=== PATIENT | female | born 1950 | race Hispanic/Latino ===

== ENCOUNTER 2018-11-02 07:23 | Inpatient (IN) | payer MEDICARE, BC ==
[2018-11-02] MEDS ORDERED: Sodium Chloride 0.9% 1,000 ML IV STA ×2 (07:37→15:55)
--- NOTE | 2018-11-02 07:56 | ED PDOC ---
Arrival/HPI - General Chief Complaint: Weakness/Neurological Deficit Time Seen by Provider: 11/02/18 07:26 Historian: Patient - History of Present Illness Narrative History of Present Illness (Text): 11/02/18 08:07 68 year old F with pmh of kidney CA (last chemo 3d prior), L nephrectomy, HLD and spinal tumor resection presents with chief complaint of generalized weakness x4days. Patient reports decreased PO intake x3days. Patient also complains of nausea w/ dry mouth and non bloody diarrhea recently. Patient denies being on dialysis or any use of antibiotics. Patient denies any slurred speech, fevers, chills, headache, dizziness, chest pain, shortness of breath, dyspnea on exertion, cough, diaphoresis, abdominal pain, back pain, neck pain, or any other complaint. PCP: Dr. Mcclelland Past Medical History - Provider Review Nursing Documentation Reviewed: Yes - Infectious Disease Hx of Infectious Diseases: None - Reproductive Menopause: Yes - Cardiac Hx Cardiac Disorders: No Hx Pacemaker: No - Pulmonary Hx Respiratory Disorders: No - Neurological Hx Neurological Disorder: No Hx Paralysis: No - HEENT Hx HEENT Disorder: No - Renal Hx Renal Disorder: Yes Other/Comment: kidney CA - Endocrine/Metabolic Hx Endocrine Disorders: No - Hematological/Oncological Hx Blood Transfusions: No - Integumentary Hx Dermatological Disorder: No - Musculoskeletal/Rheumatological Hx Musculoskeletal Disorders: No - Gastrointestinal Hx Gastrointestinal Disorders: No - Genitourinary/Gynecological Hx Genitourinary Disorders: No - Psychiatric Hx Psychophysiologic Disorder: No Hx Emotional Abuse: No Hx Physical Abuse: No Hx Substance Use: No - Surgical History Other/Comment: left nephrectomy. spine surgery - Anesthesia Hx Anesthesia: Yes Hx Anesthesia Reactions: No Hx Malignant Hyperthermia: No - Suicidal Assessment Feels Threatened In Home Enviroment: No Family/Social History - Physician Review Nursing Documentation Reviewed: Yes Family/Social History: Unknown Family HX Smoking Status: Never Smoked Hx Alcohol Use: Yes (OCCASIONAL WINE) Hx Substance Use: No Allergies/Home Meds Allergies/Adverse Reactions: Allergies No Known Allergies Allergy (Verified 10/29/15 10:23) Home Medications: Home Meds Medication Instructions Recorded Confirmed Ezetimibe [Zetia] 10 mg PO DAILY 11/02/18 11/02/18 Gabapentin [Neurontin] 100 cap PO TID 11/02/18 11/02/18 Rosuvastatin Calcium [Crestor] 10 mg PO DAILY 11/02/18 11/02/18 Valsartan 320 mg PO DAILY 11/02/18 11/02/18 amLODIPine [Norvasc] 10 mg PO DAILY 11/02/18 11/02/18 Review of Systems - Physician Review All systems were reviewed & negative as marked: Yes - Review of Systems Constitutional: absent: Fevers Eyes: absent: Vision Changes, Eye Pain ENT: absent: Sore Throat, Rhinorrhea Respiratory: absent: SOB, Cough Cardiovascular: absent: Chest Pain Gastrointestinal: Diarrhea, Nausea. absent: Abdominal Pain, Constipation, Vomiting Genitourinary Female: absent: Dysuria, Frequency, Hematuria, Urine Output Changes, Vaginal Bleeding, Vaginal Discharge Musculoskeletal: absent: Arthralgias, Back Pain Skin: absent: Rash, Skin Lesions Neurological: absent: Headache, Dizziness Psychiatric: absent: Anxiety, Depression Physical Exam Vital Signs Reviewed: Yes Vital Signs Temp Pulse Resp BP Pulse Ox 11/02/18 07:23 97.3 F L 77 18 84/56 L 100 Temperature: Afebrile Blood Pressure: Hypotensive Pulse: Regular Respiratory Rate: Normal Appearance: Positive for: Well-Appearing, Non-Toxic, Comfortable Pain Distress: Mild Mental Status: Positive for: Alert and Oriented X 3 - Systems Exam Head: Present: Atraumatic, Normocephalic Pupils: Present: PERRL Extroacular Muscles: Present: EOMI Conjunctiva: Present: Normal Ears: Present: Normal, NORMAL TM Mouth: Present: Dry Pharnyx: No: ERYTHEMA, EXUDATE Neck: Present: Normal Range of Motion, Trachea Midline, Other (c7 to T5 scar n oted, no crepitus or erythema, well healed). No: Meningeal Signs, MIDLINE TENDERNESS, JVD, Bruit Respiratory/Chest: Present: Clear to Auscultation, Good Air Exchange. No: Re spiratory Distress, Accessory Muscle Use Cardiovascular: Present: Regular Rate and Rhythm, Normal S1, S2. No: Murmurs Abdomen: No: Tenderness, Distention, Peritoneal Signs Back: Present: Normal Inspection. No: CVA Tenderness, Midline Tenderness Upper Extremity: Present: Normal Inspection, Normal ROM, NORMAL PULSES, Neurovascularly Intact. No: Cyanosis, Edema Lower Extremity: Present: Normal Inspection, NORMAL PULSES, Neurovascularly Intact. No: Edema, Temperature Abnormalties Neurological: Present: GCS=15, CN II-XII Intact, Speech Normal Skin: Present: Warm, Dry, Normal Color. No: Rashes Psychiatric: Present: Alert, Oriented x 3, Normal Insight, Normal Concentration Medical Decision Making ED Course and Treatment: 11/02/18 08:05 Impression: 68 year old F w/ hx of HLD, L kidney nephrectomy 2/2 Kidney CA currently on chemo p/w presents with chief complaint of generalized weakness x4days. Recent, nausea, vomiting, diarrhea. No recent antibiotics. No dark or bloody stool. No meningeal signs. No unilateral weakness or slurred speech. No abdominal pain, chest pain, rash or fever, chills or night sweats. Pt initially hypotensive and dry appearing on exam, likely dehydration but given on chemo will seek infectious w/u. Plan: -- Labs -- EKG -- Chest X-ray -- UA -- Reassess and disposition Prior Visits: Notes and results from previous visits were reviewed. Progress Notes: 11/02/18 08:17 EKG shows NSR at 72 BPM, No STEMI. 11/02/18 08:33 QTc prolonged: appreciate consult w/ Pharmacy: [facility] 11/02/18 09:21 Vitals improved Pending CMP, CBC largely unremarkable Lactic elevated at 2.3, fluids running, no leukocytosis or fever CXR per my read unremarkable, Pending UA, CMP 11/02/18 09:46 Last cr 1.2 per family 1 month prior, 10 now severe LAURA: pt notes making urine yesterday Severe LAURA: endorsed to ICU Dr. Rodrigues to eval Hypocalcemia w/ Long QT: calcium ordered 11/02/18 10:24 appreciate consult w/ Dr. Rodrigues: pt to be admitted ICU Paged Dr. Gary for admission: Pt in NAD 11/02/18 10:29 appreciate consult w/ Dr. Gary (Nephrology + IM): to admit to his service w/ ICU pt in [facility], agreeable to plan - RAD Interpretation Radiology Orders: 11/02/18 07:37 CHEST TWO VIEWS (PA/LAT) [RAD] Stat - Medication Orders Current Medication Orders: Sodium Chloride (Sodium Chloride 0.9%) 1,000 mls @ 999 mls/hr IV .Q1H1M STA Stop: 04/10/19 08:37 - Scribe Statement The provider has reviewed the documentation as recorded by the Gavin Hyman All medical record entries made by the Brunaibsteven were at my direction and personally dictated by me. I have reviewed the chart and agree that the record accurately reflects my personal performance of the history, physical exam, medical decision making, and the department course for this patient. I have also personally directed, reviewed, and agree with the discharge instructions and disposition. Disposition/Present on Arrival - Present on Arrival Any Indicators Present on Arrival: No History of DVT/PE: No History of Uncontrolled Diabetes: No Urinary Catheter: No History of Decub. Ulcer: No History Surgical Site Infection Following: None - Disposition Have Diagnosis and Disposition been Completed?: Yes Diagnosis: LAURA (acute kidney injury), Hypocalcemia Disposition Time: 09:48 Patient Problems: Current Active Problems Problem Status Onset LAURA (acute kidney injury) Acute Hypocalcemia Acute Condition: STABLE Forms: [facility] ([place])
[2018-11-02 08:16] LABS: BASO # 0.01 K/mm3 (0.0-2.0); BASO % 0.2 % (0.0-3.0); EOS % 0.5 % (1.5-5.0); HEMOGLOBIN 12.8 g/dL (12.0-16.0); LYMPH % 14.8 % (22.0-35.0); MEAN CELL VOLUME 106.1 fl (80.0-105.0); MEAN CORPUSCULAR HGB CONC 34.9 g/dl (31.0-37.0); MEAN PLATELET VOLUME 10.1 fl (7.0-11.0); MONO # 0.3 (0.1-0.6); MONO % 4.1 % (1.0-6.0); RBC 3.46 10^6/uL (3.5-6.1); RED CELL DISTRIBUTION WIDTH 15.1 % (11.5-14.5); WHITE BLOOD COUNT 6.6 10^3/uL (4.5-11.0)
[2018-11-02 08:25] LABS: VENOUS BLOOD GAS BASE EXCESS -12.3 mmol/L (0.0-2.0); VENOUS BLOOD GAS PO2 68 mm/Hg (30-55); VENOUS BLOOD PH 7.19 (7.32-7.43)
[2018-11-02] MEDS ORDERED: DiphenhydrAMINE 50 mg/ml Inj IVP STA (08:40)
[2018-11-02 09:32] LABS: ALB/GLOB RATIO 1.6 (1.1-1.8); ALBUMIN 3.8 g/dL (3.0-4.8)
[2018-11-02] MEDS ORDERED: Sodium Chloride 0.9% 1,000 ML IV ONE (09:45)
[2018-11-02 10:08] LABS: TROPONIN I 0.27 ng/mL
--- NOTE | 2018-11-02 10:11 | RAD ---
Date of service: 11/02/2018 HISTORY: hx of ca, weak COMPARISON: No prior. TECHNIQUE: Chest PA and lateral views FINDINGS: LUNGS: No active pulmonary disease. PLEURA: No significant pleural effusion identified. No pneumothorax apparent. CARDIOVASCULAR: No aortic atherosclerotic calcification present. Normal cardiac size. No pulmonary vascular congestion. OSSEOUS STRUCTURES: Surgical hardware in the upper thoracic spine. VISUALIZED UPPER ABDOMEN: Normal. OTHER FINDINGS: Right-sided Port-A-Cath IMPRESSION: No active disease.
--- NOTE | 2018-11-02 11:34 | CARD ---
APPROVED REPORT Date of service: 11/02/2018 EKG Measurement Heart [id number] <Conclusion> Normal sinus rhythm Nonspecific ST abnormality Prolonged QT Abnormal ECG
--- NOTE | 2018-11-02 11:59 | CP.PCM.CON ---
<Gianni Joaquin - Last Filed: 11/02/18 13:28> History of Present Illness - History of Present Illness History of Present Illness: Gianni Joaquin DO, PGY-1 MICU Consult Note for Dr. Rebecca Rodrigues CC: generalized weakness, decreased PO intake HPI: Ms. Sanders is a pleasant 68 year old female with PMH of renal cell carcinoma (s/p L nephrectomy and spinal tumor resection, last chemo 3 days ago), HTN, and HLD who presented to [facility] ED with a complaint of generalized weakness, fatigue and loss of appetite since last Wednesday. She states she has generally not felt well for the last 4 days. She states that last Wednesday she had persistent nausea/vomiting and diarrhea which has improved but the weakness/fatigue has worsened. In ED, she was noted to be hypotensive and severely hypocalcemic with EKG changes, prompting MICU consultation. Patient states that she has xerostomia but otherwise denies fever/chills, body aches, CP, SOB, current abd pain/nausea/vomiting/diarrhea, urinary complaints, PRATER, changes in vision, or recent sick contacts. 12-point ROS was otherwise negative except as specified above. PMD: Dr. Mcclelland Past Medical History: renal cell carcinoma (s/p L nephrectomy and spinal tumor resection, last chemo 3 days ago), HTN, and HLD Past Surgical History: L nephrectomy, spinal tumor resection, denies other surgical history Allergies: NKA Home medications: Crestor 10 mg daily, Zetia 10 mg daily, Norvasc 10 mg daily, Gabapentin 100 mg TID, valsartan 320 mg daily Family History: reviewed, non-contributory Social History: admits to prior social EtOH use but has not had a drink for the past year, denies current or prior tobacco or illicit drug use. She lives at home with her and has good support system. Past Patient History - Infectious Disease Hx of Infectious Diseases: None - Past Social History Smoking Status: Never Smoked - CARDIAC Hx Cardiac Disorders: No Hx Pacemaker: No - PULMONARY Hx Respiratory Disorders: No - NEUROLOGICAL Hx Neurological Disorder: No Hx Paralysis: No - HEENT Hx HEENT Problems: No - RENAL Hx Chronic Kidney Disease: Yes Other/Comment: kidney CA - ENDOCRINE/METABOLIC Hx Endocrine Disorders: No - HEMATOLOGICAL/ONCOLOGICAL Hx Blood Transfusions: No - INTEGUMENTARY Hx Dermatological Problems: No - MUSCULOSKELETAL/RHEUMATOLOGICAL Hx Musculoskeletal Disorders: No - GASTROINTESTINAL Hx Gastrointestinal Disorders: No - GENITOURINARY/GYNECOLOGICAL Hx Genitourinary Disorders: No - PSYCHIATRIC Hx Psychophysiologic Disorder: No Hx Emotional Abuse: No Hx Physical Abuse: No Hx Substance Use: No - SURGICAL HISTORY Other/Comment: left nephrectomy. spine surgery - ANESTHESIA Hx Anesthesia: Yes Hx Anesthesia Reactions: No Hx Malignant Hyperthermia: No Meds Allergies/Adverse Reactions: Allergies Allergy/AdvReac Type Severity Reaction Status Date / Time No Known Allergies Allergy Verified 10/29/15 10:23 - Medications Medications: Current Medications Sodium Chloride (Sodium Chloride 0.9%) 1,000 mls @ 250 mls/hr IV .Q4H ONE Stop: 11/02/18 13:44 Last Admin: 11/02/18 10:09 Dose: 250 mls/hr Physical Exam - Constitutional Appears: No Acute Distress, Other (no acute respiratory distress but appears fatigued, A/o x 4) - Head Exam Head Exam: ATRAUMATIC, NORMOCEPHALIC - Eye Exam Eye Exam: EOMI, PERRL - ENT Exam ENT Exam: Mucous Membranes Dry - Neck Exam Neck exam: Positive for: Full Rom. Negative for: Lymphadenopathy, Thyromegaly - Respiratory Exam Respiratory Exam: Clear to Auscultation Bilateral, NORMAL BREATHING PATTERN. absent: Accessory Muscle Use, Rales, Rhonchi, Wheezes, Respiratory Distress - Cardiovascular Exam Cardiovascular Exam: REGULAR RHYTHM, RRR, +S1, +S2. absent: Diastolic murmur, Gallop, Rubs, Systolic Murmur - GI/Abdominal Exam GI & Abdominal Exam: Normal Bowel Sounds, Soft. absent: Guarding, Rebound, Tenderness - Extremities Exam Extremities exam: Positive for: full ROM. Negative for: pedal edema - Back Exam Back exam: NORMAL INSPECTION - Neurological Exam Neurological exam: Alert, Oriented x3 - Psychiatric Exam Psychiatric exam: Normal Affect, Normal Mood - Skin Skin Exam: Dry, Pallor, Warm Results - Vital Signs Recent Vital Signs: Last Vital Signs Temp 97.3 F L 11/02/18 07:23 Pulse 72 11/02/18 10:17 Resp 18 11/02/18 10:17 BP 78/48 L 11/02/18 10:31 Pulse Ox 99 11/02/18 10:17 - Labs Result Diagrams: 11/02/18 07:58 11/02/18 12:30 Labs: Laboratory Results - last 24 hr 11/02/18 11/02/18 11/02/18 07:58 07:58 07:58 WBC 6.6 RBC 3.46 L Hgb 12.8 Hct 36.7 MCV 106.1 H MCH 37.0 H MCHC 34.9 RDW 15.1 H Plt Count 130 MPV 10.1 Neut % (Auto) 80.4 H Lymph % (Auto) 14.8 L [place] % (Auto) 4.1 Eos % (Auto) 0.5 L Baso % (Auto) 0.2 Lymph # (Auto) 1.0 L [place] # (Auto) 0.3 Eos # (Auto) 0.0 Baso # (Auto) 0.01 Absolute Neuts (auto) 5.35 pO2 68 H VBG pH 7.19 L* VBG pCO2 40.0 VBG HCO3 15.3 L VBG Total CO2 16.5 L VBG O2 Sat (Calc) 89.7 H VBG Base Excess -12.3 L VBG Potassium 3.3 L Sodium 131.0 L 138 Chloride 91.0 L 99 Glucose 95 Lactate 2.3 H FiO2 21.0 Crit Value Called To Sugar hyde Crit Value Called By Carol Blood Gas Notified Time 823 Potassium 3.3 L Carbon Dioxide 14 L Anion Gap 28 H BUN 64 H Creatinine 10.0 H* Est GFR ( Amer) 5 Est GFR (Non-Af Amer) 4 Random Glucose 83 Calcium 4.0 L* Total Bilirubin 0.6 AST 113 H ALT 108 H Alkaline Phosphatase 74 Troponin I 0.27 H* Total Protein 5.4 L Albumin 3.8 Globulin 2.4 Albumin/Globulin Ratio 1.6 Venous Blood Potassium 3.3 L Assessment & Plan - Assessment and Plan (Free Text) Assessment: 68 yo F with PMH of renal cell carcinoma (s/p L nephrectomy and spinal tumor resection, last chemo 3 days ago), HTN, and HLD admitted to MICU for management of acute renal failure, severe hypocalcemia with EKG changes, and positive troponin. Plan: Neuro: AAOx3, no focal deficit, moving extremities past midline, able to protect airway Reorient as necessary Cardio: Patient has been intermittently hypotensive with lowest MAP of 58 Access port for levophed, also has peripheral access May need to consider additional access such as PICC if needed EKG: QT prolongation consistent with hypocalcemia Troponin elevation may be 2/2 acute renal failure but will trend q4h overnight Maintain MAP>65 Monitor for S/Sx of HD compromise Cardiology consult placed, all recs appreciated /Nephro: Severe hypocalcemia may be 2/2 acute renal failure vs chemotherapy induced vs malignancy related Patient admits to having decreased UOP for past 4 days Akers placement with strict I & O Check BMP q4h overnight Single dose of Ca gluconate 1000 mg given in ED, will recheck and continue to replete as needed Continue to monitor Mg, Phos, replete as needed Consider adding phosphate binding agent with meals, given hyperphosphatemia Additional w/u of hypocalcemia with PTH, total protein, urine Cr, Ca AGMA identified on VBG performed on admission, likely 2/2 acute renal failure Continue IVF resuscitation, 1 L bolus given in ED, continue NS at 250 cc/hr Will add 150 mEq of HCO3 to IVF and monitor HCO3 closely May need to consider dialysis if patient is not responsive to fluid challenge Avoid nephrotoxic agents Nephrology, Dr. Gary following, all recs appreciated Pulm: Able to protect airway now and SpO2 is > 95% on room air Supplemental O2 NC PRN to maintain SpO2 > 90% GI: Tolerating diet well without nausea/vomiting Avoid zofran due to QT prolongation, may give phenergan if needed Endo: Random glucose: 83 Maintain euglycemia Heme/Onc: H/H stable at 12.8/36.7 Macrocytosis noted, may be malignancy related Will check folate, B12 Continue monitoring H/H and for sx of HD compromise ID: Afebrile, no leukocytosis F/u dumont cx, procal, lactate Monitor for sx of infection DVT/GI PPX: SC Heparin/protonix Full Code Heart Healthy, renal diet Monitor in MICU Patient seen, examined with, and plan discussed with my attending Dr. Rebecca Joaquin D.O. IM Resident PGY-1 Pager: [phone] <Constance Rodrigues - Last Filed: 11/02/18 18:17> Meds - Medications Medications: Current Medications Calcium Carbonate (Caltrate) 600 mg PO BID TEODORO Al Hydrox/Mg Hydrox/Simethicone 30 ml/Diphenhydramine HCl 75 mg/Lidocaine 30 ml 0 ml PO Q2H PRN PRN Reason: Mouth/Throat Pain Heparin Sodium (Porcine) (Heparin) 5,000 units SC Q8 TEODORO; Protocol Last Admin: 11/02/18 14:20 Dose: 5,000 units NOREPINEPHRINE BIT/0.9 % NACL (Levophed 4 Mg/ 250 Ml Ns Premixed) 4 mg in 250 mls @ 15 mls/hr IV .[id number] PRN; Protocol PRN Reason: TITRATE PER MD ORDER Last Titration: 11/02/18 15:46 Dose: 6 mcg/min, 22.5 mls/hr Potassium Chloride (Potassium Chloride 10 Meq/100 Ml) 10 meq in 100 mls @ 100 mls/hr IVPB ONCE ONE Stop: 11/02/18 18:32 Calcium Gluconate (Calcium Gluconate 1g/50ml Ns) 1 gm in 50 mls @ 50 mls/hr IV ONCE ONE Stop: 11/02/18 18:44 Sevelamer HCl (Renagel) 800 mg PO [facility] Vitamin A (Vitamin A & D Oint Ud Foilpak) 1 ea TOP Q6 PRN PRN Reason: Apply to dry lips Last Admin: 11/02/18 13:50 Dose: 1 ea Results - Vital Signs Recent Vital Signs: Last Vital Signs Temp 98.2 F 11/02/18 15:41 Pulse 68 11/02/18 15:41 Resp 14 11/02/18 15:41 BP 107/58 L 11/02/18 15:42 Pulse Ox 99 11/02/18 15:41 - Labs Result Diagrams: 11/02/18 07:58 11/02/18 16:00 Labs: Laboratory Results - last 24 hr 11/02/18 11/02/18 11/02/18 07:58 07:58 07:58 WBC 6.6 RBC 3.46 L Hgb 12.8 Hct 36.7 MCV 106.1 H MCH 37.0 H MCHC 34.9 RDW 15.1 H Plt Count 130 MPV 10.1 Neut % (Auto) 80.4 H Lymph % (Auto) 14.8 L [place] % (Auto) 4.1 Eos % (Auto) 0.5 L Baso % (Auto) 0.2 Lymph # (Auto) 1.0 L [place] # (Auto) 0.3 Eos # (Auto) 0.0 Baso # (Auto) 0.01 Absolute Neuts (auto) 5.35 pO2 68 H VBG pH 7.19 L* VBG pCO2 40.0 VBG HCO3 15.3 L VBG Total CO2 16.5 L VBG O2 Sat (Calc) 89.7 H VBG Base Excess -12.3 L VBG Potassium 3.3 L Sodium 131.0 L 138 Chloride 91.0 L 99 Glucose 95 Lactate 2.3 H FiO2 21.0 Crit Value Called To Sugar hyde Crit Value Called By Carol Blood Gas Notified Time 823 Potassium 3.3 L Carbon Dioxide 14 L Anion Gap 28 H BUN 64 H Creatinine 10.0 H* Est GFR ( Amer) 5 Est GFR (Non-Af Amer) 4 Random Glucose 83 Calcium 4.0 L* Phosphorus Magnesium Total Bilirubin 0.6 AST 113 H ALT 108 H Alkaline Phosphatase 74 Total Creatine Kinase CK-MB (CK-2) CK-MB (CK-2) % Troponin I 0.27 H* Total Protein 5.4 L Albumin 3.8 Globulin 2.4 Albumin/Globulin Ratio 1.6 25-OH Vitamin D Total Venous Blood Potassium 3.3 L Urine Color Urine Appearance Urine pH Ur Specific Hatch Urine Protein Urine Glucose (UA) Urine Ketones Urine Blood Urine Nitrate Urine Bilirubin Urine Urobilinogen Ur Leukocyte Esterase Urine RBC Urine WBC Ur Epithelial Cells Urine Bacteria U Random Total Protein 11/02/18 11/02/18 11/02/18 12:15 12:15 12:30 WBC RBC Hgb Hct MCV MCH MCHC RDW Plt Count MPV Neut % (Auto) Lymph % (Auto) [place] % (Auto) Eos % (Auto) Baso % (Auto) Lymph # (Auto) [place] # (Auto) Eos # (Auto) Baso # (Auto) Absolute Neuts (auto) pO2 31 VBG pH 7.26 L VBG pCO2 35.0 L VBG HCO3 15.7 L VBG Total CO2 16.8 L VBG O2 Sat (Calc) 49.9 VBG Base Excess -10.4 L VBG Potassium 3.5 L Sodium 134.0 133 Chloride 95.0 L 93 L Glucose 82 Lactate 1.4 FiO2 21.0 Crit Value Called To Crit Value Called By Blood Gas Notified Time Potassium 3.5 L Carbon Dioxide 16 L Anion Gap 27 H BUN 72 H Creatinine 11.0 H* Est GFR ( Amer) 4 Est GFR (Non-Af Amer) 3 Random Glucose 79 Calcium 4.3 L* Phosphorus 16.1 H Magnesium 1.1 L Total Bilirubin AST ALT Alkaline Phosphatase Total Creatine Kinase CK-MB (CK-2) CK-MB (CK-2) % Troponin I 0.25 H* Total Protein Albumin Globulin Albumin/Globulin Ratio 25-OH Vitamin D Total 28.1 L Venous Blood Potassium 3.5 L Urine Color Urine Appearance Urine pH Ur Specific Hatch Urine Protein Urine Glucose (UA) Urine Ketones Urine Blood Urine Nitrate Urine Bilirubin Urine Urobilinogen Ur Leukocyte Esterase Urine RBC Urine WBC Ur Epithelial Cells Urine Bacteria U Random Total Protein 11/02/18 11/02/18 11/02/18 13:30 13:30 16:00 WBC RBC Hgb Hct MCV MCH MCHC RDW Plt Count MPV Neut % (Auto) Lymph % (Auto) [place] % (Auto) Eos % (Auto) Baso % (Auto) Lymph # (Auto) [place] # (Auto) Eos # (Auto) Baso # (Auto) Absolute Neuts (auto) pO2 VBG pH VBG pCO2 VBG HCO3 VBG Total CO2 VBG O2 Sat (Calc) VBG Base Excess VBG Potassium Sodium 131 L Chloride 94 L Glucose Lactate FiO2 Crit Value Called To Crit Value Called By Blood Gas Notified Time Potassium 3.0 L Carbon Dioxide 13 L Anion Gap 27 H BUN 72 H Creatinine 10.5 H* Est GFR ( Amer) 4 Est GFR (Non-Af Amer) 4 Random Glucose 166 H Calcium 4.2 L* Phosphorus 13.8 H Magnesium 1.8 Total Bilirubin AST ALT Alkaline Phosphatase Total Creatine Kinase CK-MB (CK-2) CK-MB (CK-2) % Troponin I 0.20 H* Total Protein Albumin Globulin Albumin/Globulin Ratio 25-OH Vitamin D Total Venous Blood Potassium Urine Color Yellow Urine Appearance Sl cloudy Urine pH 5.5 Ur Specific Hatch 1.025 Urine Protein 100 H Urine Glucose (UA) Negative Urine Ketones Negative Urine Blood Moderate H Urine Nitrate Negative Urine Bilirubin Negative Urine Urobilinogen 0.2 Ur Leukocyte Esterase Negative Urine RBC 5 - 10 H Urine WBC 5 - 10 H Ur Epithelial Cells 4 - 5 Urine Bacteria Mod U Random Total Protein 81 11/02/18 16:00 WBC RBC Hgb Hct MCV MCH MCHC RDW Plt Count MPV Neut % (Auto) Lymph % (Auto) [place] % (Auto) Eos % (Auto) Baso % (Auto) Lymph # (Auto) [place] # (Auto) Eos # (Auto) Baso # (Auto) Absolute Neuts (auto) pO2 VBG pH VBG pCO2 VBG HCO3 VBG Total CO2 VBG O2 Sat (Calc) VBG Base Excess VBG Potassium Sodium Chloride Glucose Lactate FiO2 Crit Value Called To Crit Value Called By Blood Gas Notified Time Potassium Carbon Dioxide Anion Gap BUN Creatinine Est GFR ( Amer) Est GFR (Non-Af Amer) Random Glucose Calcium Phosphorus Magnesium Total Bilirubin AST ALT Alkaline Phosphatase Total Creatine Kinase 9379 H CK-MB (CK-2) 13.3 H CK-MB (CK-2) % 0.1 L Troponin I Total Protein Albumin Globulin Albumin/Globulin Ratio 25-OH Vitamin D Total Venous Blood Potassium Urine Color Urine Appearance Urine pH Ur Specific Hatch Urine Protein Urine Glucose (UA) Urine Ketones Urine Blood Urine Nitrate Urine Bilirubin Urine Urobilinogen Ur Leukocyte Esterase Urine RBC Urine WBC Ur Epithelial Cells Urine Bacteria U Random Total Protein Addendum Addendum: 11/02/18 18:17 ICU Attending Addendum Patient seen and examined. Case reviewed on round with housestaff. Agree with resident note above with the following additions/exceptions 68F with PMH of renal cell carcinoma (s/p L nephrectomy and spinal tumor resection, last chemo 3 days ago), HTN presents with 3 days of diarrhea vomitting found to be in acute renal failure with severe hypocalcemia I suspect she is severaly dehydrted from volume loss fluids challenge at lest 3-4L insert akers, monitor urine output check renal US nephro on board managing electrolyte abnormalities including severe hypoCa, hypo mag, hypoK will start levophed keep MAP > 65 no fever, no leukocytosis thius holding off on empiric abx f.u dumont cultures Spoke with PMD Dr Mcclelland and updated her will place call out to her oncologist as well since they may be also a side effect of a medication she may be on which we will verify Rest of care as above in housestaff note Constance Rodrigues MD Pulmonary Critical Care Attending
[2018-11-02] MEDS ORDERED: Potassium Chloride 20 mEq ER Tab PO ONE (12:21)
[2018-11-02 12:31] LABS: VENOUS BLOOD GAS BASE EXCESS -10.4 mmol/L (0.0-2.0); VENOUS BLOOD GAS PO2 31 mm/Hg (30-55); VENOUS BLOOD PH 7.26 (7.32-7.43)
[2018-11-02] MEDS: NOREPINEPHRINE BIT/0.9 % NACL 4 MG/250 ML BAG IV PRN (12:45)
[2018-11-02 13:08] LABS: CALCIUM 4.3 mg/dL (8.4-10.5); TROPONIN I 0.25 ng/mL
[2018-11-02] MEDS ORDERED: Calcium Gluconate in NS 1 GM/50 ML BAG IV ONE ×3 (13:19→22:30)
[2018-11-02] MEDS ORDERED: Sodium Bicarbonate 8.4% 150 MEQ in Dextrose 5% In Water 1,000 ML IV ONE (13:23)
[2018-11-02] MEDS ORDERED: Magnesium Sulfate 2 gm/50 ml 2 GM/50 ML BAG IVPB ONE ×2 (13:29→22:26)
[2018-11-02] MEDS ORDERED: Aluminum Hydroxide/Magnesium 30 ML, DiphenhydrAMINE 75 MG, Lidocaine 2% Viscous 30 ML PO PRN (13:46)
[2018-11-02] MEDS: Vitamins A & D Oint UD Foilpak TOP PRN (13:50)
--- NOTE | 2018-11-02 14:16 | CP.PCM.HP ---
<Efraín John - Last Filed: 11/03/18 08:47> History of Present Illness - History of Present Illness History of Present Illness: Curtis Alvaro PGY2 - History and Physical for Dr. Gary CC: Fatigue HPI: 68 year old female with past medical history significant for HTN, HLD, renal cell carcinoma s/p left nephrectomy 2 years prior and spinal tumor resection and recent completion of chemotherapy who presented to [facility] ED with complaints of fatigue, generalized weakness, limited oral intake and diarrhea for the past 4 days. Patient reported that over the weekend she began to experience more and more feelings of fatigue and poor oral intake secondary to oral ulcers. She indicated that she developed diarrhea for which she credited to a stomach bug. She reports being mostly bed bound for the past few days. She denied headache, changes in vision, chest pain, shortness of breath, abdominal discomfort, constipation, nausea, vomiting, dysuria, hematuria, fever, chills. She did report minimal urine output secondary to poor oral intake, diarrhea like episodes x2-3 daily without blood or mucous, recent antibiotic usage or hospitalizations. She does follow with a Dr. Charles at [facility] for her oncological treatment plan. She indicates that she recently stopped her chemo regiment of cabometyx this Wednesday with plans to change her therapy. She reports taking this medication for the past few weeks. 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 Mcclelland Onc: Dr. Charles at [facility] Present on Admission - Present on Admission Any Indicators Present on Admission: No Review of Systems - Review of Systems All systems: reviewed and no additional remarkable complaints except (as mentioned in HPI) Past Patient History - Infectious Disease Hx of Infectious Diseases: None - Past Social History Smoking Status: Never Smoked - CARDIAC Hx Cardiac Disorders: No Hx Pacemaker: No - PULMONARY Hx Respiratory Disorders: No - NEUROLOGICAL Hx Neurological Disorder: No Hx Paralysis: No - HEENT Hx HEENT Problems: No - RENAL Hx Chronic Kidney Disease: Yes Other/Comment: kidney CA - ENDOCRINE/METABOLIC Hx Endocrine Disorders: No - HEMATOLOGICAL/ONCOLOGICAL Hx Blood Transfusions: No - INTEGUMENTARY Hx Dermatological Problems: No - MUSCULOSKELETAL/RHEUMATOLOGICAL Hx Musculoskeletal Disorders: No - GASTROINTESTINAL Hx Gastrointestinal Disorders: No - GENITOURINARY/GYNECOLOGICAL Hx Genitourinary Disorders: No - PSYCHIATRIC Hx Psychophysiologic Disorder: No Hx Emotional Abuse: No Hx Physical Abuse: No Hx Substance Use: No - SURGICAL HISTORY Other/Comment: left nephrectomy. spine surgery - ANESTHESIA Hx Anesthesia: Yes Hx Anesthesia Reactions: No Hx Malignant Hyperthermia: No Meds Allergies/Adverse Reactions: Allergies Allergy/AdvReac Type Severity Reaction Status Date / Time No Known Allergies Allergy Verified 10/29/15 10:23 Physical Exam - Constitutional Appears: Older Than Stated Age, Chronically Ill Additional comments: lethargic - Head Exam Head Exam: ATRAUMATIC, NORMOCEPHALIC - Eye Exam Eye Exam: EOMI, PERRL - ENT Exam Additional comments: oral ulcers, dry mouth - Respiratory Exam Respiratory Exam: Clear to Auscultation Bilateral, NORMAL BREATHING PATTERN. absent: Rales, Rhonchi, Wheezes - Cardiovascular Exam Cardiovascular Exam: REGULAR RHYTHM, +S1, +S2 - GI/Abdominal Exam GI & Abdominal Exam: Diminished Bowel Sounds, Soft. absent: Distended, Firm, Guarding, Mass - Extremities Exam Extremities exam: Negative for: calf tenderness, pedal edema, tenderness - Neurological Exam Neurological exam: Alert, CN II-XII Intact, Oriented x3 Additional comments: Motor and Sensory intact - Psychiatric Exam Additional comments: Lethargic, in good spirits, social smile, cooperative with exam - Skin Skin Exam: Dry, Warm Results - Vital Signs Recent Vital Signs: Last Vital Signs Temp 97.3 F L 11/02/18 07:23 Pulse 74 11/02/18 13:40 Resp 13 11/02/18 13:40 BP 108/52 L 11/02/18 13:30 Pulse Ox 98 11/02/18 13:40 - Labs Result Diagrams: 11/03/18 05:30 11/03/18 05:30 Labs: Laboratory Results - last 24 hr 11/02/18 11/02/18 11/02/18 07:58 07:58 07:58 WBC 6.6 RBC 3.46 L Hgb 12.8 Hct 36.7 MCV 106.1 H MCH 37.0 H MCHC 34.9 RDW 15.1 H Plt Count 130 MPV 10.1 Neut % (Auto) 80.4 H Lymph % (Auto) 14.8 L Pacific % (Auto) 4.1 Eos % (Auto) 0.5 L Baso % (Auto) 0.2 Lymph # (Auto) 1.0 L Pacific # (Auto) 0.3 Eos # (Auto) 0.0 Baso # (Auto) 0.01 Absolute Neuts (auto) 5.35 pO2 68 H VBG pH 7.19 L* VBG pCO2 40.0 VBG HCO3 15.3 L VBG Total CO2 16.5 L VBG O2 Sat (Calc) 89.7 H VBG Base Excess -12.3 L VBG Potassium 3.3 L Sodium 131.0 L 138 Chloride 91.0 L 99 Glucose 95 Lactate 2.3 H FiO2 21.0 Crit Value Called To Sugar hyde Crit Value Called By Carol Blood Gas Notified Time 823 Potassium 3.3 L Carbon Dioxide 14 L Anion Gap 28 H BUN 64 H Creatinine 10.0 H* Est GFR ( Amer) 5 Est GFR (Non-Af Amer) 4 Random Glucose 83 Calcium 4.0 L* Phosphorus Magnesium Total Bilirubin 0.6 AST 113 H ALT 108 H Alkaline Phosphatase 74 Troponin I 0.27 H* Total Protein 5.4 L Albumin 3.8 Globulin 2.4 Albumin/Globulin Ratio 1.6 Venous Blood Potassium 3.3 L U Random Total Protein 11/02/18 11/02/18 11/02/18 12:15 12:30 13:30 WBC RBC Hgb Hct MCV MCH MCHC RDW Plt Count MPV Neut % (Auto) Lymph % (Auto) Pacific % (Auto) Eos % (Auto) Baso % (Auto) Lymph # (Auto) Pacific # (Auto) Eos # (Auto) Baso # (Auto) Absolute Neuts (auto) pO2 31 VBG pH 7.26 L VBG pCO2 35.0 L VBG HCO3 15.7 L VBG Total CO2 16.8 L VBG O2 Sat (Calc) 49.9 VBG Base Excess -10.4 L VBG Potassium 3.5 L Sodium 134.0 133 Chloride 95.0 L 93 L Glucose 82 Lactate 1.4 FiO2 21.0 Crit Value Called To Crit Value Called By Blood Gas Notified Time Potassium 3.5 L Carbon Dioxide 16 L Anion Gap 27 H BUN 72 H Creatinine 11.0 H* Est GFR ( Amer) 4 Est GFR (Non-Af Amer) 3 Random Glucose 79 Calcium 4.3 L* Phosphorus 16.1 H Magnesium 1.1 L Total Bilirubin AST ALT Alkaline Phosphatase Troponin I 0.25 H* Total Protein Albumin Globulin Albumin/Globulin Ratio Venous Blood Potassium 3.5 L U Random Total Protein 81 Assessment & Plan - Assessment and Plan (Free Text) Assessment: 1.LAURA 2.Anion Gap Metabolic Acidosis 3.Severe Hypocalcemia 4.Hypokalemia 5.Hyperphosphotemia 6.Hypomagnesium 7.Elevated Troponin 8.Prolonged QT 9.Hypotensive 10.Macrocytosis 11.Renal Cell Carcinoma s/p Left nephrectomy Patient is admitted to ICU for acute kidney injury and multiple electrolyte abnormalities. Patient is to have fluid challenge with aggressive IVF along with sodium bicarb gtt for prolonged QT. She will have a akers placed for strict monitoring of urine output. Electrolytes to be replaced with IV caclcium gluconate, Magnesium. Will get further evaluation of hypocalcemia with PTH, total protein, urine Cr and serial calcium serum levels with plans for further administration of calclium gluconate. Will also get further urine studies to investigate underlying renal injury as dehydration and volume loss appear to be contributing to problem rather than only explanation. Have placed multiple calls to oncologist for further information regarding her chemo regiments and case, awaiting call back. Patient will need aggressive monitoring of electrolytes with serial CMP and continuous telemetry monitoring. Her acidosis and electrolyte abnormalities will continue to be monitored with consideration of dialysis. At this current time patient will continue to undergo fluid replacement and further testing for the next 12-24 hours. Patients hypotension is to be monitored and treated with IV pressors, levophed, and IVF with goal MAP >65 mmHg. Further recommendations per Dr. Gary. GI and DVT ppx. Patient seen, case and plan discussed with Dr. Gary <Nate Gary S - Last Filed: 11/03/18 20:24> Results - Vital Signs Recent Vital Signs: Last Vital Signs Temp 99.1 F 11/03/18 18:24 Pulse 86 11/03/18 18:24 Resp 20 11/03/18 18:20 BP 107/50 L 11/03/18 18:00 Pulse Ox 98 11/03/18 18:24 - Labs Result Diagrams: 11/03/18 11:25 11/03/18 15:50 Labs: Laboratory Results - last 24 hr 11/02/18 11/02/18 11/02/18 08:00 14:00 16:00 WBC RBC Hgb Hct MCV MCH MCHC RDW Plt Count MPV Neut % (Auto) Lymph % (Auto) Pacific % (Auto) Eos % (Auto) Baso % (Auto) Lymph # (Auto) Pacific # (Auto) Eos # (Auto) Baso # (Auto) Absolute Neuts (auto) PT INR APTT Sodium Potassium Chloride Carbon Dioxide Anion Gap BUN Creatinine Est GFR ( Amer) Est GFR (Non-Af Amer) Random Glucose Uric Acid Calcium Ionized Calcium <2.50 L Phosphorus Magnesium Total Bilirubin AST ALT Alkaline Phosphatase Lactate Dehydrogenase Total Creatine Kinase CK-MB (CK-2) CK-MB (CK-2) % Troponin I Total Protein Albumin Globulin Albumin/Globulin Ratio Triglycerides Cholesterol LDL Cholesterol Direct HDL Cholesterol Amylase Lipase Vitamin B12 Folate Procalcitonin Free T4 Thyroxine (T4) Free T3 pg/mL TSH 3rd Generation PTH w/Ion &Tot Calcium 877 H Cortisol AM Sample Urine Eosinophils Negative 11/02/18 11/03/18 11/03/18 21:26 01:08 05:30 WBC 3.9 L D RBC 2.75 L Hgb 10.1 L D Hct 29.2 L MCV 106.2 H MCH 36.7 H MCHC 34.6 RDW 15.0 H Plt Count 130 MPV 10.1 Neut % (Auto) 71.4 H Lymph % (Auto) 21.6 L Pacific % (Auto) 6.2 H Eos % (Auto) 0.5 L Baso % (Auto) 0.3 Lymph # (Auto) 0.8 L Pacific # (Auto) 0.2 Eos # (Auto) 0.0 Baso # (Auto) 0.01 Absolute Neuts (auto) 2.78 PT INR APTT Sodium 131 L 132 Potassium 2.6 L* 3.6 Chloride 96 L 100 Carbon Dioxide 19 L 18 L Anion Gap 18 18 BUN 67 H 62 H Creatinine 8.9 H* 8.0 H* Est GFR ( Amer) 5 6 Est GFR (Non-Af Amer) 4 5 Random Glucose 80 93 Uric Acid Calcium 4.2 L* 4.5 L* Ionized Calcium Phosphorus 9.2 H 8.1 H Magnesium 1.4 L 2.3 H Total Bilirubin AST ALT Alkaline Phosphatase Lactate Dehydrogenase Total Creatine Kinase CK-MB (CK-2) CK-MB (CK-2) % Troponin I 0.19 H* 0.17 H* Total Protein Albumin Globulin Albumin/Globulin Ratio Triglycerides Cholesterol LDL Cholesterol Direct HDL Cholesterol Amylase 92 Lipase 511 H Vitamin B12 Folate Procalcitonin Free T4 Thyroxine (T4) Free T3 pg/mL TSH 3rd Generation PTH w/Ion &Tot Calcium Cortisol AM Sample Urine Eosinophils 11/03/18 11/03/18 11/03/18 05:30 05:30 05:30 WBC RBC Hgb Hct MCV MCH MCHC RDW Plt Count MPV Neut % (Auto) Lymph % (Auto) Pacific % (Auto) Eos % (Auto) Baso % (Auto) Lymph # (Auto) Pacific # (Auto) Eos # (Auto) Baso # (Auto) Absolute Neuts (auto) PT 16.5 H INR 1.46 APTT 35.5 Sodium 135 Potassium 3.8 Chloride 104 Carbon Dioxide 18 L Anion Gap 17 BUN 57 H Creatinine 7.1 H Est GFR ( Amer) 7 Est GFR (Non-Af Amer) 6 Random Glucose 89 Uric Acid Calcium 4.6 L* Ionized Calcium Phosphorus 6.8 H Magnesium 2.0 Total Bilirubin 0.8 AST 91 H ALT 92 H Alkaline Phosphatase 76 Lactate Dehydrogenase Total Creatine Kinase 6256 H CK-MB (CK-2) 8.3 H CK-MB (CK-2) % 0.1 L Troponin I Total Protein 5.0 L Albumin 2.6 L Globulin 2.4 Albumin/Globulin Ratio 1.1 Triglycerides 232 H Cholesterol 173 LDL Cholesterol Direct 101 HDL Cholesterol 33 Amylase Lipase Vitamin B12 635 Folate > 20.0 Procalcitonin Free T4 Thyroxine (T4) Free T3 pg/mL TSH 3rd Generation 39.40 H PTH w/Ion &Tot Calcium Cortisol AM Sample Urine Eosinophils 11/03/18 11/03/18 11/03/18 07:00 07:00 07:00 WBC RBC Hgb Hct MCV MCH MCHC RDW Plt Count MPV Neut % (Auto) Lymph % (Auto) Pacific % (Auto) Eos % (Auto) Baso % (Auto) Lymph # (Auto) Pacific # (Auto) Eos # (Auto) Baso # (Auto) Absolute Neuts (auto) PT INR APTT Sodium Potassium Chloride Carbon Dioxide Anion Gap BUN Creatinine Est GFR ( Amer) Est GFR (Non-Af Amer) Random Glucose Uric Acid Calcium Ionized Calcium Phosphorus Magnesium Total Bilirubin AST ALT Alkaline Phosphatase Lactate Dehydrogenase Total Creatine Kinase CK-MB (CK-2) CK-MB (CK-2) % Troponin I Total Protein Albumin Globulin Albumin/Globulin Ratio Triglycerides Cholesterol LDL Cholesterol Direct HDL Cholesterol Amylase Lipase Vitamin B12 Folate Procalcitonin Free T4 0.92 Thyroxine (T4) 4.3 L Free T3 pg/mL 2.48 L TSH 3rd Generation PTH w/Ion &Tot Calcium Cortisol AM Sample 12.9 Urine Eosinophils 11/03/18 11/03/18 11/03/18 09:20 11:25 11:25 WBC 4.1 L RBC 2.66 L Hgb 9.9 L Hct 28.4 L MCV 106.8 H MCH 37.2 H MCHC 34.9 RDW 15.0 H Plt Count 128 MPV 9.8 Neut % (Auto) 74.5 H Lymph % (Auto) 19.2 L Pacific % (Auto) 5.8 Eos % (Auto) 0.5 L Baso % (Auto) 0.0 Lymph # (Auto) 0.8 L Pacific # (Auto) 0.2 Eos # (Auto) 0.0 Baso # (Auto) 0.00 Absolute Neuts (auto) 3.07 PT INR APTT Sodium 135 Potassium 3.2 L Chloride 106 Carbon Dioxide 19 L Anion Gap 13 BUN 51 H Creatinine 5.8 H Est GFR ( Amer) 9 Est GFR (Non-Af Amer) 7 Random Glucose 123 H Uric Acid 9.0 H Calcium 4.8 L* Ionized Calcium Phosphorus Magnesium Total Bilirubin AST ALT Alkaline Phosphatase Lactate Dehydrogenase 3914 H Total Creatine Kinase CK-MB (CK-2) CK-MB (CK-2) % Troponin I Total Protein Albumin Globulin Albumin/Globulin Ratio Triglycerides Cholesterol LDL Cholesterol Direct HDL Cholesterol Amylase Lipase Vitamin B12 Folate Procalcitonin Free T4 Thyroxine (T4) Free T3 pg/mL TSH 3rd Generation PTH w/Ion &Tot Calcium Cortisol AM Sample Urine Eosinophils 11/03/18 11/03/18 11/03/18 11:47 12:15 15:50 WBC RBC Hgb Hct MCV MCH MCHC RDW Plt Count MPV Neut % (Auto) Lymph % (Auto) Pacific % (Auto) Eos % (Auto) Baso % (Auto) Lymph # (Auto) Pacific # (Auto) Eos # (Auto) Baso # (Auto) Absolute Neuts (auto) PT INR APTT Sodium 135 Potassium 3.6 Chloride 105 Carbon Dioxide 20 L Anion Gap 13 BUN 46 H Creatinine 5.0 H Est GFR ( Amer) 10 Est GFR (Non-Af Amer) 9 Random Glucose 156 H Uric Acid Calcium 5.4 L* Ionized Calcium Phosphorus Magnesium Total Bilirubin AST ALT Alkaline Phosphatase Lactate Dehydrogenase Total Creatine Kinase CK-MB (CK-2) CK-MB (CK-2) % Troponin I Total Protein Albumin Globulin Albumin/Globulin Ratio Triglycerides Cholesterol LDL Cholesterol Direct HDL Cholesterol Amylase Lipase 1175 H Vitamin B12 Folate Procalcitonin 2.11 H Free T4 Thyroxine (T4) Free T3 pg/mL TSH 3rd Generation PTH w/Ion &Tot Calcium Cortisol AM Sample Urine Eosinophils Assessment & Plan - Assessment and Plan (Free Text) Assessment: Pt seen and examined by me. I have reviewed the note of the medical office scheduler and I agree with it. I have discussed the assessment and plan with the resident. I have reviewed the medications and the last labs.
--- NOTE | 2018-11-02 14:51 | US ---
Date of service: 11/02/2018 PROCEDURE: Ultrasound of the Kidneys HISTORY: worsening renal failure hx L nephrectomy COMPARISON: None available. TECHNIQUE: Sonogram of the kidneys. FINDINGS: RIGHT KIDNEY: Measures: 5.9 x 10.0 cm. Normal in size, contour and echogenicity. No stone, solid mass lesion or hydronephrosis visualized. LEFT KIDNEY: Prior left nephrectomy by history 2 years ago. OTHER FINDINGS: None. IMPRESSION: Status post left nephrectomy. Unremarkable right renal sonogram.
[2018-11-02 15:06] VITALS: BMI 23.6
[2018-11-02] MEDS ORDERED: Influenza Vaccine 60 mcg/0.5 mL SYR (4YR UP) IM ONE (15:07)
[2018-11-02 17:19] LABS: CALCIUM 4.2 mg/dL (8.4-10.5); TROPONIN I 0.2 ng/mL
[2018-11-02 17:29] LABS: PH,URINE 5.5 (4.7-8.0); URINE BILIRUBIN NEGATIVE (NEGATIVE); URINE BLOOD MODERATE (NEGATIVE); URINE GLUCOSE (UA) NEGATIVE (NEGATIVE); URINE LEUKOCYTE ESTERASE NEGATIVE Leu/uL (NEGATIVE); URINE PROTEIN 100 mg/dL (<30 mg/dL); URINE UROBILINOGEN 0.2 E.U./dL (<1 E.U./dL)
[2018-11-02 17:32] LABS: URINE APPEARANCE SL CLOUDY (CLEAR); URINE COLOR YELLOW (YELLOW)
[2018-11-02 17:46] LABS: URINE BACTERIA MOD /hpf
[2018-11-02 18:07] LABS: CK MB% 0.1 % (2.5-3.0); CK-MB 13.3 ng/mL (0.0-3.6)
[2018-11-02] MEDS: Sodium Chloride 0.9% 1,000 ML IV SCH (18:45)
[2018-11-02 22:06] LABS: CALCIUM 4.2 mg/dL (8.4-10.5); TROPONIN I 0.19 ng/mL
[2018-11-03] MEDS: Sodium Chloride 0.9% 1,000 ML IV SCH ×2 (00:25→03:17)
--- NOTE | 2018-11-03 01:12 | CP.PCM.PN ---
Subjective - Date & Time of Evaluation Date of Evaluation: 11/03/18 Time of Evaluation: 01:11 - Subjective Subjective: To be dictated co-signed mag 2, k sandip 20x 2, ca gluc 1 Objective - Vital Signs/Intake and Output Vital Signs (last 24 hours): Temp Pulse Resp BP Pulse Ox 99.0 F 79 54 H 116/59 L 97 11/02/18 19:29 11/02/18 19:29 11/02/18 19:29 11/02/18 19:30 11/02/18 19:29 Intake and Output: 11/02/18 11/03/18 18:59 06:59 Intake Total 5000 90 Output Total 400 Balance 4600 90 - Medications Medications: Current Medications Calcitriol (Rocaltrol) 0.25 mcg PO ONCE ONE Stop: 11/03/18 20:27 Calcium Carbonate (Caltrate) 600 mg PO BID TEODORO Last Admin: 11/02/18 18:16 Dose: 600 mg Al Hydrox/Mg Hydrox/Simethicone 30 ml/Diphenhydramine HCl 75 mg/Lidocaine 30 ml 0 ml PO Q2H PRN PRN Reason: Mouth/Throat Pain Last Admin: 11/02/18 18:57 Dose: 15 isabel Heparin Sodium (Porcine) (Heparin) 5,000 units SC Q8 TEODORO; Protocol Last Admin: 11/02/18 22:21 Dose: 5,000 units NOREPINEPHRINE BIT/0.9 % NACL (Levophed 4 Mg/ 250 Ml Ns Premixed) 4 mg in 250 mls @ 15 mls/hr IV .[id number] PRN; Protocol PRN Reason: TITRATE PER MD ORDER Last Titration: 11/02/18 20:46 Dose: 6 mcg/min, 22.5 mls/hr Sodium Chloride (Sodium Chloride 0.9%) 1,000 mls @ 250 mls/hr IV .Q4H TEODORO Last Admin: 11/03/18 00:25 Dose: 250 mls/hr Potassium Chloride (Potassium Chloride 20 Meq/100 Ml) 20 meq in 100 mls @ 50 mls/hr IVPB Q2H TEODORO Stop: 11/03/18 06:29 Last Admin: 11/03/18 00:22 Dose: 50 mls/hr Sevelamer HCl (Renagel) 800 mg PO AC TEODORO Last Admin: 11/02/18 18:15 Dose: 800 mg Vitamin A (Vitamin A & D Oint Ud Foilpak) 1 ea TOP Q6 PRN PRN Reason: Apply to dry lips Last Admin: 11/02/18 13:50 Dose: 1 ea - Labs Labs: 11/02/18 07:58 11/02/18 21:26
[2018-11-03 01:47] LABS: CALCIUM 4.5 mg/dL (8.4-10.5); TROPONIN I 0.17 ng/mL
--- NOTE | 2018-11-03 03:11 | HP ---
DATE OF EXAM: 11/02/2018 HOSPITAL COURSE: The patient was seen and examined. I do agree with the notes of the medical psychotherapist. I was involved in the plan of care. The patient has renal cell CA and had left nephrectomy 2 years ago. She has a baseline creatinine of 1 in 07/[address] Mcclelland, her primary care doctor. The patient has a history of hypertension and dyslipidemia. She has been receiving chemotherapy by her oncologist from [place]. The patient has been complaining of weakness and fatigue. She has been having poor p.o. intake, She has been having diarrhea for the past . She says that she thought she was having some stomach infection, but it was not improving. She denies any vomiting. No recent antibiotic usage. She denies any significant NSAID use. The patient does take her medications. She was found to have a creatinine that was significantly elevated. She had a prolonged QT. She was started on IV fluids, normal saline initially, and then added bicarb. She has anion gap metabolic acidosis that is most likely from her diarrhea. She has hypokalemia, hypomagnesemia, and severe hypocalcemia. The patient most likely has hypocalcemia from a combination of having acute kidney injury as well as hypomagnesemia. She will get calcium replacement. She has been placed on IV magnesium. She was given IV calcium in the ER. I will continue with oral calcium. I will order 25 vitamin D and PTH. The patient also has elevated troponin. She has a large differential because of acute kidney injury, it is most likely a combination of the diarrhea and hypovolemia that the patient had, it may have been prolonged and she developed ATN causing the LAURA. She also has medications she has been taking from her oncologist, this may have also caused her to have acute kidney injury directly or indirectly. She will need joint studies to quantify whether she has proteinuria. The patient will have repeat blood work done. The patient will need eosinophilia check in her urine to see if she has acute interstitial nephritis. She did get a renal ultrasound that was done showed that she is status post left nephrectomy, unremarkable right sonogram. I did speak to Dr. Mcclelland, the patient's primary doctor. She has renal cell carcinoma and we will try to get more information from her oncologist. At this time, the patient does not require dialysis. She is not uremic. Her potassium is not elevated. She does have a prolonged QT, but this can be treated with calcium. She will be on heparin for DVT prophylaxis. She is on Levophed for her blood pressure. We will repeat her EKG in the morning. I will add calcitriol to help with her hypocalcemia. I did speak with the patient's at bedside to give him an update on the patient's diagnoses and plan of care. She will need a Kimble to measure her urine output. Nate Gary MD
[2018-11-03] MEDS ORDERED: Calcium Gluconate in NS 1 GM/50 ML BAG IV ONE ×2 (05:05→11:36)
[2018-11-03] MEDS ORDERED: Levothyroxine 25 MCG TAB PO SCH (06:00)
[2018-11-03] MEDS ORDERED: Pantoprazole 40 mg EC Tab PO SCH (06:00)
[2018-11-03 06:41] LABS: INR 1.46; PARTIAL THROMBOPLASTIN TIME 35.5 Seconds (26.9-38.3); PROTHROMBIN TIME 16.5 SECONDS (9.4-12.5)
[2018-11-03 06:48] LABS: BASO # 0.01 K/mm3 (0.0-2.0); BASO % 0.3 % (0.0-3.0); EOS % 0.5 % (1.5-5.0); HEMOGLOBIN 10.1 g/dL (12.0-16.0); LYMPH # 0.8 (1.2-3.4); LYMPH % 21.6 % (22.0-35.0); MEAN CELL VOLUME 106.2 fl (80.0-105.0); MEAN CORPUSCULAR HEMOGLOBIN 36.7 pg (25.0-35.0); MEAN CORPUSCULAR HGB CONC 34.6 g/dl (31.0-37.0); MEAN PLATELET VOLUME 10.1 fl (7.0-11.0); MONO # 0.2 (0.1-0.6); MONO % 6.2 % (1.0-6.0); RBC 2.75 10^6/uL (3.5-6.1); WHITE BLOOD COUNT 3.9 10^3/uL (4.5-11.0)
[2018-11-03 07:37] LABS: LDL CHOLESTEROL 101 mg/dL (0-129)
--- NOTE | 2018-11-03 08:02 | CP.CCUPN ---
<Gianni Joaquin - Last Filed: 11/03/18 13:18> CCU Subjective - Physician Review Events Since Last Encounter (Free Text): Gianni Joaquin DO, PGY-1 MICU Progress Note for Dr. King Overnight, serial BMPs were completed q4h. Troponin continued to trend down. Ca continued to be low and additional doses of Ca gluconate were administered. Mg was also noted to be low and replaced again. She continued to require pressor support to maintain MAP > 65. Subjective (Free Text): Patient was seen and examined at beside this AM. She reports having trouble sleeping last night because of having blood drawn every 4 hours. She continues to complain of intermittent chills which are improved with heating blanket. She otherwise offers no complaints and denies fever, CP, SOB, abd pain/nausea/vomiting/diarrhea, urinary complaints, or palpitations. 12 point ROS was otherwise negative except as specified above. CCU Objective - Vital Signs / Intake & Output Vital Signs (Last 4 hours): Vital Signs Temp Pulse Resp BP Pulse Ox 11/03/18 07:21 99.1 F 88 98 11/03/18 07:20 99.1 F 77 15 96 11/03/18 07:19 99.1 F 76 98 11/03/18 07:10 99.1 F 78 23 97 11/03/18 07:00 99.0 F 79 19 123/66 97 11/03/18 06:50 99.0 F 99 H 30 H 98 11/03/18 06:41 99.0 F 113 H 96 11/03/18 06:40 99.0 F 111 H 27 H 95 11/03/18 06:39 99.0 F 85 96 11/03/18 06:30 95/59 L 11/03/18 06:29 99.0 F 147 H 11 L 94 L 11/03/18 06:20 99.0 F 147 H 14 95 11/03/18 06:13 98.8 F 150 H 95 11/03/18 06:10 98.8 F 146 H 9 L 96 11/03/18 06:03 98.8 F 138 H 97 11/03/18 06:00 98.8 F 150 H 13 119/67 96 11/03/18 05:59 98.8 F 131 H 96 11/03/18 05:53 98.6 F 123 H 96 11/03/18 05:52 98.6 F 146 H 96 11/03/18 05:50 98.6 F 169 H 69 H 96 11/03/18 05:40 98.6 F 73 19 94 L 11/03/18 05:35 98.6 F 72 95 11/03/18 05:30 99/58 L 11/03/18 05:29 98.6 F 72 13 94 L 11/03/18 05:20 98.6 F 71 11 L 94 L 11/03/18 05:14 98.6 F 74 97 11/03/18 05:10 98.6 F 72 12 96 11/03/18 05:00 98.6 F 73 18 117/68 96 11/03/18 04:50 98.6 F 72 18 96 11/03/18 04:42 98.6 F 69 97 11/03/18 04:40 98.6 F 70 10 L 96 11/03/18 04:30 98.6 F 71 11 L 96/56 L 95 11/03/18 04:20 98.6 F 74 12 95 11/03/18 04:10 98.6 F 72 11 L 95 11/03/18 04:00 98.6 F 72 13 102/52 L 95 Intake and Output (Last 8hrs): Intake & Output 11/02/18 11/03/18 11/03/18 22:59 06:59 14:59 Intake Total 5075 Output Total 250 Balance 4825 Intake: IV 4475 Right Forearm 4350 Oral 600 Output: Urine 250 Urethral (Kimble) 250 Other: # Bowel Movements 0 - Physical Exam Head: Positive for: Atraumatic, Normocephalic Pupils: Positive for: PERRL Extroacular Muscles: Positive for: EOMI Conjunctiva: Positive for: Normal Ears: Positive for: Normal, NORMAL TM Mouth: Positive for: Dry Pharnyx: Positive for: Normal. Negative for: ERYTHEMA, EXUDATE Nose (External): Positive for: Atraumatic Nose (Internal): Positive for: Normal Inspection, No Active Bleeding Neck: Positive for: Normal Range of Motion, Trachea Midline, Other (C7-T5 post- op scar noted, no crepitus or erythema, well healed). Negative for: Meningeal Signs, MIDLINE TENDERNESS, JVD, Bruit Respiratory/Chest: Positive for: Clear to Auscultation, Good Air Exchange. Negative for: Respiratory Distress, Accessory Muscle Use, Rales, Rhonchi Cardiovascular: Positive for: Regular Rate and Rhythm, Normal S1, S2. Negative for: Murmurs, Rub, Gallop Abdomen: Negative for: Tenderness, Distention, Peritoneal Signs Back: Positive for: Normal Inspection. Negative for: CVA Tenderness, Midline Tenderness Upper Extremity: Positive for: Normal Inspection, Normal ROM, NORMAL PULSES, Neurovascularly Intact. Negative for: Cyanosis, Edema Lower Extremity: Positive for: Normal Inspection, NORMAL PULSES, Neurovascularly Intact. Negative for: Edema, Temperature Abnormalties Neurological: Positive for: GCS=15, CN II-XII Intact, Speech Normal Skin: Positive for: Warm, Dry, Normal Color. Negative for: Rashes Psychiatric: Positive for: Alert, Oriented x 3, Normal Insight, Normal Concentration - Medications Active Medications: Active Medications Generic Name Dose Route Start Last Admin Trade Name Freq PRN Reason Stop Dose Admin Calcitriol 0.25 mcg 11/03/18 20:26 Rocaltrol PO 11/03/18 20:27 ONCE ONE Calcitriol 0.25 mcg 11/03/18 10:00 Rocaltrol PO 11/06/18 10:01 BID TEODORO Calcium Carbonate 600 mg 11/02/18 18:00 11/02/18 18:16 Caltrate PO 600 mg BID TEODORO Administration Al Hydrox/Mg Hydrox/ 0 ml 11/02/18 13:46 11/02/18 18:57 Simethicone 30 ml/ PO 15 isabel Diphenhydramine HCl 75 mg/ Q2H PRN Administration Lidocaine 30 ml Mouth/Throat Pain Heparin Sodium (Porcine) 5,000 units 11/02/18 14:00 11/03/18 06:06 Heparin SC 5,000 units Q8 TEODORO Administration Protocol NOREPINEPHRINE BIT/0.9 % NACL 4 mg in 250 mls @ 15 mls/hr 11/02/18 12:31 0 11/02/18 20:46 Levophed 4 Mg/ 250 Ml Ns Premixed IV 6 mcg/min .[id number] PRN 22.5 mls/hr TITRATE PER MD ORDER Titration Protocol 4 MCG/MIN Sodium Chloride 1,000 mls @ 250 mls/hr 11/02/18 18:45 11/03/18 03:17 Sodium Chloride 0.9% IV 250 mls/hr .Q4H TEODORO Administration Sevelamer HCl 800 mg 11/02/18 16:30 11/02/18 18:15 Renagel PO 800 mg AC TEODORO Administration Vitamin A 1 ea 11/02/18 13:45 11/02/18 13:50 Vitamin A & D Oint Ud Foilpak TOP 1 ea Q6 PRN Administration Apply to dry lips - Patient Studies Lab Studies: Lab Studies 11/03/18 11/03/18 11/03/18 Range/Units 05:30 05:30 05:30 WBC (4.5-11.0) 10^3/uL RBC (3.5-6.1) 10^6/uL Hgb (12.0-16.0) g/dL Hct (36.0-48.0) % MCV (80.0-105.0) fl MCH (25.0-35.0) pg MCHC (31.0-37.0) g/dl RDW (11.5-14.5) % Plt Count (120.0-450.0) 10^3/uL MPV (7.0-11.0) fl Neut % (Auto) (50.0-68.0) % Lymph % (Auto) (22.0-35.0) % [place] % (Auto) (1.0-6.0) % Eos % (Auto) (1.5-5.0) % Baso % (Auto) (0.0-3.0) % Lymph # (Auto) (1.2-3.4) [place] # (Auto) (0.1-0.6) Eos # (Auto) (0.0-0.7) Baso # (Auto) (0.0-2.0) K/mm3 Absolute Neuts (auto) (1.4-6.5) PT 16.5 H (9.4-12.5) SECONDS INR 1.46 APTT 35.5 (26.9-38.3) Seconds pO2 (30-55) mm/Hg VBG pH (7.32-7.43) VBG pCO2 (40-60) VBG HCO3 (21-28) mmol/l VBG Total CO2 (22-28) mmol.L VBG O2 Sat (Calc) (40-65) % VBG Base Excess (0.0-2.0) mmol/L VBG Potassium (3.6-5.2) mmol/L Sodium (132-148) mmol/L Chloride (98-107) mmol/L Glucose (65-105) mg/dl Lactate (0.7-2.1) mmol/L FiO2 % Crit Value Called To Crit Value Called By Blood Gas Notified Time Potassium (3.6-5.0) mmol/L Carbon Dioxide (21-33) mmol/L Anion Gap (10-20) BUN (7-21) mg/dL Creatinine (0.7-1.2) mg/dl Est GFR ( Amer) Est GFR (Non-Af Amer) Random Glucose (70-110) mg/dL Calcium (8.4-10.5) mg/dL Phosphorus (2.5-4.5) mg/dL Magnesium (1.7-2.2) mg/dL Total Bilirubin (0.2-1.3) mg/dL AST (14-36) U/L ALT (7-56) U/L Alkaline Phosphatase (38-126) U/L Total Creatine Kinase (35-230) U/L CK-MB (CK-2) (0.0-3.6) ng/mL CK-MB (CK-2) % (2.5-3.0) % Troponin I ng/mL Total Protein (5.8-8.3) g/dL Albumin (3.0-4.8) g/dL Globulin gm/dL Albumin/Globulin Ratio (1.1-1.8) LDL Cholesterol Direct 101 (0-129) mg/dL Amylase (35-125) U/L Lipase (23-300) U/L 25-OH Vitamin D Total (30.0-100.0) NG/ML TSH 3rd Generation 39.40 H (0.46-4.68) mIU/mL Venous Blood Potassium (3.6-5.2) mmol/L Urine Color (YELLOW) Urine Appearance (CLEAR) Urine pH (4.7-8.0) Ur Specific [place] (1.005-1.035) Urine Protein (<30 mg/dL) mg/dL Urine Glucose (UA) (NEGATIVE) mg/dL Urine Ketones (NEGATIVE) mg/dL Urine Blood (NEGATIVE) Urine Nitrate (NEGATIVE) Urine Bilirubin (NEGATIVE) Urine Urobilinogen (<1 E.U./dL) E.U./dL Ur Leukocyte Esterase (NEGATIVE) Kaye/uL Urine RBC (0-2) /hpf Urine WBC (0-6) /hpf Ur Epithelial Cells (0-5) /hpf Urine Bacteria (NONE) /hpf Urine Eosinophils Ur Random Creatinine mg/dL U Random Total Protein mg/L Ur Random Calcium mg/dL 11/03/18 11/03/18 11/02/18 Range/Units 05:30 01:08 21:26 WBC 3.9 L D (4.5-11.0) 10^3/uL RBC 2.75 L (3.5-6.1) 10^6/uL Hgb 10.1 L D (12.0-16.0) g/dL Hct 29.2 L (36.0-48.0) % MCV 106.2 H (80.0-105.0) fl MCH 36.7 H (25.0-35.0) pg MCHC 34.6 (31.0-37.0) g/dl RDW 15.0 H (11.5-14.5) % Plt Count 130 (120.0-450.0) 10^3/uL MPV 10.1 (7.0-11.0) fl Neut % (Auto) 71.4 H (50.0-68.0) % Lymph % (Auto) 21.6 L (22.0-35.0) % Kem[place] % (Auto) 6.2 H (1.0-6.0) % Eos % (Auto) 0.5 L (1.5-5.0) % Baso % (Auto) 0.3 (0.0-3.0) % Lymph # (Auto) 0.8 L (1.2-3.4) [place] # (Auto) 0.2 (0.1-0.6) Eos # (Auto) 0.0 (0.0-0.7) Baso # (Auto) 0.01 (0.0-2.0) K/mm3 Absolute Neuts (auto) 2.78 (1.4-6.5) PT (9.4-12.5) SECONDS INR APTT (26.9-38.3) Seconds pO2 (30-55) mm/Hg VBG pH (7.32-7.43) VBG pCO2 (40-60) VBG HCO3 (21-28) mmol/l VBG Total CO2 (22-28) mmol.L VBG O2 Sat (Calc) (40-65) % VBG Base Excess (0.0-2.0) mmol/L VBG Potassium (3.6-5.2) mmol/L Sodium 132 131 L (132-148) mmol/L Chloride 100 96 L (98-107) mmol/L Glucose (65-105) mg/dl Lactate (0.7-2.1) mmol/L FiO2 % Crit Value Called To Crit Value Called By Blood Gas Notified Time Potassium 3.6 2.6 L* (3.6-5.0) mmol/L Carbon Dioxide 18 L 19 L (21-33) mmol/L Anion Gap 18 18 (10-20) BUN 62 H 67 H (7-21) mg/dL Creatinine 8.0 H* 8.9 H* (0.7-1.2) mg/dl Est GFR ( Amer) 6 5 Est GFR (Non-Af Amer) 5 4 Random Glucose 93 80 (70-110) mg/dL Calcium 4.5 L* 4.2 L* (8.4-10.5) mg/dL Phosphorus 8.1 H 9.2 H (2.5-4.5) mg/dL Magnesium 2.3 H 1.4 L (1.7-2.2) mg/dL Total Bilirubin (0.2-1.3) mg/dL AST (14-36) U/L ALT (7-56) U/L Alkaline Phosphatase (38-126) U/L Total Creatine Kinase (35-230) U/L CK-MB (CK-2) (0.0-3.6) ng/mL CK-MB (CK-2) % (2.5-3.0) % Troponin I 0.17 H* 0.19 H* ng/mL Total Protein (5.8-8.3) g/dL Albumin (3.0-4.8) g/dL Globulin gm/dL Albumin/Globulin Ratio (1.1-1.8) LDL Cholesterol Direct (0-129) mg/dL Amylase 92 (35-125) U/L Lipase 511 H (23-300) U/L 25-OH Vitamin D Total (30.0-100.0) NG/ML TSH 3rd Generation (0.46-4.68) mIU/mL Venous Blood Potassium (3.6-5.2) mmol/L Urine Color (YELLOW) Urine Appearance (CLEAR) Urine pH (4.7-8.0) Ur Specific [place] (1.005-1.035) Urine Protein (<30 mg/dL) mg/dL Urine Glucose (UA) (NEGATIVE) mg/dL Urine Ketones (NEGATIVE) mg/dL Urine Blood (NEGATIVE) Urine Nitrate (NEGATIVE) Urine Bilirubin (NEGATIVE) Urine Urobilinogen (<1 E.U./dL) E.U./dL Ur Leukocyte Esterase (NEGATIVE) Kaye/uL Urine RBC (0-2) /hpf Urine WBC (0-6) /hpf Ur Epithelial Cells (0-5) /hpf Urine Bacteria (NONE) /hpf Urine Eosinophils Ur Random Creatinine mg/dL U Random Total Protein mg/L Ur Random Calcium mg/dL 11/02/18 11/02/18 11/02/18 Range/Units 16:00 16:00 14:00 WBC (4.5-11.0) 10^3/uL RBC (3.5-6.1) 10^6/uL Hgb (12.0-16.0) g/dL Hct (36.0-48.0) % MCV (80.0-105.0) fl MCH (25.0-35.0) pg MCHC (31.0-37.0) g/dl RDW (11.5-14.5) % Plt Count (120.0-450.0) 10^3/uL MPV (7.0-11.0) fl Neut % (Auto) (50.0-68.0) % Lymph % (Auto) (22.0-35.0) % [place] % (Auto) (1.0-6.0) % Eos % (Auto) (1.5-5.0) % Baso % (Auto) (0.0-3.0) % Lymph # (Auto) (1.2-3.4) [place] # (Auto) (0.1-0.6) Eos # (Auto) (0.0-0.7) Baso # (Auto) (0.0-2.0) K/mm3 Absolute Neuts (auto) (1.4-6.5) PT (9.4-12.5) SECONDS INR APTT (26.9-38.3) Seconds pO2 (30-55) mm/Hg VBG pH (7.32-7.43) VBG pCO2 (40-60) VBG HCO3 (21-28) mmol/l VBG Total CO2 (22-28) mmol.L VBG O2 Sat (Calc) (40-65) % VBG Base Excess (0.0-2.0) mmol/L VBG Potassium (3.6-5.2) mmol/L Sodium 131 L (132-148) mmol/L Chloride 94 L (98-107) mmol/L Glucose (65-105) mg/dl Lactate (0.7-2.1) mmol/L FiO2 % Crit Value Called To Crit Value Called By Blood Gas Notified Time Potassium 3.0 L (3.6-5.0) mmol/L Carbon Dioxide 13 L (21-33) mmol/L Anion Gap 27 H (10-20) BUN 72 H (7-21) mg/dL Creatinine 10.5 H* (0.7-1.2) mg/dl Est GFR ( Amer) 4 Est GFR (Non-Af Amer) 4 Random Glucose 166 H (70-110) mg/dL Calcium 4.2 L* (8.4-10.5) mg/dL Phosphorus 13.8 H (2.5-4.5) mg/dL Magnesium 1.8 (1.7-2.2) mg/dL Total Bilirubin (0.2-1.3) mg/dL AST (14-36) U/L ALT (7-56) U/L Alkaline Phosphatase (38-126) U/L Total Creatine Kinase 9379 H (35-230) U/L CK-MB (CK-2) 13.3 H (0.0-3.6) ng/mL CK-MB (CK-2) % 0.1 L (2.5-3.0) % Troponin I 0.20 H* ng/mL Total Protein (5.8-8.3) g/dL Albumin (3.0-4.8) g/dL Globulin gm/dL Albumin/Globulin Ratio (1.1-1.8) LDL Cholesterol Direct (0-129) mg/dL Amylase (35-125) U/L Lipase (23-300) U/L 25-OH Vitamin D Total (30.0-100.0) NG/ML TSH 3rd Generation (0.46-4.68) mIU/mL Venous Blood Potassium (3.6-5.2) mmol/L Urine Color (YELLOW) Urine Appearance (CLEAR) Urine pH (4.7-8.0) Ur Specific [place] (1.005-1.035) Urine Protein (<30 mg/dL) mg/dL Urine Glucose (UA) (NEGATIVE) mg/dL Urine Ketones (NEGATIVE) mg/dL Urine Blood (NEGATIVE) Urine Nitrate (NEGATIVE) Urine Bilirubin (NEGATIVE) Urine Urobilinogen (<1 E.U./dL) E.U./dL Ur Leukocyte Esterase (NEGATIVE) Kaye/uL Urine RBC (0-2) /hpf Urine WBC (0-6) /hpf Ur Epithelial Cells (0-5) /hpf Urine Bacteria (NONE) /hpf Urine Eosinophils Negative Ur Random Creatinine mg/dL U Random Total Protein mg/L Ur Random Calcium mg/dL 11/02/18 11/02/18 11/02/18 Range/Units 13:30 13:30 13:30 WBC (4.5-11.0) 10^3/uL RBC (3.5-6.1) 10^6/uL Hgb (12.0-16.0) g/dL Hct (36.0-48.0) % MCV (80.0-105.0) fl MCH (25.0-35.0) pg MCHC (31.0-37.0) g/dl RDW (11.5-14.5) % Plt Count (120.0-450.0) 10^3/uL MPV (7.0-11.0) fl Neut % (Auto) (50.0-68.0) % Lymph % (Auto) (22.0-35.0) % [place] % (Auto) (1.0-6.0) % Eos % (Auto) (1.5-5.0) % Baso % (Auto) (0.0-3.0) % Lymph # (Auto) (1.2-3.4) [place] # (Auto) (0.1-0.6) Eos # (Auto) (0.0-0.7) Baso # (Auto) (0.0-2.0) K/mm3 Absolute Neuts (auto) (1.4-6.5) PT (9.4-12.5) SECONDS INR APTT (26.9-38.3) Seconds pO2 (30-55) mm/Hg VBG pH (7.32-7.43) VBG pCO2 (40-60) VBG HCO3 (21-28) mmol/l VBG Total CO2 (22-28) mmol.L VBG O2 Sat (Calc) (40-65) % VBG Base Excess (0.0-2.0) mmol/L VBG Potassium (3.6-5.2) mmol/L Sodium (132-148) mmol/L Chloride (98-107) mmol/L Glucose (65-105) mg/dl Lactate (0.7-2.1) mmol/L FiO2 % Crit Value Called To Crit Value Called By Blood Gas Notified Time Potassium (3.6-5.0) mmol/L Carbon Dioxide (21-33) mmol/L Anion Gap (10-20) BUN (7-21) mg/dL Creatinine (0.7-1.2) mg/dl Est GFR ( Amer) Est GFR (Non-Af Amer) Random Glucose (70-110) mg/dL Calcium (8.4-10.5) mg/dL Phosphorus (2.5-4.5) mg/dL Magnesium (1.7-2.2) mg/dL Total Bilirubin (0.2-1.3) mg/dL AST (14-36) U/L ALT (7-56) U/L Alkaline Phosphatase (38-126) U/L Total Creatine Kinase (35-230) U/L CK-MB (CK-2) (0.0-3.6) ng/mL CK-MB (CK-2) % (2.5-3.0) % Troponin I ng/mL Total Protein (5.8-8.3) g/dL Albumin (3.0-4.8) g/dL Globulin gm/dL Albumin/Globulin Ratio (1.1-1.8) LDL Cholesterol Direct (0-129) mg/dL Amylase (35-125) U/L Lipase (23-300) U/L 25-OH Vitamin D Total (30.0-100.0) NG/ML TSH 3rd Generation (0.46-4.68) mIU/mL Venous Blood Potassium (3.6-5.2) mmol/L Urine Color Yellow (YELLOW) Urine Appearance Sl cloudy (CLEAR) Urine pH 5.5 (4.7-8.0) Ur Specific [place] 1.025 (1.005-1.035) Urine Protein 100 H (<30 mg/dL) mg/dL Urine Glucose (UA) Negative (NEGATIVE) mg/dL Urine Ketones Negative (NEGATIVE) mg/dL Urine Blood Moderate H (NEGATIVE) Urine Nitrate Negative (NEGATIVE) Urine Bilirubin Negative (NEGATIVE) Urine Urobilinogen 0.2 (<1 E.U./dL) E.U./dL Ur Leukocyte Esterase Negative (NEGATIVE) Kaye/uL Urine RBC 5 - 10 H (0-2) /hpf Urine WBC 5 - 10 H (0-6) /hpf Ur Epithelial Cells 4 - 5 (0-5) /hpf Urine Bacteria Mod (NONE) /hpf Urine Eosinophils Ur Random Creatinine mg/dL U Random Total Protein 81 mg/L Ur Random Calcium < 1.0 mg/dL 11/02/18 11/02/18 11/02/18 Range/Units 12:30 12:15 12:15 WBC (4.5-11.0) 10^3/uL RBC (3.5-6.1) 10^6/uL Hgb (12.0-16.0) g/dL Hct (36.0-48.0) % MCV (80.0-105.0) fl MCH (25.0-35.0) pg MCHC (31.0-37.0) g/dl RDW (11.5-14.5) % Plt Count (120.0-450.0) 10^3/uL MPV (7.0-11.0) fl Neut % (Auto) (50.0-68.0) % Lymph % (Auto) (22.0-35.0) % [place] % (Auto) (1.0-6.0) % Eos % (Auto) (1.5-5.0) % Baso % (Auto) (0.0-3.0) % Lymph # (Auto) (1.2-3.4) [place] # (Auto) (0.1-0.6) Eos # (Auto) (0.0-0.7) Baso # (Auto) (0.0-2.0) K/mm3 Absolute Neuts (auto) (1.4-6.5) PT (9.4-12.5) SECONDS INR APTT (26.9-38.3) Seconds pO2 31 (30-55) mm/Hg VBG pH 7.26 L (7.32-7.43) VBG pCO2 35.0 L (40-60) VBG HCO3 15.7 L (21-28) mmol/l VBG Total CO2 16.8 L (22-28) mmol.L VBG O2 Sat (Calc) 49.9 (40-65) % VBG Base Excess -10.4 L (0.0-2.0) mmol/L VBG Potassium 3.5 L (3.6-5.2) mmol/L Sodium 133 134.0 (132-148) mmol/L Chloride 93 L 95.0 L (98-107) mmol/L Glucose 82 (65-105) mg/dl Lactate 1.4 (0.7-2.1) mmol/L FiO2 21.0 % Crit Value Called To Crit Value Called By Blood Gas Notified Time Potassium 3.5 L (3.6-5.0) mmol/L Carbon Dioxide 16 L (21-33) mmol/L Anion Gap 27 H (10-20) BUN 72 H (7-21) mg/dL Creatinine 11.0 H* (0.7-1.2) mg/dl Est GFR ( Amer) 4 Est GFR (Non-Af Amer) 3 Random Glucose 79 (70-110) mg/dL Calcium 4.3 L* (8.4-10.5) mg/dL Phosphorus 16.1 H (2.5-4.5) mg/dL Magnesium 1.1 L (1.7-2.2) mg/dL Total Bilirubin (0.2-1.3) mg/dL AST (14-36) U/L ALT (7-56) U/L Alkaline Phosphatase (38-126) U/L Total Creatine Kinase (35-230) U/L CK-MB (CK-2) (0.0-3.6) ng/mL CK-MB (CK-2) % (2.5-3.0) % Troponin I 0.25 H* ng/mL Total Protein (5.8-8.3) g/dL Albumin (3.0-4.8) g/dL Globulin gm/dL Albumin/Globulin Ratio (1.1-1.8) LDL Cholesterol Direct (0-129) mg/dL Amylase (35-125) U/L Lipase (23-300) U/L 25-OH Vitamin D Total 28.1 L (30.0-100.0) NG/ML TSH 3rd Generation (0.46-4.68) mIU/mL Venous Blood Potassium 3.5 L (3.6-5.2) mmol/L Urine Color (YELLOW) Urine Appearance (CLEAR) Urine pH (4.7-8.0) Ur Specific [place] (1.005-1.035) Urine Protein (<30 mg/dL) mg/dL Urine Glucose (UA) (NEGATIVE) mg/dL Urine Ketones (NEGATIVE) mg/dL Urine Blood (NEGATIVE) Urine Nitrate (NEGATIVE) Urine Bilirubin (NEGATIVE) Urine Urobilinogen (<1 E.U./dL) E.U./dL Ur Leukocyte Esterase (NEGATIVE) Kaye/uL Urine RBC (0-2) /hpf Urine WBC (0-6) /hpf Ur Epithelial Cells (0-5) /hpf Urine Bacteria (NONE) /hpf Urine Eosinophils Ur Random Creatinine mg/dL U Random Total Protein mg/L Ur Random Calcium mg/dL 11/02/18 11/02/18 11/02/18 Range/Units 10:54 07:58 07:58 WBC (4.5-11.0) 10^3/uL RBC (3.5-6.1) 10^6/uL Hgb (12.0-16.0) g/dL Hct (36.0-48.0) % MCV (80.0-105.0) fl MCH (25.0-35.0) pg MCHC (31.0-37.0) g/dl RDW (11.5-14.5) % Plt Count (120.0-450.0) 10^3/uL MPV (7.0-11.0) fl Neut % (Auto) (50.0-68.0) % Lymph % (Auto) (22.0-35.0) % [place] % (Auto) (1.0-6.0) % Eos % (Auto) (1.5-5.0) % Baso % (Auto) (0.0-3.0) % Lymph # (Auto) (1.2-3.4) [place] # (Auto) (0.1-0.6) Eos # (Auto) (0.0-0.7) Baso # (Auto) (0.0-2.0) K/mm3 Absolute Neuts (auto) (1.4-6.5) PT (9.4-12.5) SECONDS INR APTT (26.9-38.3) Seconds pO2 68 H (30-55) mm/Hg VBG pH 7.19 L* (7.32-7.43) VBG pCO2 40.0 (40-60) VBG HCO3 15.3 L (21-28) mmol/l VBG Total CO2 16.5 L (22-28) mmol.L VBG O2 Sat (Calc) 89.7 H (40-65) % VBG Base Excess -12.3 L (0.0-2.0) mmol/L VBG Potassium 3.3 L (3.6-5.2) mmol/L Sodium 138 131.0 L (132-148) mmol/L Chloride 99 91.0 L (98-107) mmol/L Glucose 95 (65-105) mg/dl Lactate 2.3 H (0.7-2.1) mmol/L FiO2 21.0 % Crit Value Called To Sugar hyde Crit Value Called By Carol Blood Gas Notified Time 823 Potassium 3.3 L (3.6-5.0) mmol/L Carbon Dioxide 14 L (21-33) mmol/L Anion Gap 28 H (10-20) BUN 64 H (7-21) mg/dL Creatinine 10.0 H* (0.7-1.2) mg/dl Est GFR ( Amer) 5 Est GFR (Non-Af Amer) 4 Random Glucose 83 (70-110) mg/dL Calcium 4.0 L* (8.4-10.5) mg/dL Phosphorus (2.5-4.5) mg/dL Magnesium (1.7-2.2) mg/dL Total Bilirubin 0.6 (0.2-1.3) mg/dL AST 113 H (14-36) U/L ALT 108 H (7-56) U/L Alkaline Phosphatase 74 (38-126) U/L Total Creatine Kinase (35-230) U/L CK-MB (CK-2) (0.0-3.6) ng/mL CK-MB (CK-2) % (2.5-3.0) % Troponin I 0.27 H* ng/mL Total Protein 5.4 L (5.8-8.3) g/dL Albumin 3.8 (3.0-4.8) g/dL Globulin 2.4 gm/dL Albumin/Globulin Ratio 1.6 (1.1-1.8) LDL Cholesterol Direct (0-129) mg/dL Amylase (35-125) U/L Lipase (23-300) U/L 25-OH Vitamin D Total (30.0-100.0) NG/ML TSH 3rd Generation (0.46-4.68) mIU/mL Venous Blood Potassium 3.3 L (3.6-5.2) mmol/L Urine Color (YELLOW) Urine Appearance (CLEAR) Urine pH (4.7-8.0) Ur Specific [place] (1.005-1.035) Urine Protein (<30 mg/dL) mg/dL Urine Glucose (UA) (NEGATIVE) mg/dL Urine Ketones (NEGATIVE) mg/dL Urine Blood (NEGATIVE) Urine Nitrate (NEGATIVE) Urine Bilirubin (NEGATIVE) Urine Urobilinogen (<1 E.U./dL) E.U./dL Ur Leukocyte Esterase (NEGATIVE) Kaye/uL Urine RBC (0-2) /hpf Urine WBC (0-6) /hpf Ur Epithelial Cells (0-5) /hpf Urine Bacteria (NONE) /hpf Urine Eosinophils Ur Random Creatinine 220 mg/dL U Random Total Protein mg/L Ur Random Calcium mg/dL 11/02/18 Range/Units 07:58 WBC 6.6 (4.5-11.0) 10^3/uL RBC 3.46 L (3.5-6.1) 10^6/uL Hgb 12.8 (12.0-16.0) g/dL Hct 36.7 (36.0-48.0) % MCV 106.1 H (80.0-105.0) fl MCH 37.0 H (25.0-35.0) pg MCHC 34.9 (31.0-37.0) g/dl RDW 15.1 H (11.5-14.5) % Plt Count 130 (120.0-450.0) 10^3/uL MPV 10.1 (7.0-11.0) fl Neut % (Auto) 80.4 H (50.0-68.0) % Lymph % (Auto) 14.8 L (22.0-35.0) % [place] % (Auto) 4.1 (1.0-6.0) % Eos % (Auto) 0.5 L (1.5-5.0) % Baso % (Auto) 0.2 (0.0-3.0) % Lymph # (Auto) 1.0 L (1.2-3.4) [place] # (Auto) 0.3 (0.1-0.6) Eos # (Auto) 0.0 (0.0-0.7) Baso # (Auto) 0.01 (0.0-2.0) K/mm3 Absolute Neuts (auto) 5.35 (1.4-6.5) PT (9.4-12.5) SECONDS INR APTT (26.9-38.3) Seconds pO2 (30-55) mm/Hg VBG pH (7.32-7.43) VBG pCO2 (40-60) VBG HCO3 (21-28) mmol/l VBG Total CO2 (22-28) mmol.L VBG O2 Sat (Calc) (40-65) % VBG Base Excess (0.0-2.0) mmol/L VBG Potassium (3.6-5.2) mmol/L Sodium (132-148) mmol/L Chloride (98-107) mmol/L Glucose (65-105) mg/dl Lactate (0.7-2.1) mmol/L FiO2 % Crit Value Called To Crit Value Called By Blood Gas Notified Time Potassium (3.6-5.0) mmol/L Carbon Dioxide (21-33) mmol/L Anion Gap (10-20) BUN (7-21) mg/dL Creatinine (0.7-1.2) mg/dl Est GFR ( Amer) Est GFR (Non-Af Amer) Random Glucose (70-110) mg/dL Calcium (8.4-10.5) mg/dL Phosphorus (2.5-4.5) mg/dL Magnesium (1.7-2.2) mg/dL Total Bilirubin (0.2-1.3) mg/dL AST (14-36) U/L ALT (7-56) U/L Alkaline Phosphatase (38-126) U/L Total Creatine Kinase (35-230) U/L CK-MB (CK-2) (0.0-3.6) ng/mL CK-MB (CK-2) % (2.5-3.0) % Troponin I ng/mL Total Protein (5.8-8.3) g/dL Albumin (3.0-4.8) g/dL Globulin gm/dL Albumin/Globulin Ratio (1.1-1.8) LDL Cholesterol Direct (0-129) mg/dL Amylase (35-125) U/L Lipase (23-300) U/L 25-OH Vitamin D Total (30.0-100.0) NG/ML TSH 3rd Generation (0.46-4.68) mIU/mL Venous Blood Potassium (3.6-5.2) mmol/L Urine Color (YELLOW) Urine Appearance (CLEAR) Urine pH (4.7-8.0) Ur Specific [place] (1.005-1.035) Urine Protein (<30 mg/dL) mg/dL Urine Glucose (UA) (NEGATIVE) mg/dL Urine Ketones (NEGATIVE) mg/dL Urine Blood (NEGATIVE) Urine Nitrate (NEGATIVE) Urine Bilirubin (NEGATIVE) Urine Urobilinogen (<1 E.U./dL) E.U./dL Ur Leukocyte Esterase (NEGATIVE) Kaye/uL Urine RBC (0-2) /hpf Urine WBC (0-6) /hpf Ur Epithelial Cells (0-5) /hpf Urine Bacteria (NONE) /hpf Urine Eosinophils Ur Random Creatinine mg/dL U Random Total Protein mg/L Ur Random Calcium mg/dL Laboratory Results - last 24 hr 11/02/18 11/02/18 11/02/18 07:58 07:58 07:58 WBC 6.6 RBC 3.46 L Hgb 12.8 Hct 36.7 MCV 106.1 H MCH 37.0 H MCHC 34.9 RDW 15.1 H Plt Count 130 MPV 10.1 Neut % (Auto) 80.4 H Lymph % (Auto) 14.8 L [place] % (Auto) 4.1 Eos % (Auto) 0.5 L Baso % (Auto) 0.2 Lymph # (Auto) 1.0 L [place] # (Auto) 0.3 Eos # (Auto) 0.0 Baso # (Auto) 0.01 Absolute Neuts (auto) 5.35 PT INR APTT pO2 68 H VBG pH 7.19 L* VBG pCO2 40.0 VBG HCO3 15.3 L VBG Total CO2 16.5 L VBG O2 Sat (Calc) 89.7 H VBG Base Excess -12.3 L VBG Potassium 3.3 L Sodium 131.0 L 138 Chloride 91.0 L 99 Glucose 95 Lactate 2.3 H FiO2 21.0 Crit Value Called To Sugar hyde Crit Value Called By Carlo Blood Gas Notified Time 823 Potassium 3.3 L Carbon Dioxide 14 L Anion Gap 28 H BUN 64 H Creatinine 10.0 H* Est GFR ( Amer) 5 Est GFR (Non-Af Amer) 4 Random Glucose 83 Calcium 4.0 L* Phosphorus Magnesium Total Bilirubin 0.6 AST 113 H ALT 108 H Alkaline Phosphatase 74 Total Creatine Kinase CK-MB (CK-2) CK-MB (CK-2) % Troponin I 0.27 H* Total Protein 5.4 L Albumin 3.8 Globulin 2.4 Albumin/Globulin Ratio 1.6 LDL Cholesterol Direct Amylase Lipase 25-OH Vitamin D Total TSH 3rd Generation Venous Blood Potassium 3.3 L Urine Color Urine Appearance Urine pH Ur Specific [place] Urine Protein Urine Glucose (UA) Urine Ketones Urine Blood Urine Nitrate Urine Bilirubin Urine Urobilinogen Ur Leukocyte Esterase Urine RBC Urine WBC Ur Epithelial Cells Urine Bacteria Urine Eosinophils Ur Random Creatinine U Random Total Protein Ur Random Calcium 11/02/18 11/02/18 11/02/18 10:54 12:15 12:15 WBC RBC Hgb Hct MCV MCH MCHC RDW Plt Count MPV Neut % (Auto) Lymph % (Auto) [place] % (Auto) Eos % (Auto) Baso % (Auto) Lymph # (Auto) [place] # (Auto) Eos # (Auto) Baso # (Auto) Absolute Neuts (auto) PT INR APTT pO2 31 VBG pH 7.26 L VBG pCO2 35.0 L VBG HCO3 15.7 L VBG Total CO2 16.8 L VBG O2 Sat (Calc) 49.9 VBG Base Excess -10.4 L VBG Potassium 3.5 L Sodium 134.0 Chloride 95.0 L Glucose 82 Lactate 1.4 FiO2 21.0 Crit Value Called To Crit Value Called By Blood Gas Notified Time Potassium Carbon Dioxide Anion Gap BUN Creatinine Est GFR ( Amer) Est GFR (Non-Af Amer) Random Glucose Calcium Phosphorus Magnesium Total Bilirubin AST ALT Alkaline Phosphatase Total Creatine Kinase CK-MB (CK-2) CK-MB (CK-2) % Troponin I Total Protein Albumin Globulin Albumin/Globulin Ratio LDL Cholesterol Direct Amylase Lipase 25-OH Vitamin D Total 28.1 L TSH 3rd Generation Venous Blood Potassium 3.5 L Urine Color Urine Appearance Urine pH Ur Specific [place] Urine Protein Urine Glucose (UA) Urine Ketones Urine Blood Urine Nitrate Urine Bilirubin Urine Urobilinogen Ur Leukocyte Esterase Urine RBC Urine WBC Ur Epithelial Cells Urine Bacteria Urine Eosinophils Ur Random Creatinine 220 U Random Total Protein Ur Random Calcium 11/02/18 11/02/18 11/02/18 12:30 13:30 13:30 WBC RBC Hgb Hct MCV MCH MCHC RDW Plt Count MPV Neut % (Auto) Lymph % (Auto) [place] % (Auto) Eos % (Auto) Baso % (Auto) Lymph # (Auto) [place] # (Auto) Eos # (Auto) Baso # (Auto) Absolute Neuts (auto) PT INR APTT pO2 VBG pH VBG pCO2 VBG HCO3 VBG Total CO2 VBG O2 Sat (Calc) VBG Base Excess VBG Potassium Sodium 133 Chloride 93 L Glucose Lactate FiO2 Crit Value Called To Crit Value Called By Blood Gas Notified Time Potassium 3.5 L Carbon Dioxide 16 L Anion Gap 27 H BUN 72 H Creatinine 11.0 H* Est GFR ( Amer) 4 Est GFR (Non-Af Amer) 3 Random Glucose 79 Calcium 4.3 L* Phosphorus 16.1 H Magnesium 1.1 L Total Bilirubin AST ALT Alkaline Phosphatase Total Creatine Kinase CK-MB (CK-2) CK-MB (CK-2) % Troponin I 0.25 H* Total Protein Albumin Globulin Albumin/Globulin Ratio LDL Cholesterol Direct Amylase Lipase 25-OH Vitamin D Total TSH 3rd Generation Venous Blood Potassium Urine Color Yellow Urine Appearance Sl cloudy Urine pH 5.5 Ur Specific [place] 1.025 Urine Protein 100 H Urine Glucose (UA) Negative Urine Ketones Negative Urine Blood Moderate H Urine Nitrate Negative Urine Bilirubin Negative Urine Urobilinogen 0.2 Ur Leukocyte Esterase Negative Urine RBC 5 - 10 H Urine WBC 5 - 10 H Ur Epithelial Cells 4 - 5 Urine Bacteria Mod Urine Eosinophils Ur Random Creatinine U Random Total Protein 81 Ur Random Calcium 11/02/18 11/02/18 11/02/18 13:30 14:00 16:00 WBC RBC Hgb Hct MCV MCH MCHC RDW Plt Count MPV Neut % (Auto) Lymph % (Auto) [place] % (Auto) Eos % (Auto) Baso % (Auto) Lymph # (Auto) [place] # (Auto) Eos # (Auto) Baso # (Auto) Absolute Neuts (auto) PT INR APTT pO2 VBG pH VBG pCO2 VBG HCO3 VBG Total CO2 VBG O2 Sat (Calc) VBG Base Excess VBG Potassium Sodium 131 L Chloride 94 L Glucose Lactate FiO2 Crit Value Called To Crit Value Called By Blood Gas Notified Time Potassium 3.0 L Carbon Dioxide 13 L Anion Gap 27 H BUN 72 H Creatinine 10.5 H* Est GFR ( Amer) 4 Est GFR (Non-Af Amer) 4 Random Glucose 166 H Calcium 4.2 L* Phosphorus 13.8 H Magnesium 1.8 Total Bilirubin AST ALT Alkaline Phosphatase Total Creatine Kinase CK-MB (CK-2) CK-MB (CK-2) % Troponin I 0.20 H* Total Protein Albumin Globulin Albumin/Globulin Ratio LDL Cholesterol Direct Amylase Lipase 25-OH Vitamin D Total TSH 3rd Generation Venous Blood Potassium Urine Color Urine Appearance Urine pH Ur Specific [place] Urine Protein Urine Glucose (UA) Urine Ketones Urine Blood Urine Nitrate Urine Bilirubin Urine Urobilinogen Ur Leukocyte Esterase Urine RBC Urine WBC Ur Epithelial Cells Urine Bacteria Urine Eosinophils Negative Ur Random Creatinine U Random Total Protein Ur Random Calcium < 1.0 11/02/18 11/02/18 11/03/18 16:00 21:26 01:08 WBC RBC Hgb Hct MCV MCH MCHC RDW Plt Count MPV Neut % (Auto) Lymph % (Auto) [place] % (Auto) Eos % (Auto) Baso % (Auto) Lymph # (Auto) [place] # (Auto) Eos # (Auto) Baso # (Auto) Absolute Neuts (auto) PT INR APTT pO2 VBG pH VBG pCO2 VBG HCO3 VBG Total CO2 VBG O2 Sat (Calc) VBG Base Excess VBG Potassium Sodium 131 L 132 Chloride 96 L 100 Glucose Lactate FiO2 Crit Value Called To Crit Value Called By Blood Gas Notified Time Potassium 2.6 L* 3.6 Carbon Dioxide 19 L 18 L Anion Gap 18 18 BUN 67 H 62 H Creatinine 8.9 H* 8.0 H* Est GFR ( Amer) 5 6 Est GFR (Non-Af Amer) 4 5 Random Glucose 80 93 Calcium 4.2 L* 4.5 L* Phosphorus 9.2 H 8.1 H Magnesium 1.4 L 2.3 H Total Bilirubin AST ALT Alkaline Phosphatase Total Creatine Kinase 9379 H CK-MB (CK-2) 13.3 H CK-MB (CK-2) % 0.1 L Troponin I 0.19 H* 0.17 H* Total Protein Albumin Globulin Albumin/Globulin Ratio LDL Cholesterol Direct Amylase 92 Lipase 511 H 25-OH Vitamin D Total TSH 3rd Generation Venous Blood Potassium Urine Color Urine Appearance Urine pH Ur Specific [place] Urine Protein Urine Glucose (UA) Urine Ketones Urine Blood Urine Nitrate Urine Bilirubin Urine Urobilinogen Ur Leukocyte Esterase Urine RBC Urine WBC Ur Epithelial Cells Urine Bacteria Urine Eosinophils Ur Random Creatinine U Random Total Protein Ur Random Calcium 11/03/18 11/03/18 11/03/18 05:30 05:30 05:30 WBC 3.9 L D RBC 2.75 L Hgb 10.1 L D Hct 29.2 L MCV 106.2 H MCH 36.7 H MCHC 34.6 RDW 15.0 H Plt Count 130 MPV 10.1 Neut % (Auto) 71.4 H Lymph % (Auto) 21.6 L Kem[place] % (Auto) 6.2 H Eos % (Auto) 0.5 L Baso % (Auto) 0.3 Lymph # (Auto) 0.8 L [place] # (Auto) 0.2 Eos # (Auto) 0.0 Baso # (Auto) 0.01 Absolute Neuts (auto) 2.78 PT INR APTT pO2 VBG pH VBG pCO2 VBG HCO3 VBG Total CO2 VBG O2 Sat (Calc) VBG Base Excess VBG Potassium Sodium Chloride Glucose Lactate FiO2 Crit Value Called To Crit Value Called By Blood Gas Notified Time Potassium Carbon Dioxide Anion Gap BUN Creatinine Est GFR ( Amer) Est GFR (Non-Af Amer) Random Glucose Calcium Phosphorus Magnesium Total Bilirubin AST ALT Alkaline Phosphatase Total Creatine Kinase CK-MB (CK-2) CK-MB (CK-2) % Troponin I Total Protein Albumin Globulin Albumin/Globulin Ratio LDL Cholesterol Direct 101 Amylase Lipase 25-OH Vitamin D Total TSH 3rd Generation 39.40 H Venous Blood Potassium Urine Color Urine Appearance Urine pH Ur Specific [place] Urine Protein Urine Glucose (UA) Urine Ketones Urine Blood Urine Nitrate Urine Bilirubin Urine Urobilinogen Ur Leukocyte Esterase Urine RBC Urine WBC Ur Epithelial Cells Urine Bacteria Urine Eosinophils Ur Random Creatinine U Random Total Protein Ur Random Calcium 11/03/18 05:30 WBC RBC Hgb Hct MCV MCH MCHC RDW Plt Count MPV Neut % (Auto) Lymph % (Auto) [place] % (Auto) Eos % (Auto) Baso % (Auto) Lymph # (Auto) [place] # (Auto) Eos # (Auto) Baso # (Auto) Absolute Neuts (auto) PT 16.5 H INR 1.46 APTT 35.5 pO2 VBG pH VBG pCO2 VBG HCO3 VBG Total CO2 VBG O2 Sat (Calc) VBG Base Excess VBG Potassium Sodium Chloride Glucose Lactate FiO2 Crit Value Called To Crit Value Called By Blood Gas Notified Time Potassium Carbon Dioxide Anion Gap BUN Creatinine Est GFR ( Amer) Est GFR (Non-Af Amer) Random Glucose Calcium Phosphorus Magnesium Total Bilirubin AST ALT Alkaline Phosphatase Total Creatine Kinase CK-MB (CK-2) CK-MB (CK-2) % Troponin I Total Protein Albumin Globulin Albumin/Globulin Ratio LDL Cholesterol Direct Amylase Lipase 25-OH Vitamin D Total TSH 3rd Generation Venous Blood Potassium Urine Color Urine Appearance Urine pH Ur Specific [place] Urine Protein Urine Glucose (UA) Urine Ketones Urine Blood Urine Nitrate Urine Bilirubin Urine Urobilinogen Ur Leukocyte Esterase Urine RBC Urine WBC Ur Epithelial Cells Urine Bacteria Urine Eosinophils Ur Random Creatinine U Random Total Protein Ur Random Calcium Radiology Impressions: Radiology Impressions Chest X-Ray 11/02/18 07:37 IMPRESSION: No active disease. Renal Ultrasound 11/02/18 13:55 IMPRESSION: Status post left nephrectomy. Unremarkable right renal sonogram. EKG/Cardiology Studies: Cardiology / EKG Studies 11/02/18 07:37 ELECTROCARDIOGRAM Stat Comment: Reason For Exam: weak 11/03/18 06:00 EKG [ELECTROCARDIOGRAM] Routine Comment: Reason For Exam: prolonged QT Critical Care Progress Note - Nutrition Nutrition: Nutrition Category Date Time Status Heart Healthy Diet [DIET] Diets 11/02/18 Dinner Active Assessment/Plan - Assessment and Plan (Free Text) Assessment: 68 yo F with PMH of renal cell carcinoma (s/p L nephrectomy and spinal tumor resection, last chemo 3 days ago), HTN, and HLD admitted to MICU for management of acute renal failure, severe hypocalcemia with EKG changes, and positive troponin. Plan: Neuro: AAOx3, no focal deficit, moving extremities past midline, able to protect airway Reorient as necessary Cardio: Patient continues to require pressor support despite IVF resuscitation Etiology of shock remains unclear, will get TTE to r/o cardiogenic etiology Repeat EKG this AM shows improvement of prolonged QTc Troponin trending down, was likely 2/2 acute renal failure Maintain MAP>65 Monitor for S/Sx of HD compromise Cardiology following, all recs appreciated Pulm: Able to protect airway now and SpO2 is > 95% on room air Supplemental O2 NC PRN to maintain SpO2 > 90% /Nephro: Severe hypocalcemia may be 2/2 acute renal failure vs chemotherapy induced vs malignancy related Continued Ca repletion, corrected Ca this AM is 5.7 Suspect hypocalcemia may be due to poor absorption from severe hypothyroidism Per Endo recs, will continue Ca supplementation in bag of IVF, decrease rate to 125 cc/hr Hypomagnesemia resolved with replacement Phos trending down with sevelamer, will continue No calciuria noted, PTH pending AGMA improved s/p infusion of 150 mEq of NaHCO3 last night Rhabdomyolysis also noted, may have contributed to renal dysfunction, CPK trending down Renal function parameters improving with IVF, but patient continues to be oliguric Continue strict I & O Continue to avoid nephrotoxic agents Nephrology, Dr. Gary following, all recs appreciated Endo: TSH elevated, unclear etiology of hypothyroidism at this point Recommend 50 mcg dose of IV synthroid Suspect PO synthroid may be poorly absorbed at this point Repeat thyroid function studies in AM after IV replacement Add solu-cortef 50 mg q6h Maintain euglycemia Endocrinology consult placed, all recs appreciated GI: Tolerating diet well without nausea/vomiting Avoid zofran due to QT prolongation, may give phenergan if needed Heme/Onc: New macrocytic anemia noted, with H/H trending down to 10.1/29.2 May be 2/2 dilution effect from IVF B12, folate pending Continue monitoring H/H and for s/sx of HD compromise ID: Afebrile, no leukocytosis F/u dumont cx, procal, lactate Monitor for sx of infection DVT/GI PPX: SC Heparin/protonix Full Code Heart Healthy, renal diet Monitor in MICU Patient seen, examined with, and plan discussed with my attending Dr. Christine Joaquin, D.O. IM Resident PGY-1 Pager: [phone] <Blaise King - Last Filed: 11/03/18 16:18> CCU Objective - Vital Signs / Intake & Output Vital Signs (Last 4 hours): Vital Signs Temp Pulse Resp BP Pulse Ox 11/03/18 15:40 99.0 F 84 16 98 11/03/18 15:38 99.0 F 84 99 11/03/18 15:31 99.0 F 84 23 133/74 99 11/03/18 15:30 99.0 F 86 19 100 11/03/18 15:28 99.0 F 101 H 99 11/03/18 15:23 99.0 F 92 H 98 11/03/18 15:20 99.0 F 105 H 50 H 97 11/03/18 15:15 99.0 F 89 98 11/03/18 15:13 99.0 F 90 97 11/03/18 15:10 99.0 F 83 18 96 11/03/18 15:07 99.0 F 86 98 11/03/18 15:04 99.0 F 84 97 11/03/18 15:00 99.0 F 80 21 119/70 99 11/03/18 14:50 98.8 F 81 31 H 98 11/03/18 14:42 98.8 F 83 98 11/03/18 14:40 98.8 F 80 18 97 04/11/19 14:38 98.8 F 82 98 11/03/18 14:36 98.8 F 84 98 11/03/18 14:33 98.8 F 81 99 11/03/18 14:32 98.8 F 80 98 11/03/18 14:30 98.8 F 79 26 H 113/57 L 97 11/03/18 14:20 98.8 F 83 98 11/03/18 14:10 98.8 F 76 14 98 11/03/18 14:02 98.8 F 76 98 11/03/18 14:00 98.8 F 74 13 98/55 L 98 11/03/18 13:56 98.8 F 77 96 11/03/18 13:50 98.6 F 77 14 98 11/03/18 13:49 98.6 F 77 98 11/03/18 13:40 98.6 F 84 18 96 11/03/18 13:39 98.6 F 81 100 11/03/18 13:32 98.8 F 87 100 11/03/18 13:30 98.8 F 80 17 124/74 99 11/03/18 13:20 99.1 F 83 24 97 11/03/18 13:10 99.1 F 74 12 97 11/03/18 13:00 99.1 F 76 15 113/64 98 11/03/18 12:57 99.1 F 83 97 11/03/18 12:50 99.3 F 81 49 H 97 11/03/18 12:40 99.3 F 81 26 H 98 11/03/18 12:31 99.3 F 77 22 112/61 99 11/03/18 12:30 99.3 F 78 20 97 11/03/18 12:20 99.3 F 85 99 Intake and Output (Last 8hrs): Intake & Output 11/03/18 11/03/18 11/03/18 06:59 14:59 22:59 Intake Total 110 58 Balance 110 58 Intake: IV 110 58 - Medications Active Medications: Active Medications Generic Name Dose Route Start Last Admin Trade Name Freq PRN Reason Stop Dose Admin Calcitriol 0.25 mcg 11/03/18 20:26 Rocaltrol PO 11/03/18 20:27 ONCE ONE Calcitriol 0.25 mcg 11/03/18 10:00 11/03/18 09:25 Rocaltrol PO 11/06/18 10:01 0.25 mcg BID TEODORO Administration Calcium Carbonate 600 mg 11/02/18 18:00 11/03/18 09:26 Caltrate PO 600 mg BID TEODORO Administration Al Hydrox/Mg Hydrox/ 0 ml 11/02/18 13:46 11/02/18 18:57 Simethicone 30 ml/ PO 15 isabel Diphenhydramine HCl 75 mg/ Q2H PRN Administration Lidocaine 30 ml Mouth/Throat Pain Heparin Sodium (Porcine) 5,000 units 11/02/18 14:00 11/03/18 13:03 Heparin SC 5,000 units Q8 TEODORO Administration Protocol Hydrocortisone Sodium Succinate 50 mg 11/03/18 10:45 11/03/18 12:29 Solu-Cortef IVP 50 mg Q6 TEODORO Administration NOREPINEPHRINE BIT/0.9 % NACL 4 mg in 250 mls @ 15 mls/hr 11/02/18 12:31 11/03/18 15:40 Levophed 4 Mg/ 250 Ml Ns Premixed IV 3 mcg/min .[id number] PRN 11.25 mls/hr TITRATE PER MD ORDER Titration Protocol 4 MCG/MIN Calcium Gluconate 1,000 mg/ 1,010 mls @ 125 mls/hr 11/03/18 12:34 11/03/18 14:39 Sodium Chloride IV 125 mls/hr .[id number] TEODORO Administration Potassium Chloride 10 meq in 100 mls @ 50 mls/hr 11/03/18 12:45 11/03/18 14:39 Potassium Chloride 10 Meq/100 Ml IVPB 11/03/18 16:44 50 mls/hr Q2H TEODORO Administration Levothyroxine Sodium 25 mcg 11/03/18 06:00 11/03/18 08:52 Synthroid PO 25 mcg 0600 TEODORO Administration Sevelamer HCl 800 mg 11/02/18 16:30 11/03/18 13:04 Renagel PO 800 mg AC TEODORO Administration Vitamin A 1 ea 11/02/18 13:45 11/02/18 13:50 Vitamin A & D Oint Ud Foilpak TOP 1 ea Q6 PRN Administration Apply to dry lips - Patient Studies Lab Studies: Microbiology Studies 11/02/18 08:30 Blood Culture - Preliminary Blood NO GROWTH AFTER 24 HOURS 11/02/18 08:00 Blood Culture - Preliminary Blood NO GROWTH AFTER 24 HOURS Lab Studies 11/03/18 11/03/18 11/03/18 Range/Units 11:47 11:25 11:25 WBC 4.1 L (4.5-11.0) 10^3/uL RBC 2.66 L (3.5-6.1) 10^6/uL Hgb 9.9 L (12.0-16.0) g/dL Hct 28.4 L (36.0-48.0) % MCV 106.8 H (80.0-105.0) fl MCH 37.2 H (25.0-35.0) pg MCHC 34.9 (31.0-37.0) g/dl RDW 15.0 H (11.5-14.5) % Plt Count 128 (120.0-450.0) 10^3/uL MPV 9.8 (7.0-11.0) fl Neut % (Auto) 74.5 H (50.0-68.0) % Lymph % (Auto) 19.2 L (22.0-35.0) % [place] % (Auto) 5.8 (1.0-6.0) % Eos % (Auto) 0.5 L (1.5-5.0) % Baso % (Auto) 0.0 (0.0-3.0) % Lymph # (Auto) 0.8 L (1.2-3.4) [place] # (Auto) 0.2 (0.1-0.6) Eos # (Auto) 0.0 (0.0-0.7) Baso # (Auto) 0.00 (0.0-2.0) K/mm3 Absolute Neuts (auto) 3.07 (1.4-6.5) PT (9.4-12.5) SECONDS INR APTT (26.9-38.3) Seconds Sodium 135 (132-148) mmol/L Potassium 3.2 L (3.6-5.0) mmol/L Chloride 106 (98-107) mmol/L Carbon Dioxide 19 L (21-33) mmol/L Anion Gap 13 (10-20) BUN 51 H (7-21) mg/dL Creatinine 5.8 H (0.7-1.2) mg/dl Est GFR ( Amer) 9 Est GFR (Non-Af Amer) 7 Random Glucose 123 H (70-110) mg/dL Uric Acid (2.5-6.2) mg/dL Calcium 4.8 L* (8.4-10.5) mg/dL Ionized Calcium (4.80-5.60) mg/dL Phosphorus (2.5-4.5) mg/dL Magnesium (1.7-2.2) mg/dL Total Bilirubin (0.2-1.3) mg/dL AST (14-36) U/L ALT (7-56) U/L Alkaline Phosphatase (38-126) U/L Lactate Dehydrogenase (333-699) U/L Total Creatine Kinase (35-230) U/L CK-MB (CK-2) (0.0-3.6) ng/mL CK-MB (CK-2) % (2.5-3.0) % Troponin I ng/mL Total Protein (5.8-8.3) g/dL Albumin (3.0-4.8) g/dL Globulin gm/dL Albumin/Globulin Ratio (1.1-1.8) Triglycerides (35-160) mg/dL Cholesterol (130-200) mg/dL LDL Cholesterol Direct (0-129) mg/dL HDL Cholesterol (29-60) mg/dL Amylase (35-125) U/L Lipase 1175 H (23-300) U/L Vitamin B12 (239-931) pg/mL 25-OH Vitamin D Total (30.0-100.0) NG/ML Folate ng/mL Free T4 (0.78-2.19) ng/dL Thyroxine (T4) (5.5-11.0) ug/dL Free T3 pg/mL (2.77-5.27) pg/mL TSH 3rd Generation (0.46-4.68) mIU/mL PTH w/Ion &Tot Calcium (14-64) pg/mL Cortisol AM Sample (4.46-22.7) ug/dL Urine Color (YELLOW) Urine Appearance (CLEAR) Urine pH (4.7-8.0) Ur Specific [place] (1.005-1.035) Urine Protein (<30 mg/dL) mg/dL Urine Glucose (UA) (NEGATIVE) mg/dL Urine Ketones (NEGATIVE) mg/dL Urine Blood (NEGATIVE) Urine Nitrate (NEGATIVE) Urine Bilirubin (NEGATIVE) Urine Urobilinogen (<1 E.U./dL) E.U./dL Ur Leukocyte Esterase (NEGATIVE) Kaye/uL Urine RBC (0-2) /hpf Urine WBC (0-6) /hpf Ur Epithelial Cells (0-5) /hpf Urine Bacteria (NONE) /hpf Urine Eosinophils Ur Random Creatinine mg/dL Ur Random Calcium mg/dL 11/03/18 11/03/18 11/03/18 Range/Units 09:20 07:00 07:00 WBC (4.5-11.0) 10^3/uL RBC (3.5-6.1) 10^6/uL Hgb (12.0-16.0) g/dL Hct (36.0-48.0) % MCV (80.0-105.0) fl MCH (25.0-35.0) pg MCHC (31.0-37.0) g/dl RDW (11.5-14.5) % Plt Count (120.0-450.0) 10^3/uL MPV (7.0-11.0) fl Neut % (Auto) (50.0-68.0) % Lymph % (Auto) (22.0-35.0) % [place] % (Auto) (1.0-6.0) % Eos % (Auto) (1.5-5.0) % Baso % (Auto) (0.0-3.0) % Lymph # (Auto) (1.2-3.4) [place] # (Auto) (0.1-0.6) Eos # (Auto) (0.0-0.7) Baso # (Auto) (0.0-2.0) K/mm3 Absolute Neuts (auto) (1.4-6.5) PT (9.4-12.5) SECONDS INR APTT (26.9-38.3) Seconds Sodium (132-148) mmol/L Potassium (3.6-5.0) mmol/L Chloride (98-107) mmol/L Carbon Dioxide (21-33) mmol/L Anion Gap (10-20) BUN (7-21) mg/dL Creatinine (0.7-1.2) mg/dl Est GFR ( Amer) Est GFR (Non-Af Amer) Random Glucose (70-110) mg/dL Uric Acid 9.0 H (2.5-6.2) mg/dL Calcium (8.4-10.5) mg/dL Ionized Calcium (4.80-5.60) mg/dL Phosphorus (2.5-4.5) mg/dL Magnesium (1.7-2.2) mg/dL Total Bilirubin (0.2-1.3) mg/dL AST (14-36) U/L ALT (7-56) U/L Alkaline Phosphatase (38-126) U/L Lactate Dehydrogenase 3914 H (333-699) U/L Total Creatine Kinase (35-230) U/L CK-MB (CK-2) (0.0-3.6) ng/mL CK-MB (CK-2) % (2.5-3.0) % Troponin I ng/mL Total Protein (5.8-8.3) g/dL Albumin (3.0-4.8) g/dL Globulin gm/dL Albumin/Globulin Ratio (1.1-1.8) Triglycerides (35-160) mg/dL Cholesterol (130-200) mg/dL LDL Cholesterol Direct (0-129) mg/dL HDL Cholesterol (29-60) mg/dL Amylase (35-125) U/L Lipase (23-300) U/L Vitamin B12 (239-931) pg/mL 25-OH Vitamin D Total (30.0-100.0) NG/ML Folate ng/mL Free T4 0.92 (0.78-2.19) ng/dL Thyroxine (T4) 4.3 L (5.5-11.0) ug/dL Free T3 pg/mL (2.77-5.27) pg/mL TSH 3rd Generation (0.46-4.68) mIU/mL PTH w/Ion &Tot Calcium (14-64) pg/mL Cortisol AM Sample 12.9 (4.46-22.7) ug/dL Urine Color (YELLOW) Urine Appearance (CLEAR) Urine pH (4.7-8.0) Ur Specific [place] (1.005-1.035) Urine Protein (<30 mg/dL) mg/dL Urine Glucose (UA) (NEGATIVE) mg/dL Urine Ketones (NEGATIVE) mg/dL Urine Blood (NEGATIVE) Urine Nitrate (NEGATIVE) Urine Bilirubin (NEGATIVE) Urine Urobilinogen (<1 E.U./dL) E.U./dL Ur Leukocyte Esterase (NEGATIVE) Kaye/uL Urine RBC (0-2) /hpf Urine WBC (0-6) /hpf Ur Epithelial Cells (0-5) /hpf Urine Bacteria (NONE) /hpf Urine Eosinophils Ur Random Creatinine mg/dL Ur Random Calcium mg/dL 11/03/18 11/03/18 11/03/18 Range/Units 07:00 05:30 05:30 WBC (4.5-11.0) 10^3/uL RBC (3.5-6.1) 10^6/uL Hgb (12.0-16.0) g/dL Hct (36.0-48.0) % MCV (80.0-105.0) fl MCH (25.0-35.0) pg MCHC (31.0-37.0) g/dl RDW (11.5-14.5) % Plt Count (120.0-450.0) 10^3/uL MPV (7.0-11.0) fl Neut % (Auto) (50.0-68.0) % Lymph % (Auto) (22.0-35.0) % [place] % (Auto) (1.0-6.0) % Eos % (Auto) (1.5-5.0) % Baso % (Auto) (0.0-3.0) % Lymph # (Auto) (1.2-3.4) [place] # (Auto) (0.1-0.6) Eos # (Auto) (0.0-0.7) Baso # (Auto) (0.0-2.0) K/mm3 Absolute Neuts (auto) (1.4-6.5) PT 16.5 H (9.4-12.5) SECONDS INR 1.46 APTT 35.5 (26.9-38.3) Seconds Sodium (132-148) mmol/L Potassium (3.6-5.0) mmol/L Chloride (98-107) mmol/L Carbon Dioxide (21-33) mmol/L Anion Gap (10-20) BUN (7-21) mg/dL Creatinine (0.7-1.2) mg/dl Est GFR ( Amer) Est GFR (Non-Af Amer) Random Glucose (70-110) mg/dL Uric Acid (2.5-6.2) mg/dL Calcium (8.4-10.5) mg/dL Ionized Calcium (4.80-5.60) mg/dL Phosphorus (2.5-4.5) mg/dL Magnesium (1.7-2.2) mg/dL Total Bilirubin (0.2-1.3) mg/dL AST (14-36) U/L ALT (7-56) U/L Alkaline Phosphatase (38-126) U/L Lactate Dehydrogenase (333-699) U/L Total Creatine Kinase (35-230) U/L CK-MB (CK-2) (0.0-3.6) ng/mL CK-MB (CK-2) % (2.5-3.0) % Troponin I ng/mL Total Protein (5.8-8.3) g/dL Albumin (3.0-4.8) g/dL Globulin gm/dL Albumin/Globulin Ratio (1.1-1.8) Triglycerides (35-160) mg/dL Cholesterol (130-200) mg/dL LDL Cholesterol Direct (0-129) mg/dL HDL Cholesterol (29-60) mg/dL Amylase (35-125) U/L Lipase (23-300) U/L Vitamin B12 (239-931) pg/mL 25-OH Vitamin D Total (30.0-100.0) NG/ML Folate ng/mL Free T4 (0.78-2.19) ng/dL Thyroxine (T4) (5.5-11.0) ug/dL Free T3 pg/mL 2.48 L (2.77-5.27) pg/mL TSH 3rd Generation 39.40 H (0.46-4.68) mIU/mL PTH w/Ion &Tot Calcium (14-64) pg/mL Cortisol AM Sample (4.46-22.7) ug/dL Urine Color (YELLOW) Urine Appearance (CLEAR) Urine pH (4.7-8.0) Ur Specific [place] (1.005-1.035) Urine Protein (<30 mg/dL) mg/dL Urine Glucose (UA) (NEGATIVE) mg/dL Urine Ketones (NEGATIVE) mg/dL Urine Blood (NEGATIVE) Urine Nitrate (NEGATIVE) Urine Bilirubin (NEGATIVE) Urine Urobilinogen (<1 E.U./dL) E.U./dL Ur Leukocyte Esterase (NEGATIVE) Kaye/uL Urine RBC (0-2) /hpf Urine WBC (0-6) /hpf Ur Epithelial Cells (0-5) /hpf Urine Bacteria (NONE) /hpf Urine Eosinophils Ur Random Creatinine mg/dL Ur Random Calcium mg/dL 11/03/18 11/03/18 11/03/18 Range/Units 05:30 05:30 01:08 WBC 3.9 L D (4.5-11.0) 10^3/uL RBC 2.75 L (3.5-6.1) 10^6/uL Hgb 10.1 L D (12.0-16.0) g/dL Hct 29.2 L (36.0-48.0) % MCV 106.2 H (80.0-105.0) fl MCH 36.7 H (25.0-35.0) pg MCHC 34.6 (31.0-37.0) g/dl RDW 15.0 H (11.5-14.5) % Plt Count 130 (120.0-450.0) 10^3/uL MPV 10.1 (7.0-11.0) fl Neut % (Auto) 71.4 H (50.0-68.0) % Lymph % (Auto) 21.6 L (22.0-35.0) % [place] % (Auto) 6.2 H (1.0-6.0) % Eos % (Auto) 0.5 L (1.5-5.0) % Baso % (Auto) 0.3 (0.0-3.0) % Lymph # (Auto) 0.8 L (1.2-3.4) [place] # (Auto) 0.2 (0.1-0.6) Eos # (Auto) 0.0 (0.0-0.7) Baso # (Auto) 0.01 (0.0-2.0) K/mm3 Absolute Neuts (auto) 2.78 (1.4-6.5) PT (9.4-12.5) SECONDS INR APTT (26.9-38.3) Seconds Sodium 135 132 (132-148) mmol/L Potassium 3.8 3.6 (3.6-5.0) mmol/L Chloride 104 100 (98-107) mmol/L Carbon Dioxide 18 L 18 L (21-33) mmol/L Anion Gap 17 18 (10-20) BUN 57 H 62 H (7-21) mg/dL Creatinine 7.1 H 8.0 H* (0.7-1.2) mg/dl Est GFR ( Amer) 7 6 Est GFR (Non-Af Amer) 6 5 Random Glucose 89 93 (70-110) mg/dL Uric Acid (2.5-6.2) mg/dL Calcium 4.6 L* 4.5 L* (8.4-10.5) mg/dL Ionized Calcium (4.80-5.60) mg/dL Phosphorus 6.8 H 8.1 H (2.5-4.5) mg/dL Magnesium 2.0 2.3 H (1.7-2.2) mg/dL Total Bilirubin 0.8 (0.2-1.3) mg/dL AST 91 H (14-36) U/L ALT 92 H (7-56) U/L Alkaline Phosphatase 76 (38-126) U/L Lactate Dehydrogenase (333-699) U/L Total Creatine Kinase 6256 H (35-230) U/L CK-MB (CK-2) 8.3 H (0.0-3.6) ng/mL CK-MB (CK-2) % 0.1 L (2.5-3.0) % Troponin I 0.17 H* ng/mL Total Protein 5.0 L (5.8-8.3) g/dL Albumin 2.6 L (3.0-4.8) g/dL Globulin 2.4 gm/dL Albumin/Globulin Ratio 1.1 (1.1-1.8) Triglycerides 232 H (35-160) mg/dL Cholesterol 173 (130-200) mg/dL LDL Cholesterol Direct 101 (0-129) mg/dL HDL Cholesterol 33 (29-60) mg/dL Amylase (35-125) U/L Lipase (23-300) U/L Vitamin B12 635 (239-931) pg/mL 25-OH Vitamin D Total (30.0-100.0) NG/ML Folate > 20.0 ng/mL Free T4 (0.78-2.19) ng/dL Thyroxine (T4) (5.5-11.0) ug/dL Free T3 pg/mL (2.77-5.27) pg/mL TSH 3rd Generation (0.46-4.68) mIU/mL PTH w/Ion &Tot Calcium (14-64) pg/mL Cortisol AM Sample (4.46-22.7) ug/dL Urine Color (YELLOW) Urine Appearance (CLEAR) Urine pH (4.7-8.0) Ur Specific [place] (1.005-1.035) Urine Protein (<30 mg/dL) mg/dL Urine Glucose (UA) (NEGATIVE) mg/dL Urine Ketones (NEGATIVE) mg/dL Urine Blood (NEGATIVE) Urine Nitrate (NEGATIVE) Urine Bilirubin (NEGATIVE) Urine Urobilinogen (<1 E.U./dL) E.U./dL Ur Leukocyte Esterase (NEGATIVE) Kaye/uL Urine RBC (0-2) /hpf Urine WBC (0-6) /hpf Ur Epithelial Cells (0-5) /hpf Urine Bacteria (NONE) /hpf Urine Eosinophils Ur Random Creatinine mg/dL Ur Random Calcium mg/dL 11/02/18 11/02/18 11/02/18 Range/Units 21:26 16:00 16:00 WBC (4.5-11.0) 10^3/uL RBC (3.5-6.1) 10^6/uL Hgb (12.0-16.0) g/dL Hct (36.0-48.0) % MCV (80.0-105.0) fl MCH (25.0-35.0) pg MCHC (31.0-37.0) g/dl RDW (11.5-14.5) % Plt Count (120.0-450.0) 10^3/uL MPV (7.0-11.0) fl Neut % (Auto) (50.0-68.0) % Lymph % (Auto) (22.0-35.0) % [place] % (Auto) (1.0-6.0) % Eos % (Auto) (1.5-5.0) % Baso % (Auto) (0.0-3.0) % Lymph # (Auto) (1.2-3.4) [place] # (Auto) (0.1-0.6) Eos # (Auto) (0.0-0.7) Baso # (Auto) (0.0-2.0) K/mm3 Absolute Neuts (auto) (1.4-6.5) PT (9.4-12.5) SECONDS INR APTT (26.9-38.3) Seconds Sodium 131 L (132-148) mmol/L Potassium 2.6 L* (3.6-5.0) mmol/L Chloride 96 L (98-107) mmol/L Carbon Dioxide 19 L (21-33) mmol/L Anion Gap 18 (10-20) BUN 67 H (7-21) mg/dL Creatinine 8.9 H* (0.7-1.2) mg/dl Est GFR ( Amer) 5 Est GFR (Non-Af Amer) 4 Random Glucose 80 (70-110) mg/dL Uric Acid (2.5-6.2) mg/dL Calcium 4.2 L* (8.4-10.5) mg/dL Ionized Calcium <2.50 L (4.80-5.60) mg/dL Phosphorus 9.2 H (2.5-4.5) mg/dL Magnesium 1.4 L (1.7-2.2) mg/dL Total Bilirubin (0.2-1.3) mg/dL AST (14-36) U/L ALT (7-56) U/L Alkaline Phosphatase (38-126) U/L Lactate Dehydrogenase (333-699) U/L Total Creatine Kinase 9379 H (35-230) U/L CK-MB (CK-2) 13.3 H (0.0-3.6) ng/mL CK-MB (CK-2) % 0.1 L (2.5-3.0) % Troponin I 0.19 H* ng/mL Total Protein (5.8-8.3) g/dL Albumin (3.0-4.8) g/dL Globulin gm/dL Albumin/Globulin Ratio (1.1-1.8) Triglycerides (35-160) mg/dL Cholesterol (130-200) mg/dL LDL Cholesterol Direct (0-129) mg/dL HDL Cholesterol (29-60) mg/dL Amylase 92 (35-125) U/L Lipase 511 H (23-300) U/L Vitamin B12 (239-931) pg/mL 25-OH Vitamin D Total (30.0-100.0) NG/ML Folate ng/mL Free T4 (0.78-2.19) ng/dL Thyroxine (T4) (5.5-11.0) ug/dL Free T3 pg/mL (2.77-5.27) pg/mL TSH 3rd Generation (0.46-4.68) mIU/mL PTH w/Ion &Tot Calcium (14-64) pg/mL Cortisol AM Sample (4.46-22.7) ug/dL Urine Color (YELLOW) Urine Appearance (CLEAR) Urine pH (4.7-8.0) Ur Specific [place] (1.005-1.035) Urine Protein (<30 mg/dL) mg/dL Urine Glucose (UA) (NEGATIVE) mg/dL Urine Ketones (NEGATIVE) mg/dL Urine Blood (NEGATIVE) Urine Nitrate (NEGATIVE) Urine Bilirubin (NEGATIVE) Urine Urobilinogen (<1 E.U./dL) E.U./dL Ur Leukocyte Esterase (NEGATIVE) Kaye/uL Urine RBC (0-2) /hpf Urine WBC (0-6) /hpf Ur Epithelial Cells (0-5) /hpf Urine Bacteria (NONE) /hpf Urine Eosinophils Ur Random Creatinine mg/dL Ur Random Calcium mg/dL 11/02/18 11/02/18 11/02/18 Range/Units 16:00 14:00 13:30 WBC (4.5-11.0) 10^3/uL RBC (3.5-6.1) 10^6/uL Hgb (12.0-16.0) g/dL Hct (36.0-48.0) % MCV (80.0-105.0) fl MCH (25.0-35.0) pg MCHC (31.0-37.0) g/dl RDW (11.5-14.5) % Plt Count (120.0-450.0) 10^3/uL MPV (7.0-11.0) fl Neut % (Auto) (50.0-68.0) % Lymph % (Auto) (22.0-35.0) % [place] % (Auto) (1.0-6.0) % Eos % (Auto) (1.5-5.0) % Baso % (Auto) (0.0-3.0) % Lymph # (Auto) (1.2-3.4) [place] # (Auto) (0.1-0.6) Eos # (Auto) (0.0-0.7) Baso # (Auto) (0.0-2.0) K/mm3 Absolute Neuts (auto) (1.4-6.5) PT (9.4-12.5) SECONDS INR APTT (26.9-38.3) Seconds Sodium 131 L (132-148) mmol/L Potassium 3.0 L (3.6-5.0) mmol/L Chloride 94 L (98-107) mmol/L Carbon Dioxide 13 L (21-33) mmol/L Anion Gap 27 H (10-20) BUN 72 H (7-21) mg/dL Creatinine 10.5 H* (0.7-1.2) mg/dl Est GFR ( Amer) 4 Est GFR (Non-Af Amer) 4 Random Glucose 166 H (70-110) mg/dL Uric Acid (2.5-6.2) mg/dL Calcium 4.2 L* (8.4-10.5) mg/dL Ionized Calcium (4.80-5.60) mg/dL Phosphorus 13.8 H (2.5-4.5) mg/dL Magnesium 1.8 (1.7-2.2) mg/dL Total Bilirubin (0.2-1.3) mg/dL AST (14-36) U/L ALT (7-56) U/L Alkaline Phosphatase (38-126) U/L Lactate Dehydrogenase (333-699) U/L Total Creatine Kinase (35-230) U/L CK-MB (CK-2) (0.0-3.6) ng/mL CK-MB (CK-2) % (2.5-3.0) % Troponin I 0.20 H* ng/mL Total Protein (5.8-8.3) g/dL Albumin (3.0-4.8) g/dL Globulin gm/dL Albumin/Globulin Ratio (1.1-1.8) Triglycerides (35-160) mg/dL Cholesterol (130-200) mg/dL LDL Cholesterol Direct (0-129) mg/dL HDL Cholesterol (29-60) mg/dL Amylase (35-125) U/L Lipase (23-300) U/L Vitamin B12 (239-931) pg/mL 25-OH Vitamin D Total (30.0-100.0) NG/ML Folate ng/mL Free T4 (0.78-2.19) ng/dL Thyroxine (T4) (5.5-11.0) ug/dL Free T3 pg/mL (2.77-5.27) pg/mL TSH 3rd Generation (0.46-4.68) mIU/mL PTH w/Ion &Tot Calcium (14-64) pg/mL Cortisol AM Sample (4.46-22.7) ug/dL Urine Color (YELLOW) Urine Appearance (CLEAR) Urine pH (4.7-8.0) Ur Specific [place] (1.005-1.035) Urine Protein (<30 mg/dL) mg/dL Urine Glucose (UA) (NEGATIVE) mg/dL Urine Ketones (NEGATIVE) mg/dL Urine Blood (NEGATIVE) Urine Nitrate (NEGATIVE) Urine Bilirubin (NEGATIVE) Urine Urobilinogen (<1 E.U./dL) E.U./dL Ur Leukocyte Esterase (NEGATIVE) Kaye/uL Urine RBC (0-2) /hpf Urine WBC (0-6) /hpf Ur Epithelial Cells (0-5) /hpf Urine Bacteria (NONE) /hpf Urine Eosinophils Negative Ur Random Creatinine mg/dL Ur Random Calcium < 1.0 mg/dL 11/02/18 11/02/18 11/02/18 Range/Units 13:30 12:15 10:54 WBC (4.5-11.0) 10^3/uL RBC (3.5-6.1) 10^6/uL Hgb (12.0-16.0) g/dL Hct (36.0-48.0) % MCV (80.0-105.0) fl MCH (25.0-35.0) pg MCHC (31.0-37.0) g/dl RDW (11.5-14.5) % Plt Count (120.0-450.0) 10^3/uL MPV (7.0-11.0) fl Neut % (Auto) (50.0-68.0) % Lymph % (Auto) (22.0-35.0) % [place] % (Auto) (1.0-6.0) % Eos % (Auto) (1.5-5.0) % Baso % (Auto) (0.0-3.0) % Lymph # (Auto) (1.2-3.4) [place] # (Auto) (0.1-0.6) Eos # (Auto) (0.0-0.7) Baso # (Auto) (0.0-2.0) K/mm3 Absolute Neuts (auto) (1.4-6.5) PT (9.4-12.5) SECONDS INR APTT (26.9-38.3) Seconds Sodium (132-148) mmol/L Potassium (3.6-5.0) mmol/L Chloride (98-107) mmol/L Carbon Dioxide (21-33) mmol/L Anion Gap (10-20) BUN (7-21) mg/dL Creatinine (0.7-1.2) mg/dl Est GFR ( Amer) Est GFR (Non-Af Amer) Random Glucose (70-110) mg/dL Uric Acid (2.5-6.2) mg/dL Calcium (8.4-10.5) mg/dL Ionized Calcium (4.80-5.60) mg/dL Phosphorus (2.5-4.5) mg/dL Magnesium (1.7-2.2) mg/dL Total Bilirubin (0.2-1.3) mg/dL AST (14-36) U/L ALT (7-56) U/L Alkaline Phosphatase (38-126) U/L Lactate Dehydrogenase (333-699) U/L Total Creatine Kinase (35-230) U/L CK-MB (CK-2) (0.0-3.6) ng/mL CK-MB (CK-2) % (2.5-3.0) % Troponin I ng/mL Total Protein (5.8-8.3) g/dL Albumin (3.0-4.8) g/dL Globulin gm/dL Albumin/Globulin Ratio (1.1-1.8) Triglycerides (35-160) mg/dL Cholesterol (130-200) mg/dL LDL Cholesterol Direct (0-129) mg/dL HDL Cholesterol (29-60) mg/dL Amylase (35-125) U/L Lipase (23-300) U/L Vitamin B12 (239-931) pg/mL 25-OH Vitamin D Total 28.1 L (30.0-100.0) NG/ML Folate ng/mL Free T4 (0.78-2.19) ng/dL Thyroxine (T4) (5.5-11.0) ug/dL Free T3 pg/mL (2.77-5.27) pg/mL TSH 3rd Generation (0.46-4.68) mIU/mL PTH w/Ion &Tot Calcium (14-64) pg/mL Cortisol AM Sample (4.46-22.7) ug/dL Urine Color Yellow (YELLOW) Urine Appearance Sl cloudy (CLEAR) Urine pH 5.5 (4.7-8.0) Ur Specific [place] 1.025 (1.005-1.035) Urine Protein 100 H (<30 mg/dL) mg/dL Urine Glucose (UA) Negative (NEGATIVE) mg/dL Urine Ketones Negative (NEGATIVE) mg/dL Urine Blood Moderate H (NEGATIVE) Urine Nitrate Negative (NEGATIVE) Urine Bilirubin Negative (NEGATIVE) Urine Urobilinogen 0.2 (<1 E.U./dL) E.U./dL Ur Leukocyte Esterase Negative (NEGATIVE) Kaye/uL Urine RBC 5 - 10 H (0-2) /hpf Urine WBC 5 - 10 H (0-6) /hpf Ur Epithelial Cells 4 - 5 (0-5) /hpf Urine Bacteria Mod (NONE) /hpf Urine Eosinophils Ur Random Creatinine 220 mg/dL Ur Random Calcium mg/dL 11/02/18 Range/Units 08:00 WBC (4.5-11.0) 10^3/uL RBC (3.5-6.1) 10^6/uL Hgb (12.0-16.0) g/dL Hct (36.0-48.0) % MCV (80.0-105.0) fl MCH (25.0-35.0) pg MCHC (31.0-37.0) g/dl RDW (11.5-14.5) % Plt Count (120.0-450.0) 10^3/uL MPV (7.0-11.0) fl Neut % (Auto) (50.0-68.0) % Lymph % (Auto) (22.0-35.0) % [place] % (Auto) (1.0-6.0) % Eos % (Auto) (1.5-5.0) % Baso % (Auto) (0.0-3.0) % Lymph # (Auto) (1.2-3.4) [place] # (Auto) (0.1-0.6) Eos # (Auto) (0.0-0.7) Baso # (Auto) (0.0-2.0) K/mm3 Absolute Neuts (auto) (1.4-6.5) PT (9.4-12.5) SECONDS INR APTT (26.9-38.3) Seconds Sodium (132-148) mmol/L Potassium (3.6-5.0) mmol/L Chloride (98-107) mmol/L Carbon Dioxide (21-33) mmol/L Anion Gap (10-20) BUN (7-21) mg/dL Creatinine (0.7-1.2) mg/dl Est GFR ( Amer) Est GFR (Non-Af Amer) Random Glucose (70-110) mg/dL Uric Acid (2.5-6.2) mg/dL Calcium (8.4-10.5) mg/dL Ionized Calcium (4.80-5.60) mg/dL Phosphorus (2.5-4.5) mg/dL Magnesium (1.7-2.2) mg/dL Total Bilirubin (0.2-1.3) mg/dL AST (14-36) U/L ALT (7-56) U/L Alkaline Phosphatase (38-126) U/L Lactate Dehydrogenase (333-699) U/L Total Creatine Kinase (35-230) U/L CK-MB (CK-2) (0.0-3.6) ng/mL CK-MB (CK-2) % (2.5-3.0) % Troponin I ng/mL Total Protein (5.8-8.3) g/dL Albumin (3.0-4.8) g/dL Globulin gm/dL Albumin/Globulin Ratio (1.1-1.8) Triglycerides (35-160) mg/dL Cholesterol (130-200) mg/dL LDL Cholesterol Direct (0-129) mg/dL HDL Cholesterol (29-60) mg/dL Amylase (35-125) U/L Lipase (23-300) U/L Vitamin B12 (239-931) pg/mL 25-OH Vitamin D Total (30.0-100.0) NG/ML Folate ng/mL Free T4 (0.78-2.19) ng/dL Thyroxine (T4) (5.5-11.0) ug/dL Free T3 pg/mL (2.77-5.27) pg/mL TSH 3rd Generation (0.46-4.68) mIU/mL PTH w/Ion &Tot Calcium 877 H (14-64) pg/mL Cortisol AM Sample (4.46-22.7) ug/dL Urine Color (YELLOW) Urine Appearance (CLEAR) Urine pH (4.7-8.0) Ur Specific [place] (1.005-1.035) Urine Protein (<30 mg/dL) mg/dL Urine Glucose (UA) (NEGATIVE) mg/dL Urine Ketones (NEGATIVE) mg/dL Urine Blood (NEGATIVE) Urine Nitrate (NEGATIVE) Urine Bilirubin (NEGATIVE) Urine Urobilinogen (<1 E.U./dL) E.U./dL Ur Leukocyte Esterase (NEGATIVE) Kaye/uL Urine RBC (0-2) /hpf Urine WBC (0-6) /hpf Ur Epithelial Cells (0-5) /hpf Urine Bacteria (NONE) /hpf Urine Eosinophils Ur Random Creatinine mg/dL Ur Random Calcium mg/dL Laboratory Results - last 24 hr 11/02/18 11/02/18 11/02/18 08:00 10:54 12:15 WBC RBC Hgb Hct MCV MCH MCHC RDW Plt Count MPV Neut % (Auto) Lymph % (Auto) [place] % (Auto) Eos % (Auto) Baso % (Auto) Lymph # (Auto) [place] # (Auto) Eos # (Auto) Baso # (Auto) Absolute Neuts (auto) PT INR APTT Sodium Potassium Chloride Carbon Dioxide Anion Gap BUN Creatinine Est GFR ( Amer) Est GFR (Non-Af Amer) Random Glucose Uric Acid Calcium Ionized Calcium Phosphorus Magnesium Total Bilirubin AST ALT Alkaline Phosphatase Lactate Dehydrogenase Total Creatine Kinase CK-MB (CK-2) CK-MB (CK-2) % Troponin I Total Protein Albumin Globulin Albumin/Globulin Ratio Triglycerides Cholesterol LDL Cholesterol Direct HDL Cholesterol Amylase Lipase Vitamin B12 25-OH Vitamin D Total 28.1 L Folate Free T4 Thyroxine (T4) Free T3 pg/mL TSH 3rd Generation PTH w/Ion &Tot Calcium 877 H Cortisol AM Sample Urine Color Urine Appearance Urine pH Ur Specific [place] Urine Protein Urine Glucose (UA) Urine Ketones Urine Blood Urine Nitrate Urine Bilirubin Urine Urobilinogen Ur Leukocyte Esterase Urine RBC Urine WBC Ur Epithelial Cells Urine Bacteria Urine Eosinophils Ur Random Creatinine 220 Ur Random Calcium 11/02/18 11/02/18 11/02/18 13:30 13:30 14:00 WBC RBC Hgb Hct MCV MCH MCHC RDW Plt Count MPV Neut % (Auto) Lymph % (Auto) [place] % (Auto) Eos % (Auto) Baso % (Auto) Lymph # (Auto) [place] # (Auto) Eos # (Auto) Baso # (Auto) Absolute Neuts (auto) PT INR APTT Sodium Potassium Chloride Carbon Dioxide Anion Gap BUN Creatinine Est GFR ( Amer) Est GFR (Non-Af Amer) Random Glucose Uric Acid Calcium Ionized Calcium Phosphorus Magnesium Total Bilirubin AST ALT Alkaline Phosphatase Lactate Dehydrogenase Total Creatine Kinase CK-MB (CK-2) CK-MB (CK-2) % Troponin I Total Protein Albumin Globulin Albumin/Globulin Ratio Triglycerides Cholesterol LDL Cholesterol Direct HDL Cholesterol Amylase Lipase Vitamin B12 25-OH Vitamin D Total Folate Free T4 Thyroxine (T4) Free T3 pg/mL TSH 3rd Generation PTH w/Ion &Tot Calcium Cortisol AM Sample Urine Color Yellow Urine Appearance Sl cloudy Urine pH 5.5 Ur Specific [place] 1.025 Urine Protein 100 H Urine Glucose (UA) Negative Urine Ketones Negative Urine Blood Moderate H Urine Nitrate Negative Urine Bilirubin Negative Urine Urobilinogen 0.2 Ur Leukocyte Esterase Negative Urine RBC 5 - 10 H Urine WBC 5 - 10 H Ur Epithelial Cells 4 - 5 Urine Bacteria Mod Urine Eosinophils Negative Ur Random Creatinine Ur Random Calcium < 1.0 11/02/18 11/02/18 11/02/18 16:00 16:00 16:00 WBC RBC Hgb Hct MCV MCH MCHC RDW Plt Count MPV Neut % (Auto) Lymph % (Auto) [place] % (Auto) Eos % (Auto) Baso % (Auto) Lymph # (Auto) [place] # (Auto) Eos # (Auto) Baso # (Auto) Absolute Neuts (auto) PT INR APTT Sodium 131 L Potassium 3.0 L Chloride 94 L Carbon Dioxide 13 L Anion Gap 27 H BUN 72 H Creatinine 10.5 H* Est GFR ( Amer) 4 Est GFR (Non-Af Amer) 4 Random Glucose 166 H Uric Acid Calcium 4.2 L* Ionized Calcium <2.50 L Phosphorus 13.8 H Magnesium 1.8 Total Bilirubin AST ALT Alkaline Phosphatase Lactate Dehydrogenase Total Creatine Kinase 9379 H CK-MB (CK-2) 13.3 H CK-MB (CK-2) % 0.1 L Troponin I 0.20 H* Total Protein Albumin Globulin Albumin/Globulin Ratio Triglycerides Cholesterol LDL Cholesterol Direct HDL Cholesterol Amylase Lipase Vitamin B12 25-OH Vitamin D Total Folate Free T4 Thyroxine (T4) Free T3 pg/mL TSH 3rd Generation PTH w/Ion &Tot Calcium Cortisol AM Sample Urine Color Urine Appearance Urine pH Ur Specific [place] Urine Protein Urine Glucose (UA) Urine Ketones Urine Blood Urine Nitrate Urine Bilirubin Urine Urobilinogen Ur Leukocyte Esterase Urine RBC Urine WBC Ur Epithelial Cells Urine Bacteria Urine Eosinophils Ur Random Creatinine Ur Random Calcium 11/02/18 11/03/18 11/03/18 21:26 01:08 05:30 WBC 3.9 L D RBC 2.75 L Hgb 10.1 L D Hct 29.2 L MCV 106.2 H MCH 36.7 H MCHC 34.6 RDW 15.0 H Plt Count 130 MPV 10.1 Neut % (Auto) 71.4 H Lymph % (Auto) 21.6 L [place] % (Auto) 6.2 H Eos % (Auto) 0.5 L Baso % (Auto) 0.3 Lymph # (Auto) 0.8 L [place] # (Auto) 0.2 Eos # (Auto) 0.0 Baso # (Auto) 0.01 Absolute Neuts (auto) 2.78 PT INR APTT Sodium 131 L 132 Potassium 2.6 L* 3.6 Chloride 96 L 100 Carbon Dioxide 19 L 18 L Anion Gap 18 18 BUN 67 H 62 H Creatinine 8.9 H* 8.0 H* Est GFR ( Amer) 5 6 Est GFR (Non-Af Amer) 4 5 Random Glucose 80 93 Uric Acid Calcium 4.2 L* 4.5 L* Ionized Calcium Phosphorus 9.2 H 8.1 H Magnesium 1.4 L 2.3 H Total Bilirubin AST ALT Alkaline Phosphatase Lactate Dehydrogenase Total Creatine Kinase CK-MB (CK-2) CK-MB (CK-2) % Troponin I 0.19 H* 0.17 H* Total Protein Albumin Globulin Albumin/Globulin Ratio Triglycerides Cholesterol LDL Cholesterol Direct HDL Cholesterol Amylase 92 Lipase 511 H Vitamin B12 25-OH Vitamin D Total Folate Free T4 Thyroxine (T4) Free T3 pg/mL TSH 3rd Generation PTH w/Ion &Tot Calcium Cortisol AM Sample Urine Color Urine Appearance Urine pH Ur Specific [place] Urine Protein Urine Glucose (UA) Urine Ketones Urine Blood Urine Nitrate Urine Bilirubin Urine Urobilinogen Ur Leukocyte Esterase Urine RBC Urine WBC Ur Epithelial Cells Urine Bacteria Urine Eosinophils Ur Random Creatinine Ur Random Calcium 11/03/18 11/03/18 11/03/18 05:30 05:30 05:30 WBC RBC Hgb Hct MCV MCH MCHC RDW Plt Count MPV Neut % (Auto) Lymph % (Auto) [place] % (Auto) Eos % (Auto) Baso % (Auto) Lymph # (Auto) [place] # (Auto) Eos # (Auto) Baso # (Auto) Absolute Neuts (auto) PT 16.5 H INR 1.46 APTT 35.5 Sodium 135 Potassium 3.8 Chloride 104 Carbon Dioxide 18 L Anion Gap 17 BUN 57 H Creatinine 7.1 H Est GFR ( Amer) 7 Est GFR (Non-Af Amer) 6 Random Glucose 89 Uric Acid Calcium 4.6 L* Ionized Calcium Phosphorus 6.8 H Magnesium 2.0 Total Bilirubin 0.8 AST 91 H ALT 92 H Alkaline Phosphatase 76 Lactate Dehydrogenase Total Creatine Kinase 6256 H CK-MB (CK-2) 8.3 H CK-MB (CK-2) % 0.1 L Troponin I Total Protein 5.0 L Albumin 2.6 L Globulin 2.4 Albumin/Globulin Ratio 1.1 Triglycerides 232 H Cholesterol 173 LDL Cholesterol Direct 101 HDL Cholesterol 33 Amylase Lipase Vitamin B12 635 25-OH Vitamin D Total Folate > 20.0 Free T4 Thyroxine (T4) Free T3 pg/mL TSH 3rd Generation 39.40 H PTH w/Ion &Tot Calcium Cortisol AM Sample Urine Color Urine Appearance Urine pH Ur Specific [place] Urine Protein Urine Glucose (UA) Urine Ketones Urine Blood Urine Nitrate Urine Bilirubin Urine Urobilinogen Ur Leukocyte Esterase Urine RBC Urine WBC Ur Epithelial Cells Urine Bacteria Urine Eosinophils Ur Random Creatinine Ur Random Calcium 11/03/18 11/03/18 11/03/18 07:00 07:00 07:00 WBC RBC Hgb Hct MCV MCH MCHC RDW Plt Count MPV Neut % (Auto) Lymph % (Auto) [place] % (Auto) Eos % (Auto) Baso % (Auto) Lymph # (Auto) [place] # (Auto) Eos # (Auto) Baso # (Auto) Absolute Neuts (auto) PT INR APTT Sodium Potassium Chloride Carbon Dioxide Anion Gap BUN Creatinine Est GFR ( Amer) Est GFR (Non-Af Amer) Random Glucose Uric Acid Calcium Ionized Calcium Phosphorus Magnesium Total Bilirubin AST ALT Alkaline Phosphatase Lactate Dehydrogenase Total Creatine Kinase CK-MB (CK-2) CK-MB (CK-2) % Troponin I Total Protein Albumin Globulin Albumin/Globulin Ratio Triglycerides Cholesterol LDL Cholesterol Direct HDL Cholesterol Amylase Lipase Vitamin B12 25-OH Vitamin D Total Folate Free T4 0.92 Thyroxine (T4) 4.3 L Free T3 pg/mL 2.48 L TSH 3rd Generation PTH w/Ion &Tot Calcium Cortisol AM Sample 12.9 Urine Color Urine Appearance Urine pH Ur Specific [place] Urine Protein Urine Glucose (UA) Urine Ketones Urine Blood Urine Nitrate Urine Bilirubin Urine Urobilinogen Ur Leukocyte Esterase Urine RBC Urine WBC Ur Epithelial Cells Urine Bacteria Urine Eosinophils Ur Random Creatinine Ur Random Calcium 11/03/18 11/03/18 11/03/18 09:20 11:25 11:25 WBC 4.1 L RBC 2.66 L Hgb 9.9 L Hct 28.4 L MCV 106.8 H MCH 37.2 H MCHC 34.9 RDW 15.0 H Plt Count 128 MPV 9.8 Neut % (Auto) 74.5 H Lymph % (Auto) 19.2 L [place] % (Auto) 5.8 Eos % (Auto) 0.5 L Baso % (Auto) 0.0 Lymph # (Auto) 0.8 L [place] # (Auto) 0.2 Eos # (Auto) 0.0 Baso # (Auto) 0.00 Absolute Neuts (auto) 3.07 PT INR APTT Sodium 135 Potassium 3.2 L Chloride 106 Carbon Dioxide 19 L Anion Gap 13 BUN 51 H Creatinine 5.8 H Est GFR ( Amer) 9 Est GFR (Non-Af Amer) 7 Random Glucose 123 H Uric Acid 9.0 H Calcium 4.8 L* Ionized Calcium Phosphorus Magnesium Total Bilirubin AST ALT Alkaline Phosphatase Lactate Dehydrogenase 3914 H Total Creatine Kinase CK-MB (CK-2) CK-MB (CK-2) % Troponin I Total Protein Albumin Globulin Albumin/Globulin Ratio Triglycerides Cholesterol LDL Cholesterol Direct HDL Cholesterol Amylase Lipase Vitamin B12 25-OH Vitamin D Total Folate Free T4 Thyroxine (T4) Free T3 pg/mL TSH 3rd Generation PTH w/Ion &Tot Calcium Cortisol AM Sample Urine Color Urine Appearance Urine pH Ur Specific [place] Urine Protein Urine Glucose (UA) Urine Ketones Urine Blood Urine Nitrate Urine Bilirubin Urine Urobilinogen Ur Leukocyte Esterase Urine RBC Urine WBC Ur Epithelial Cells Urine Bacteria Urine Eosinophils Ur Random Creatinine Ur Random Calcium 11/03/18 11:47 WBC RBC Hgb Hct MCV MCH MCHC RDW Plt Count MPV Neut % (Auto) Lymph % (Auto) [place] % (Auto) Eos % (Auto) Baso % (Auto) Lymph # (Auto) [place] # (Auto) Eos # (Auto) Baso # (Auto) Absolute Neuts (auto) PT INR APTT Sodium Potassium Chloride Carbon Dioxide Anion Gap BUN Creatinine Est GFR ( Amer) Est GFR (Non-Af Amer) Random Glucose Uric Acid Calcium Ionized Calcium Phosphorus Magnesium Total Bilirubin AST ALT Alkaline Phosphatase Lactate Dehydrogenase Total Creatine Kinase CK-MB (CK-2) CK-MB (CK-2) % Troponin I Total Protein Albumin Globulin Albumin/Globulin Ratio Triglycerides Cholesterol LDL Cholesterol Direct HDL Cholesterol Amylase Lipase 1175 H Vitamin B12 25-OH Vitamin D Total Folate Free T4 Thyroxine (T4) Free T3 pg/mL TSH 3rd Generation PTH w/Ion &Tot Calcium Cortisol AM Sample Urine Color Urine Appearance Urine pH Ur Specific [place] Urine Protein Urine Glucose (UA) Urine Ketones Urine Blood Urine Nitrate Urine Bilirubin Urine Urobilinogen Ur Leukocyte Esterase Urine RBC Urine WBC Ur Epithelial Cells Urine Bacteria Urine Eosinophils Ur Random Creatinine Ur Random Calcium EKG/Cardiology Studies: Cardiology / EKG Studies 11/03/18 06:00 EKG [ELECTROCARDIOGRAM] Routine Comment: Reason For Exam: prolonged QT Critical Care Progress Note - Nutrition Nutrition: Nutrition Category Date Time Status Heart Healthy Diet [DIET] Diets 11/02/18 Dinner Active Attending/Attestation - Attestation I have personally seen and examined this patient.: Yes I have fully participated in the care of the patient.: Yes I have reviewed all pertinent clinical information: Yes Notes (Text): 11/03/18 16:[address] King note
[2018-11-03 08:07] LABS: ALB/GLOB RATIO 1.1 (1.1-1.8); ALBUMIN 2.6 g/dL (3.0-4.8); ALT/SGPT 92 U/L (7-56); AST/SGOT 91 U/L (14-36); BLOOD UREA NITROGEN 57 mg/dL (7-21); CALCIUM 4.6 mg/dL (8.4-10.5); GFR NON-AFRICAN AMERICAN 6; HDL CHOLESTEROL 33 mg/dL (29-60)
[2018-11-03] MEDS ORDERED: Sodium Chloride 0.9% 1,000 ML IV SCH (08:14)
[2018-11-03] MEDS ORDERED: Sodium Bicarbonate 8.4% 150 MEQ in Dextrose 5% In Water 1,000 ML IV SCH (08:15)
--- NOTE | 2018-11-03 08:28 | CP.PCM.CON ---
History of Present Illness - History of Present Illness History of Present Illness: PGY-[address] Mario Claire consult: Severe Hypocalcimeia Ms. Sanders, 68F, with PMH stage 4 renal cell carcinoma (s/p L nephrectomy and spinal tumor resection, last chemo 3 days ago), HTN, and HLD presented to ED c/o generalized weakness, fatigue and loss of appetite x 4 days. Since Wednesday, pt started to have N/V/D. All improved except weakness/fatigue worsened. She took oral chemo pill daily since Apr 2018, had baseline mouth sore and diarrhea. However, since wednesday, she had new different symptoms of N/V/D and subjective fever. Poor appeptite but no noted decrease urine at home. At baseline, Cre 1.2/GFR 45 (September 2018). Baseline PTH 154 (Apr 2018), 25-oh-Vit D 50, TSH 3.8, T4 8, T3 1. As for her cancer, she had a neck mass, bladder mass, sacral mass, and lung nodules. Both neck and bladder mass were surgically removed. In ED, she was noted to be hypotensive (78/48) and severely hypocalcemic (4) with EKG changes (prolong QT @ 519), prompting ICU admission. Mg was 1.1. Her Creatinine on admission was 11 and trops elevated at 0.27 In ICU, pt started levophed gtt. She received Ca Glu IV and Mg IV. Started Calcium carbonate 600 BID, calcitriol 0.25 mcg BID, Sevelamer 800 AC. This AM, Ca 4.6, albumin 2.6 (corrected Ca 5.7). Now pening Ionized ca, Uca/cr, total protein, PTH, Vit D level. She is noted to be oliguric and on NS@250 fluid challenge ROS: (+) xerostomia (+) perioral numbness (+) hand tingling, (+) leg cramps at home Denies fever/chills, body aches, CP, SOB, current abd pain/nausea/vomiting/diarrhea, urinary complaints, PRATER, changes in vision, or recent sick contacts. PMD: Dr. Mcclelland Heme/Onc: Dr Emanuel, [facility] PMH: Renal cell carcinoma, stage 4 (s/p L nephrectomy and spinal tumor resection, last chemo 3 days ago) she had a neck mass, bladder mass, sacral mass, and lung nodules. Both neck and bladder mass were surgically removed. HTN/HLD PSH: L nephrectomy spinal tumor resection FH: [place] SH: Denies ever smoke Social ETOH, last drink 1 year ago Live at home with , good support system Allergies: NKA Home medications: Crestor 10 mg daily, Zetia 10 mg daily, valsartan 320 mg daily, Norvasc 10 mg daily, Gabapentin 100 mg TID Past Patient History - Infectious Disease Hx of Infectious Diseases: None - Past Social History Smoking Status: Never Smoked - CARDIAC Hx Cardiac Disorders: No Hx Pacemaker: No - PULMONARY Hx Respiratory Disorders: No - NEUROLOGICAL Hx Neurological Disorder: No Hx Paralysis: No - HEENT Hx HEENT Problems: No - RENAL Hx Chronic Kidney Disease: Yes Other/Comment: kidney CA - ENDOCRINE/METABOLIC Hx Endocrine Disorders: No - HEMATOLOGICAL/ONCOLOGICAL Hx Blood Transfusions: No - INTEGUMENTARY Hx Dermatological Problems: No - MUSCULOSKELETAL/RHEUMATOLOGICAL Hx Musculoskeletal Disorders: No - GASTROINTESTINAL Hx Gastrointestinal Disorders: No - GENITOURINARY/GYNECOLOGICAL Hx Genitourinary Disorders: No - PSYCHIATRIC Hx Psychophysiologic Disorder: No Hx Emotional Abuse: No Hx Physical Abuse: No Hx Substance Use: No - SURGICAL HISTORY Other/Comment: left nephrectomy. spine surgery - ANESTHESIA Hx Anesthesia: Yes Hx Anesthesia Reactions: No Hx Malignant Hyperthermia: No Meds Allergies/Adverse Reactions: Allergies Allergy/AdvReac Type Severity Reaction Status Date / Time No Known Allergies Allergy Verified 10/29/15 10:23 - Medications Medications: Current Medications Calcitriol (Rocaltrol) 0.25 mcg PO ONCE ONE Stop: 11/03/18 20:27 Calcitriol (Rocaltrol) 0.25 mcg PO BID [facility] Stop: 11/06/18 10:01 Calcium Carbonate (Caltrate) 600 mg PO BID [facility] Last Admin: 11/02/18 18:16 Dose: 600 mg Al Hydrox/Mg Hydrox/Simethicone 30 ml/Diphenhydramine HCl 75 mg/Lidocaine 30 ml 0 ml PO Q2H PRN PRN Reason: Mouth/Throat Pain Last Admin: 11/02/18 18:57 Dose: 15 isabel Heparin Sodium (Porcine) (Heparin) 5,000 units SC Q8 [facility]; Protocol Last Admin: 11/03/18 06:06 Dose: 5,000 units NOREPINEPHRINE BIT/0.9 % NACL (Levophed 4 Mg/ 250 Ml Ns Premixed) 4 mg in 250 mls @ 15 mls/hr IV .[id number] PRN; Protocol PRN Reason: TITRATE PER MD ORDER Last Titration: 11/02/18 20:46 Dose: 6 mcg/min, 22.5 mls/hr Sodium Chloride (Sodium Chloride 0.9%) 1,000 mls @ 125 mls/hr IV .Q8H [facility] Last Admin: 11/03/18 08:18 Dose: 125 mls/hr Sodium Bicarbonate 150 meq/ (Dextrose) 1,150 mls @ 125 mls/hr IV .Q9H12M [facility] Stop: 11/03/18 16:14 Levothyroxine Sodium (Synthroid) 25 mcg PO 0600 [facility] Sevelamer HCl (Renagel) 800 mg PO AC [facility] Last Admin: 11/03/18 08:17 Dose: 800 mg Vitamin A (Vitamin A & D Oint Ud Foilpak) 1 ea TOP Q6 PRN PRN Reason: Apply to dry lips Last Admin: 11/02/18 13:50 Dose: 1 ea Physical Exam - Constitutional Appears: No Acute Distress - Head Exam Head Exam: NORMAL INSPECTION, NORMOCEPHALIC - Eye Exam Eye Exam: EOMI, Normal appearance, PERRL. absent: Scleral icterus Pupil Exam: NORMAL ACCOMODATION - ENT Exam ENT Exam: Mucous Membranes Moist - Neck Exam Neck exam: Positive for: Normal Inspection - Respiratory Exam Respiratory Exam: NORMAL BREATHING PATTERN. absent: Rales, Rhonchi, Wheezes - Cardiovascular Exam Cardiovascular Exam: REGULAR RHYTHM, +S1, +S2 - GI/Abdominal Exam GI & Abdominal Exam: Hyperactive Bowel Sounds, Soft. absent: Firm, Guarding, Tenderness - Extremities Exam Extremities exam: Positive for: pedal pulses present. Negative for: calf tenderness - Back Exam Back exam: absent: CVA tenderness (L), CVA tenderness (R) - Neurological Exam Neurological exam: Alert, CN II-XII Intact - Psychiatric Exam Psychiatric exam: Normal Affect, Normal Mood - Skin Skin Exam: Dry, Warm Results - Vital Signs Recent Vital Signs: Last Vital Signs Temp 99.1 F 11/03/18 07:21 Pulse 88 11/03/18 07:21 Resp 15 11/03/18 07:20 BP 123/66 11/03/18 07:00 Pulse Ox 98 11/03/18 07:21 - Labs Result Diagrams: 11/03/18 11:25 11/03/18 15:50 Labs: Laboratory Results - last 24 hr 11/02/18 11/02/18 11/02/18 07:58 10:54 12:15 WBC RBC Hgb Hct MCV MCH MCHC RDW Plt Count MPV Neut % (Auto) Lymph % (Auto) [place] % (Auto) Eos % (Auto) Baso % (Auto) Lymph # (Auto) [place] # (Auto) Eos # (Auto) Baso # (Auto) Absolute Neuts (auto) PT INR APTT pO2 VBG pH VBG pCO2 VBG HCO3 VBG Total CO2 VBG O2 Sat (Calc) VBG Base Excess VBG Potassium Glucose Lactate FiO2 Sodium 138 Potassium 3.3 L Chloride 99 Carbon Dioxide 14 L Anion Gap 28 H BUN 64 H Creatinine 10.0 H* Est GFR ( Amer) 5 Est GFR (Non-Af Amer) 4 Random Glucose 83 Calcium 4.0 L* Phosphorus Magnesium Total Bilirubin 0.6 AST 113 H ALT 108 H Alkaline Phosphatase 74 Total Creatine Kinase CK-MB (CK-2) CK-MB (CK-2) % Troponin I 0.27 H* Total Protein 5.4 L Albumin 3.8 Globulin 2.4 Albumin/Globulin Ratio 1.6 Triglycerides Cholesterol LDL Cholesterol Direct HDL Cholesterol Amylase Lipase 25-OH Vitamin D Total 28.1 L TSH 3rd Generation Venous Blood Potassium Urine Color Urine Appearance Urine pH Ur Specific Byars Urine Protein Urine Glucose (UA) Urine Ketones Urine Blood Urine Nitrate Urine Bilirubin Urine Urobilinogen Ur Leukocyte Esterase Urine RBC Urine WBC Ur Epithelial Cells Urine Bacteria Urine Eosinophils Ur Random Creatinine 220 U Random Total Protein Ur Random Calcium 11/02/18 11/02/18 11/02/18 12:15 12:30 13:30 WBC RBC Hgb Hct MCV MCH MCHC RDW Plt Count MPV Neut % (Auto) Lymph % (Auto) [place] % (Auto) Eos % (Auto) Baso % (Auto) Lymph # (Auto) [place] # (Auto) Eos # (Auto) Baso # (Auto) Absolute Neuts (auto) PT INR APTT pO2 31 VBG pH 7.26 L VBG pCO2 35.0 L VBG HCO3 15.7 L VBG Total CO2 16.8 L VBG O2 Sat (Calc) 49.9 VBG Base Excess -10.4 L VBG Potassium 3.5 L Glucose 82 Lactate 1.4 FiO2 21.0 Sodium 134.0 133 Potassium 3.5 L Chloride 95.0 L 93 L Carbon Dioxide 16 L Anion Gap 27 H BUN 72 H Creatinine 11.0 H* Est GFR ( Amer) 4 Est GFR (Non-Af Amer) 3 Random Glucose 79 Calcium 4.3 L* Phosphorus 16.1 H Magnesium 1.1 L Total Bilirubin AST ALT Alkaline Phosphatase Total Creatine Kinase CK-MB (CK-2) CK-MB (CK-2) % Troponin I 0.25 H* Total Protein Albumin Globulin Albumin/Globulin Ratio Triglycerides Cholesterol LDL Cholesterol Direct HDL Cholesterol Amylase Lipase 25-OH Vitamin D Total TSH 3rd Generation Venous Blood Potassium 3.5 L Urine Color Yellow Urine Appearance Sl cloudy Urine pH 5.5 Ur Specific Byars 1.025 Urine Protein 100 H Urine Glucose (UA) Negative Urine Ketones Negative Urine Blood Moderate H Urine Nitrate Negative Urine Bilirubin Negative Urine Urobilinogen 0.2 Ur Leukocyte Esterase Negative Urine RBC 5 - 10 H Urine WBC 5 - 10 H Ur Epithelial Cells 4 - 5 Urine Bacteria Mod Urine Eosinophils Ur Random Creatinine U Random Total Protein Ur Random Calcium 11/02/18 11/02/18 11/02/18 13:30 13:30 14:00 WBC RBC Hgb Hct MCV MCH MCHC RDW Plt Count MPV Neut % (Auto) Lymph % (Auto) [place] % (Auto) Eos % (Auto) Baso % (Auto) Lymph # (Auto) [place] # (Auto) Eos # (Auto) Baso # (Auto) Absolute Neuts (auto) PT INR APTT pO2 VBG pH VBG pCO2 VBG HCO3 VBG Total CO2 VBG O2 Sat (Calc) VBG Base Excess VBG Potassium Glucose Lactate FiO2 Sodium Potassium Chloride Carbon Dioxide Anion Gap BUN Creatinine Est GFR ( Amer) Est GFR (Non-Af Amer) Random Glucose Calcium Phosphorus Magnesium Total Bilirubin AST ALT Alkaline Phosphatase Total Creatine Kinase CK-MB (CK-2) CK-MB (CK-2) % Troponin I Total Protein Albumin Globulin Albumin/Globulin Ratio Triglycerides Cholesterol LDL Cholesterol Direct HDL Cholesterol Amylase Lipase 25-OH Vitamin D Total TSH 3rd Generation Venous Blood Potassium Urine Color Urine Appearance Urine pH Ur Specific Byars Urine Protein Urine Glucose (UA) Urine Ketones Urine Blood Urine Nitrate Urine Bilirubin Urine Urobilinogen Ur Leukocyte Esterase Urine RBC Urine WBC Ur Epithelial Cells Urine Bacteria Urine Eosinophils Negative Ur Random Creatinine U Random Total Protein 81 Ur Random Calcium < 1.0 11/02/18 11/02/18 11/02/18 16:00 16:00 21:26 WBC RBC Hgb Hct MCV MCH MCHC RDW Plt Count MPV Neut % (Auto) Lymph % (Auto) [place] % (Auto) Eos % (Auto) Baso % (Auto) Lymph # (Auto) [place] # (Auto) Eos # (Auto) Baso # (Auto) Absolute Neuts (auto) PT INR APTT pO2 VBG pH VBG pCO2 VBG HCO3 VBG Total CO2 VBG O2 Sat (Calc) VBG Base Excess VBG Potassium Glucose Lactate FiO2 Sodium 131 L 131 L Potassium 3.0 L 2.6 L* Chloride 94 L 96 L Carbon Dioxide 13 L 19 L Anion Gap 27 H 18 BUN 72 H 67 H Creatinine 10.5 H* 8.9 H* Est GFR ( Amer) 4 5 Est GFR (Non-Af Amer) 4 4 Random Glucose 166 H 80 Calcium 4.2 L* 4.2 L* Phosphorus 13.8 H 9.2 H Magnesium 1.8 1.4 L Total Bilirubin AST ALT Alkaline Phosphatase Total Creatine Kinase 9379 H CK-MB (CK-2) 13.3 H CK-MB (CK-2) % 0.1 L Troponin I 0.20 H* 0.19 H* Total Protein Albumin Globulin Albumin/Globulin Ratio Triglycerides Cholesterol LDL Cholesterol Direct HDL Cholesterol Amylase 92 Lipase 511 H 25-OH Vitamin D Total TSH 3rd Generation Venous Blood Potassium Urine Color Urine Appearance Urine pH Ur Specific Byars Urine Protein Urine Glucose (UA) Urine Ketones Urine Blood Urine Nitrate Urine Bilirubin Urine Urobilinogen Ur Leukocyte Esterase Urine RBC Urine WBC Ur Epithelial Cells Urine Bacteria Urine Eosinophils Ur Random Creatinine U Random Total Protein Ur Random Calcium 11/03/18 11/03/18 11/03/18 01:08 05:30 05:30 WBC 3.9 L D RBC 2.75 L Hgb 10.1 L D Hct 29.2 L MCV 106.2 H MCH 36.7 H MCHC 34.6 RDW 15.0 H Plt Count 130 MPV 10.1 Neut % (Auto) 71.4 H Lymph % (Auto) 21.6 L [place] % (Auto) 6.2 H Eos % (Auto) 0.5 L Baso % (Auto) 0.3 Lymph # (Auto) 0.8 L [place] # (Auto) 0.2 Eos # (Auto) 0.0 Baso # (Auto) 0.01 Absolute Neuts (auto) 2.78 PT INR APTT pO2 VBG pH VBG pCO2 VBG HCO3 VBG Total CO2 VBG O2 Sat (Calc) VBG Base Excess VBG Potassium Glucose Lactate FiO2 Sodium 132 135 Potassium 3.6 3.8 Chloride 100 104 Carbon Dioxide 18 L 18 L Anion Gap 18 17 BUN 62 H 57 H Creatinine 8.0 H* 7.1 H Est GFR ( Amer) 6 7 Est GFR (Non-Af Amer) 5 6 Random Glucose 93 89 Calcium 4.5 L* 4.6 L* Phosphorus 8.1 H 6.8 H Magnesium 2.3 H 2.0 Total Bilirubin 0.8 AST 91 H ALT 92 H Alkaline Phosphatase 76 Total Creatine Kinase CK-MB (CK-2) CK-MB (CK-2) % Troponin I 0.17 H* Total Protein 5.0 L Albumin 2.6 L Globulin 2.4 Albumin/Globulin Ratio 1.1 Triglycerides 232 H Cholesterol 173 LDL Cholesterol Direct 101 HDL Cholesterol 33 Amylase Lipase 25-OH Vitamin D Total TSH 3rd Generation Venous Blood Potassium Urine Color Urine Appearance Urine pH Ur Specific Byars Urine Protein Urine Glucose (UA) Urine Ketones Urine Blood Urine Nitrate Urine Bilirubin Urine Urobilinogen Ur Leukocyte Esterase Urine RBC Urine WBC Ur Epithelial Cells Urine Bacteria Urine Eosinophils Ur Random Creatinine U Random Total Protein Ur Random Calcium 11/03/18 11/03/18 05:30 05:30 WBC RBC Hgb Hct MCV MCH MCHC RDW Plt Count MPV Neut % (Auto) Lymph % (Auto) [place] % (Auto) Eos % (Auto) Baso % (Auto) Lymph # (Auto) [place] # (Auto) Eos # (Auto) Baso # (Auto) Absolute Neuts (auto) PT 16.5 H INR 1.46 APTT 35.5 pO2 VBG pH VBG pCO2 VBG HCO3 VBG Total CO2 VBG O2 Sat (Calc) VBG Base Excess VBG Potassium Glucose Lactate FiO2 Sodium Potassium Chloride Carbon Dioxide Anion Gap BUN Creatinine Est GFR ( Amer) Est GFR (Non-Af Amer) Random Glucose Calcium Phosphorus Magnesium Total Bilirubin AST ALT Alkaline Phosphatase Total Creatine Kinase CK-MB (CK-2) CK-MB (CK-2) % Troponin I Total Protein Albumin Globulin Albumin/Globulin Ratio Triglycerides Cholesterol LDL Cholesterol Direct HDL Cholesterol Amylase Lipase 25-OH Vitamin D Total TSH 3rd Generation 39.40 H Venous Blood Potassium Urine Color Urine Appearance Urine pH Ur Specific [place] Urine Protein Urine Glucose (UA) Urine Ketones Urine Blood Urine Nitrate Urine Bilirubin Urine Urobilinogen Ur Leukocyte Esterase Urine RBC Urine WBC Ur Epithelial Cells Urine Bacteria Urine Eosinophils Ur Random Creatinine U Random Total Protein Ur Random Calcium Assessment & Plan - Assessment and Plan (Free Text) Plan: Severe hypocalcemia likely due to malabsorption syndrome from acute on chronic diarrhea - Serial BMP, Mg, Phos - Ca IV infusion - If symptomatic, IV Ca Glu PRN - Goal is to transit to PO Ca/Vit D if tolerated - If CKD, caution in replenishing Mg R/O Other Etiology: 1. had ruled out Tumor lysis syndrome, hypercatabolic state - low risk in RCC but (+) [place] definition - uric acid is not significantly elevated 2. R/O CKD, for impaired Vit D metabolism? - At baseline, Cre 1.2/GFR 45 (September 2018). 3. R/O CLD, for low albumin and Vit D metabolism abnormality - Pending Total Ca vs ionized Ca 4. R/O Low Vit D - Baseline (Apr 2018) 25-oh-Vit D 50 5. R/O Parathyroid etiology - If PTH is low, then likely primary - If PTH is nigh, pseudohypoPTH - Baseline PTH 154 (Apr 2018) Hypothyroidism, TSH 39, likely autoimmune - IV synthroid 100 x 3 days - pending repeat TFT, AM cortisol, antibodies - Baseline TSH 3.8, T4 8, T3 1. (Mar 2018) s/r/d/w Dr Martin
--- NOTE | 2018-11-03 08:51 | CP.PCM.PN ---
<Efraín John - Last Filed: 11/03/18 14:01> Subjective - Date & Time of Evaluation Date of Evaluation: 11/03/18 Time of Evaluation: 08:47 - Subjective Subjective: Curtis John PGY2 - Progress Note for Dr. Gary Patient seen and examined this AM. No acute events reported overnight. Patient reports that she is feels much better from yesterday. Her fatigue has improved, her oral ulcers and pain in her mouth has improved. She denies palpitations, chest pain, shortness of breath, abdominal discomfort, nausea, vomiting, fever, chills. Discussed with family regarding patient care and planned management going forward. Objective - Vital Signs/Intake and Output Vital Signs (last 24 hours): Temp Pulse Resp BP Pulse Ox 99.1 F 88 15 123/66 98 11/03/18 07:21 11/03/18 07:21 11/03/18 07:20 11/03/18 07:00 11/03/18 07:21 Intake and Output: 11/03/18 11/03/18 06:59 18:59 Intake Total 90 Balance 90 - Medications Medications: Current Medications Calcitriol (Rocaltrol) 0.25 mcg PO ONCE ONE Stop: 11/03/18 20:27 Calcitriol (Rocaltrol) 0.25 mcg PO BID [facility] Stop: 11/06/18 10:01 Calcium Carbonate (Caltrate) 600 mg PO BID [facility] Last Admin: 11/02/18 18:16 Dose: 600 mg Al Hydrox/Mg Hydrox/Simethicone 30 ml/Diphenhydramine HCl 75 mg/Lidocaine 30 ml 0 ml PO Q2H PRN PRN Reason: Mouth/Throat Pain Last Admin: 11/02/18 18:57 Dose: 15 isabel Heparin Sodium (Porcine) (Heparin) 5,000 units SC Q8 [facility]; Protocol Last Admin: 11/03/18 06:06 Dose: 5,000 units NOREPINEPHRINE BIT/0.9 % NACL (Levophed 4 Mg/ 250 Ml Ns Premixed) 4 mg in 250 mls @ 15 mls/hr IV .[id number] PRN; Protocol PRN Reason: TITRATE PER MD ORDER Last Titration: 11/02/18 20:46 Dose: 6 mcg/min, 22.5 mls/hr Sodium Chloride (Sodium Chloride 0.9%) 1,000 mls @ 125 mls/hr IV .Q8H [facility] Last Admin: 11/03/18 08:18 Dose: 125 mls/hr Sodium Bicarbonate 150 meq/ (Dextrose) 1,150 mls @ 125 mls/hr IV .Q9H12M [facility] Stop: 11/03/18 16:14 Levothyroxine Sodium (Synthroid) 25 mcg PO 0600 [facility] Sevelamer HCl (Renagel) 800 mg PO AC [facility] Last Admin: 11/03/18 08:17 Dose: 800 mg Vitamin A (Vitamin A & D Oint Ud Foilpak) 1 ea TOP Q6 PRN PRN Reason: Apply to dry lips Last Admin: 11/02/18 13:50 Dose: 1 ea - Labs Labs: 11/03/18 05:30 11/03/18 05:30 PT 16.5 SECONDS (9.4-12.5) H 11/03/18 05:30 INR 1.46 11/03/18 05:30 APTT 35.5 Seconds (26.9-38.3) 11/03/18 05:30 - Constitutional Appears: No Acute Distress - Head Exam Head Exam: ATRAUMATIC, NORMOCEPHALIC - Eye Exam Eye Exam: EOMI, PERRL - ENT Exam Additional comments: mucous membranes improved from yesterday, moist - Neck Exam Neck Exam: Full ROM - Respiratory Exam Respiratory Exam: Clear to Ausculation Bilateral, NORMAL BREATHING PATTERN - Cardiovascular Exam Cardiovascular Exam: REGULAR RHYTHM, +S1, +S2 - GI/Abdominal Exam GI & Abdominal Exam: Soft, Normal Bowel Sounds. absent: Guarding, Rigid, Tenderness - Extremities Exam Extremities Exam: Full ROM. absent: Calf Tenderness, Pedal Edema - Neurological Exam Neurological Exam: Alert, Awake, CN II-XII Intact, Oriented x3 Additional comments: patient reports improved numbness in legs and facial area, motor and sensory grossly intact, patient moving all four extremities past midline - Psychiatric Exam Psychiatric exam: Normal Affect, Normal Mood - Skin Skin Exam: Dry, Warm Assessment and Plan - Assessment and Plan (Free Text) Assessment: #LAURA #Anion Gap Metabolic Acidosis #Severe Hypocalcemia #Hypokalemia #Hyperphosphotemia #Hypomagnesium #Elevated CK #Elevated Lipase #Elevated Troponin #Prolonged QT #Hypotensive #Macrocytosis #Renal Cell Carcinoma s/p Left nephrectomy Patient reports improved symptoms from admission. Her electrolytes have improved overnight but continue to have abnormalities. Patient continues to recieve IV fluids, will continue with IV sodium bicarb for one more bag. Patient calcium has shown some improvement over the past 24 hours. A repeat EKG this morning showed improvement in her prolonged QT. Will continue to monitor calcium level and QT length with EKG. In terms of her hypocalcemia her magnesium has been corrected, hyperphosphatemia improved, albumin remains normal. Will follow up PTH level. Continue calcitriol and calcium gluconate IV for supplemental. Continue renagel for hyperphosphatemia. Patient acidosis has improved with IV fluids and sodium bicarb. Patient blood pressure continues to be stable while on levophed gtt. Will speak with ICU team regarding the titration off of the gtt. Continue to maintain MAP >65mmHg. Her renal function has improved since admission as well. Will continue to monitor her in ICU for the next 24 hours while awaiting labs and continued rehydration. Endocrinology has been consulted, will follow up recommendations. Patient urine output has been low but will continue to watch as continued rehydration. Troponins have peaked and continue to downtrend. Patient noted to have elevated TSH signaling hypothyroid, will start on a low dose of synthroid. Further recommendations per Dr. Gary. GI and DVT ppx. Patient seen, case and plan discussed with Dr. Gary <Nate Gary - Last Filed: 11/03/18 20:24> Objective - Vital Signs/Intake and Output Vital Signs (last 24 hours): Temp Pulse Resp BP Pulse Ox 99.1 F 86 20 107/50 L 98 11/03/18 18:24 11/03/18 18:24 11/03/18 18:20 11/03/18 18:00 11/03/18 18:24 Intake and Output: 11/03/18 11/04/18 18:59 06:59 Intake Total 3392 Output Total 2250 Balance 1142 - Medications Medications: Current Medications Calcitriol (Rocaltrol) 0.25 mcg PO ONCE ONE Stop: 11/03/18 20:27 Calcitriol (Rocaltrol) 0.25 mcg PO BID [facility] Stop: 11/06/18 10:01 Last Admin: 11/03/18 18:16 Dose: 0.25 mcg Calcium Carbonate (Caltrate) 600 mg PO BID [facility] Last Admin: 11/03/18 18:15 Dose: 600 mg Al Hydrox/Mg Hydrox/Simethicone 30 ml/Diphenhydramine HCl 75 mg/Lidocaine 30 ml 0 ml PO Q2H PRN PRN Reason: Mouth/Throat Pain Last Admin: 11/02/18 18:57 Dose: 15 isabel Heparin Sodium (Porcine) (Heparin) 5,000 units SC Q8 [facility]; Protocol Last Admin: 11/03/18 13:03 Dose: 5,000 units Hydrocortisone Sodium Succinate (Solu-Cortef) 50 mg IVP Q6 [facility] Last Admin: 11/03/18 18:14 Dose: 50 mg NOREPINEPHRINE BIT/0.9 % NACL (Levophed 4 Mg/ 250 Ml Ns Premixed) 4 mg in 250 mls @ 15 mls/hr IV .[id number] PRN; Protocol PRN Reason: TITRATE PER MD ORDER Last Titration: 11/03/18 18:41 Dose: 1 mcg/min, 3.75 mls/hr Calcium Gluconate 1,000 mg/ (Sodium Chloride) 1,010 mls @ 75 mls/hr IV .[id number] [facility] Levothyroxine Sodium (Synthroid) 100 mcg IVP DAILY [facility] Midodrine (Proamatine) 10 mg PO TID [facility] Last Admin: 11/03/18 18:14 Dose: 10 mg Vitamin A (Vitamin A & D Oint Ud Foilpak) 1 ea TOP Q6 PRN PRN Reason: Apply to dry lips Last Admin: 11/02/18 13:50 Dose: 1 ea - Labs Labs: 11/03/18 11:25 11/03/18 15:50 PT 16.5 SECONDS (9.4-12.5) H 11/03/18 05:30 INR 1.46 11/03/18 05:30 APTT 35.5 Seconds (26.9-38.3) 11/03/18 05:30 Assessment and Plan - Assessment and Plan (Free Text) Assessment: Pt seen and examined by me. I have reviewed the note of the medical case manager and I agree with it. I have discussed the assessment and plan with the resident. I have reviewed the medications and the last labs.
[2018-11-03 09:09] LABS: FREE T4 0.92 ng/dL (0.78-2.19)
[2018-11-03 09:12] LABS: CK MB% 0.1 % (2.5-3.0); CK-MB 8.3 ng/mL (0.0-3.6)
--- NOTE | 2018-11-03 09:41 | CARD ---
APPROVED REPORT Date of service: 11/03/2018 EKG Measurement Heart [id number] <Conclusion> Normal sinus rhythm Low voltage QRS Nonspecific ST-T abnormalities Abnormal ECG
[2018-11-03] MEDS ORDERED: Levothyroxine 100 mcg (0.1 mg) Inj IVP ONE (10:30)
--- NOTE | 2018-11-03 11:12 | CP.PCM.APN ---
Subjective - Date & Time of Evaluation Date of Evaluation: 11/03/18 Time of Evaluation: 11:00 - Subjective Subjective: pt seen and examined at bedside. pt sitting up with family at her bedside in NAD Review of Systems - Review of Systems All systems: reviewed and no additional remarkable complaints except Objective - Vital Signs/Intake and Output Vital Signs (last 24 hours): Temp Pulse Resp BP Pulse Ox 99.5 F 80 20 115/40 L 96 11/03/18 08:51 11/03/18 08:51 11/03/18 08:50 11/03/18 08:30 11/03/18 08:51 Intake and Output: 11/03/18 11/03/18 06:59 18:59 Intake Total 90 Balance 90 - Medications Medications: Current Medications Calcitriol (Rocaltrol) 0.25 mcg PO ONCE ONE Stop: 11/03/18 20:27 Calcitriol (Rocaltrol) 0.25 mcg PO BID TEODORO Stop: 11/06/18 10:01 Last Admin: 11/03/18 09:25 Dose: 0.25 mcg Calcium Carbonate (Caltrate) 600 mg PO BID TEODORO Last Admin: 11/03/18 09:26 Dose: 600 mg Al Hydrox/Mg Hydrox/Simethicone 30 ml/Diphenhydramine HCl 75 mg/Lidocaine 30 ml 0 ml PO Q2H PRN PRN Reason: Mouth/Throat Pain Last Admin: 11/02/18 18:57 Dose: 15 isabel Heparin Sodium (Porcine) (Heparin) 5,000 units SC Q8 TEODORO; Protocol Last Admin: 11/03/18 06:06 Dose: 5,000 units Hydrocortisone Sodium Succinate (Solu-Cortef) 50 mg IVP Q6 TEODORO Last Admin: 11/03/18 10:49 Dose: 50 mg NOREPINEPHRINE BIT/0.9 % NACL (Levophed 4 Mg/ 250 Ml Ns Premixed) 4 mg in 250 mls @ 15 mls/hr IV .[id number] PRN; Protocol PRN Reason: TITRATE PER MD ORDER Last Titration: 11/02/18 20:46 Dose: 6 mcg/min, 22.5 mls/hr Sodium Chloride (Sodium Chloride 0.9%) 1,000 mls @ 125 mls/hr IV .Q8H TEODORO Last Admin: 11/03/18 08:18 Dose: 125 mls/hr Sodium Bicarbonate 150 meq/ (Dextrose) 1,150 mls @ 125 mls/hr IV .Q9H12M TEODORO Stop: 11/03/18 16:14 Last Admin: 11/03/18 10:20 Dose: 125 mls/hr Levothyroxine Sodium (Synthroid) 25 mcg PO 0600 TEODORO Last Admin: 11/03/18 08:52 Dose: 25 mcg Sevelamer HCl (Renagel) 800 mg PO AC TEODORO Last Admin: 11/03/18 08:17 Dose: 800 mg Vitamin A (Vitamin A & D Oint Ud Foilpak) 1 ea TOP Q6 PRN PRN Reason: Apply to dry lips Last Admin: 11/02/18 13:50 Dose: 1 ea - Labs Labs: 11/03/18 05:30 11/03/18 05:30 PT 16.5 SECONDS (9.4-12.5) H 11/03/18 05:30 INR 1.46 11/03/18 05:30 APTT 35.5 Seconds (26.9-38.3) 11/03/18 05:30 - Constitutional Appears: Non-toxic, No Acute Distress - Head Exam Head Exam: NORMAL INSPECTION - Respiratory Exam Respiratory Exam: Decreased Breath Sounds, NORMAL BREATHING PATTERN - Cardiovascular Exam Cardiovascular Exam: +S1, +S2 - GI/Abdominal Exam GI & Abdominal Exam: Soft - Skin Skin Exam: Dry, Intact Assessment and Plan - Assessment and Plan (Free Text) Plan: ITS Impressions Chest X-Ray 11/02/18 07:37 IMPRESSION: No active disease. Renal Ultrasound 11/02/18 13:55 IMPRESSION: Status post left nephrectomy. Unremarkable right renal sonogram. Abnormal Lab Results 11/02/18 11/02/18 11/02/18 10:54 12:15 12:15 WBC RBC Hgb Hct MCV MCH MCHC RDW Plt Count MPV Neut % (Auto) Lymph % (Auto) [place] % (Auto) Eos % (Auto) Baso % (Auto) Lymph # (Auto) [place] # (Auto) Eos # (Auto) Baso # (Auto) Absolute Neuts (auto) PT INR APTT pO2 31 VBG pH 7.26 L VBG pCO2 35.0 L VBG HCO3 15.7 L VBG Total CO2 16.8 L VBG O2 Sat (Calc) 49.9 VBG Base Excess -10.4 L VBG Potassium 3.5 L Sodium 134.0 Chloride 95.0 L Glucose 82 Lactate 1.4 FiO2 21.0 Potassium Carbon Dioxide Anion Gap BUN Creatinine Est GFR ( Amer) Est GFR (Non-Af Amer) Random Glucose Uric Acid Calcium Phosphorus Magnesium Total Bilirubin AST ALT Alkaline Phosphatase Lactate Dehydrogenase Total Creatine Kinase CK-MB (CK-2) CK-MB (CK-2) % Troponin I Total Protein Albumin Globulin Albumin/Globulin Ratio Triglycerides Cholesterol LDL Cholesterol Direct HDL Cholesterol Amylase Lipase 25-OH Vitamin D Total 28.1 L Free T4 Thyroxine (T4) TSH 3rd Generation Venous Blood Potassium 3.5 L Urine Color Urine Appearance Urine pH Ur Specific [place] Urine Protein Urine Glucose (UA) Urine Ketones Urine Blood Urine Nitrate Urine Bilirubin Urine Urobilinogen Ur Leukocyte Esterase Urine RBC Urine WBC Ur Epithelial Cells Urine Bacteria Urine Eosinophils Ur Random Creatinine 220 U Random Total Protein Ur Random Calcium 11/02/18 11/02/18 11/02/18 12:30 13:30 13:30 WBC RBC Hgb Hct MCV MCH MCHC RDW Plt Count MPV Neut % (Auto) Lymph % (Auto) [place] % (Auto) Eos % (Auto) Baso % (Auto) Lymph # (Auto) [place] # (Auto) Eos # (Auto) Baso # (Auto) Absolute Neuts (auto) PT INR APTT pO2 VBG pH VBG pCO2 VBG HCO3 VBG Total CO2 VBG O2 Sat (Calc) VBG Base Excess VBG Potassium Sodium 133 Chloride 93 L Glucose Lactate FiO2 Potassium 3.5 L Carbon Dioxide 16 L Anion Gap 27 H BUN 72 H Creatinine 11.0 H* Est GFR ( Amer) 4 Est GFR (Non-Af Amer) 3 Random Glucose 79 Uric Acid Calcium 4.3 L* Phosphorus 16.1 H Magnesium 1.1 L Total Bilirubin AST ALT Alkaline Phosphatase Lactate Dehydrogenase Total Creatine Kinase CK-MB (CK-2) CK-MB (CK-2) % Troponin I 0.25 H* Total Protein Albumin Globulin Albumin/Globulin Ratio Triglycerides Cholesterol LDL Cholesterol Direct HDL Cholesterol Amylase Lipase 25-OH Vitamin D Total Free T4 Thyroxine (T4) TSH 3rd Generation Venous Blood Potassium Urine Color Yellow Urine Appearance Sl cloudy Urine pH 5.5 Ur Specific [place] 1.025 Urine Protein 100 H Urine Glucose (UA) Negative Urine Ketones Negative Urine Blood Moderate H Urine Nitrate Negative Urine Bilirubin Negative Urine Urobilinogen 0.2 Ur Leukocyte Esterase Negative Urine RBC 5 - 10 H Urine WBC 5 - 10 H Ur Epithelial Cells 4 - 5 Urine Bacteria Mod Urine Eosinophils Ur Random Creatinine U Random Total Protein 81 Ur Random Calcium 11/02/18 11/02/18 11/02/18 13:30 14:00 16:00 WBC RBC Hgb Hct MCV MCH MCHC RDW Plt Count MPV Neut % (Auto) Lymph % (Auto) [place] % (Auto) Eos % (Auto) Baso % (Auto) Lymph # (Auto) [place] # (Auto) Eos # (Auto) Baso # (Auto) Absolute Neuts (auto) PT INR APTT pO2 VBG pH VBG pCO2 VBG HCO3 VBG Total CO2 VBG O2 Sat (Calc) VBG Base Excess VBG Potassium Sodium 131 L Chloride 94 L Glucose Lactate FiO2 Potassium 3.0 L Carbon Dioxide 13 L Anion Gap 27 H BUN 72 H Creatinine 10.5 H* Est GFR ( Amer) 4 Est GFR (Non-Af Amer) 4 Random Glucose 166 H Uric Acid Calcium 4.2 L* Phosphorus 13.8 H Magnesium 1.8 Total Bilirubin AST ALT Alkaline Phosphatase Lactate Dehydrogenase Total Creatine Kinase CK-MB (CK-2) CK-MB (CK-2) % Troponin I 0.20 H* Total Protein Albumin Globulin Albumin/Globulin Ratio Triglycerides Cholesterol LDL Cholesterol Direct HDL Cholesterol Amylase Lipase 25-OH Vitamin D Total Free T4 Thyroxine (T4) TSH 3rd Generation Venous Blood Potassium Urine Color Urine Appearance Urine pH Ur Specific [place] Urine Protein Urine Glucose (UA) Urine Ketones Urine Blood Urine Nitrate Urine Bilirubin Urine Urobilinogen Ur Leukocyte Esterase Urine RBC Urine WBC Ur Epithelial Cells Urine Bacteria Urine Eosinophils Negative Ur Random Creatinine U Random Total Protein Ur Random Calcium < 1.0 11/02/18 11/02/18 11/03/18 16:00 21:26 01:08 WBC RBC Hgb Hct MCV MCH MCHC RDW Plt Count MPV Neut % (Auto) Lymph % (Auto) [place] % (Auto) Eos % (Auto) Baso % (Auto) Lymph # (Auto) [place] # (Auto) Eos # (Auto) Baso # (Auto) Absolute Neuts (auto) PT INR APTT pO2 VBG pH VBG pCO2 VBG HCO3 VBG Total CO2 VBG O2 Sat (Calc) VBG Base Excess VBG Potassium Sodium 131 L 132 Chloride 96 L 100 Glucose Lactate FiO2 Potassium 2.6 L* 3.6 Carbon Dioxide 19 L 18 L Anion Gap 18 18 BUN 67 H 62 H Creatinine 8.9 H* 8.0 H* Est GFR ( Amer) 5 6 Est GFR (Non-Af Amer) 4 5 Random Glucose 80 93 Uric Acid Calcium 4.2 L* 4.5 L* Phosphorus 9.2 H 8.1 H Magnesium 1.4 L 2.3 H Total Bilirubin AST ALT Alkaline Phosphatase Lactate Dehydrogenase Total Creatine Kinase 9379 H CK-MB (CK-2) 13.3 H CK-MB (CK-2) % 0.1 L Troponin I 0.19 H* 0.17 H* Total Protein Albumin Globulin Albumin/Globulin Ratio Triglycerides Cholesterol LDL Cholesterol Direct HDL Cholesterol Amylase 92 Lipase 511 H 25-OH Vitamin D Total Free T4 Thyroxine (T4) TSH 3rd Generation Venous Blood Potassium Urine Color Urine Appearance Urine pH Ur Specific [place] Urine Protein Urine Glucose (UA) Urine Ketones Urine Blood Urine Nitrate Urine Bilirubin Urine Urobilinogen Ur Leukocyte Esterase Urine RBC Urine WBC Ur Epithelial Cells Urine Bacteria Urine Eosinophils Ur Random Creatinine U Random Total Protein Ur Random Calcium 11/03/18 11/03/18 11/03/18 05:30 05:30 05:30 WBC 3.9 L D RBC 2.75 L Hgb 10.1 L D Hct 29.2 L MCV 106.2 H MCH 36.7 H MCHC 34.6 RDW 15.0 H Plt Count 130 MPV 10.1 Neut % (Auto) 71.4 H Lymph % (Auto) 21.6 L [place] % (Auto) 6.2 H Eos % (Auto) 0.5 L Baso % (Auto) 0.3 Lymph # (Auto) 0.8 L [place] # (Auto) 0.2 Eos # (Auto) 0.0 Baso # (Auto) 0.01 Absolute Neuts (auto) 2.78 PT INR APTT pO2 VBG pH VBG pCO2 VBG HCO3 VBG Total CO2 VBG O2 Sat (Calc) VBG Base Excess VBG Potassium Sodium 135 Chloride 104 Glucose Lactate FiO2 Potassium 3.8 Carbon Dioxide 18 L Anion Gap 17 BUN 57 H Creatinine 7.1 H Est GFR ( Amer) 7 Est GFR (Non-Af Amer) 6 Random Glucose 89 Uric Acid Calcium 4.6 L* Phosphorus 6.8 H Magnesium 2.0 Total Bilirubin 0.8 AST 91 H ALT 92 H Alkaline Phosphatase 76 Lactate Dehydrogenase Total Creatine Kinase 6256 H CK-MB (CK-2) 8.3 H CK-MB (CK-2) % 0.1 L Troponin I Total Protein 5.0 L Albumin 2.6 L Globulin 2.4 Albumin/Globulin Ratio 1.1 Triglycerides 232 H Cholesterol 173 LDL Cholesterol Direct 101 HDL Cholesterol 33 Amylase Lipase 25-OH Vitamin D Total Free T4 Thyroxine (T4) TSH 3rd Generation 39.40 H Venous Blood Potassium Urine Color Urine Appearance Urine pH Ur Specific [place] Urine Protein Urine Glucose (UA) Urine Ketones Urine Blood Urine Nitrate Urine Bilirubin Urine Urobilinogen Ur Leukocyte Esterase Urine RBC Urine WBC Ur Epithelial Cells Urine Bacteria Urine Eosinophils Ur Random Creatinine U Random Total Protein Ur Random Calcium 11/03/18 11/03/18 11/03/18 05:30 07:00 09:20 WBC RBC Hgb Hct MCV MCH MCHC RDW Plt Count MPV Neut % (Auto) Lymph % (Auto) [place] % (Auto) Eos % (Auto) Baso % (Auto) Lymph # (Auto) [place] # (Auto) Eos # (Auto) Baso # (Auto) Absolute Neuts (auto) PT 16.5 H INR 1.46 APTT 35.5 pO2 VBG pH VBG pCO2 VBG HCO3 VBG Total CO2 VBG O2 Sat (Calc) VBG Base Excess VBG Potassium Sodium Chloride Glucose Lactate FiO2 Potassium Carbon Dioxide Anion Gap BUN Creatinine Est GFR ( Amer) Est GFR (Non-Af Amer) Random Glucose Uric Acid 9.0 H Calcium Phosphorus Magnesium Total Bilirubin AST ALT Alkaline Phosphatase Lactate Dehydrogenase 3914 H Total Creatine Kinase CK-MB (CK-2) CK-MB (CK-2) % Troponin I Total Protein Albumin Globulin Albumin/Globulin Ratio Triglycerides Cholesterol LDL Cholesterol Direct HDL Cholesterol Amylase Lipase 25-OH Vitamin D Total Free T4 0.92 Thyroxine (T4) 4.3 L TSH 3rd Generation Venous Blood Potassium Urine Color Urine Appearance Urine pH Ur Specific [place] Urine Protein Urine Glucose (UA) Urine Ketones Urine Blood Urine Nitrate Urine Bilirubin Urine Urobilinogen Ur Leukocyte Esterase Urine RBC Urine WBC Ur Epithelial Cells Urine Bacteria Urine Eosinophils Ur Random Creatinine U Random Total Protein Ur Random Calcium a/p 68 yr old with pmh sig for renal cell ca s/p nephrectomy, hld, spinal tumor was who being evaluated for c/o weakness found to have severe electrolyte derangement with critically low potassium of 2.6 and calcium levels 4.2 with elevated troponins now admitted for further mgmt with cardiology and endocrinology consultations. pt with IV sodium bicarb infusion and will continue mgmt in the CCU for acute LAURA , anion gap metabolic acidosis , hypocalcemia will continue to monitor clinical status BPCI/TIC - BPCIA/TIC Educated pt/family on BPCIA/CIR/Med to Bed Programs: N/A Flyers given, including CMS Beneficiary letter: N/A Pt/family verbalized understanding & agreed to program: N/A
[2018-11-03 11:37] LABS: EOS % 0.5 % (1.5-5.0); HEMOGLOBIN 9.9 g/dL (12.0-16.0); LYMPH # 0.8 (1.2-3.4); LYMPH % 19.2 % (22.0-35.0); MEAN CELL VOLUME 106.8 fl (80.0-105.0); MEAN CORPUSCULAR HEMOGLOBIN 37.2 pg (25.0-35.0); MEAN CORPUSCULAR HGB CONC 34.9 g/dl (31.0-37.0); MEAN PLATELET VOLUME 9.8 fl (7.0-11.0); MONO # 0.2 (0.1-0.6); MONO % 5.8 % (1.0-6.0); RBC 2.66 10^6/uL (3.5-6.1); WHITE BLOOD COUNT 4.1 10^3/uL (4.5-11.0)
[2018-11-03 11:56] LABS: CALCIUM 4.8 mg/dL (8.4-10.5)
[2018-11-03] MEDS ORDERED: SODIUM CHLORIDE 0.9% IV SCH (12:34)
[2018-11-03] MEDS ORDERED: CALCIUM GLUCONATE IV SCH (12:34)
[2018-11-03] MEDS: NOREPINEPHRINE BIT/0.9 % NACL 4 MG/250 ML BAG IV PRN (13:03)
[2018-11-03 13:34] LABS: FOLATE > 20.0 ng/mL
--- NOTE | 2018-11-03 14:04 | PN ---
DATE: 11/03/2018 SUBJECTIVE: The patient is seen and examined at bedside. She is comfortable. She talks full sentences. She is not in respiratory otherwise distress. OBJECTIVE: VITAL SIGNS: Temperature 99.5, heart rate 80, respiratory 20, oxygen saturation 96% on 2 liters nasal cannula. Blood pressure 115/40 (on 6 mcg per minute of Levophed). HEENT: Head and neck atraumatic. LUNGS: Clear to auscultation bilaterally. There is a Port-A-Cath present in the right anterior wall chest. HEART: Regular rate rhythm. S1 and S2 normal. ABDOMEN: Soft, nontender, nondistended. MUSCULOSKELETAL: No C/C/E. NEUROLOGIC: The patient moves all extremities spontaneously. SKIN: Moist. PSYCHIATRIC: The patient is alert, awake and oriented x3. LABORATORY DATA: WBC 4.1, hemoglobin 9.9, platelet count 128. Sodium 135, potassium 3.8, chloride 104, carbon dioxide 18 ((the patient is on bicarb drip) creatinine 7.1, down from 8, uric acid 9, calcium 4.6, AST 91, ALT 92, total bilirubin 0.8. She had a CPK 6256, down from 9679, troponin 0.17 (trending down from 0.19), lipase 511. TSH 39.4 up from 3.8. T4 4.3 (low), lactic acid 1.4, down from 2.3. Urine is negative for leukocyte esterase and nitrates. MEDICATIONS: Rocaltrol, calcium carbonate 600 mg p.o. twice a day, heparin 5000 subcu every 8 hours, hydrocortisone 50 mg IV every 6 hours, Synthroid 50 mcg IV x1 and Synthroid 25 mcg p.o. every morning and norepinephrine drip, Renagel with normal saline 125 mL/hour, bicarb 125 mL/hour, vitamin A and D topical. 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 intake with multiple and substantial electrolyte abnormalities. Electrolyte abnormalities were aggressively supplemented. The patient was started on IV fluids with resolution of lactic acidosis; however, the patient did still require vasopressor support with norepinephrine currently at 6 mcg per minute. Of note, the patient was taken prednisone 50 mg a day for about month which was discontinued several days prior to admission to this hospital. Recent chemotherapy, coupled with critical illness and abrupt stop of systemic steroids recently, makes possibility of relative adrenal insufficiency contributing or leading to hemodynamic instability seems likely or at least cannot be ruled out. I will start the patient on stress dose steroids (hydrocortisone 200 mg a day for now.). TSH was also found to be highly elevated and we will give a trial of Synthroid 50 mcg IV x1. I will start the patient on midodrine 10 mg p.o. t.i.d. while continuing IV fluids, stress dose steroids and IV synthroid. The patient's renal function substantially improved as well. Her troponin is trending down. No complaints of chest pain and the patient is mentating well. Her CPK is going down as well. Echocardiogram was ordered by cardiology service and will be followed up. Chest x-ray did not show any pneumothorax that otherwise would account for shock syndrome. Moderately elevated lipase may suggest chemical but not clinical pancreatitis as there is no abdominal pain. Patient appears too comfortable with improvement of end organ systems to consider SAP as a etiology of hypotension (by a way of distribtuive shock). We will continue trending lipase. I also have low suspicion for severe sepsis as the patient is afebrile and does not have leukocytosis. Mild leukopenia most likely related to recent chemotherapy. I will order procalcitonin. Blood culture was also ordered, and as of today (24 hours) negative. Chest x-ray as well as urinalysis did not show any suggestion of acute infectious disease. We will continue target euvolemic glycemia normothermia oxygen saturation more than 90%. We will continue with aggressively supplemented Dr. love. Of note QTC on EKG is going down with a continuous calcium supplementation. We will proceed with endocrinology consult. Addendum: NE requirement decrease to 3 mcg/min ccm time 40 min Blaise King MD URIEL
--- NOTE | 2018-11-03 16:04 | CARD ---
APPROVED REPORT Date of service: 11/03/2018 EXAM: Two-dimensional and M-mode echocardiogram with Doppler and color Doppler. INDICATION ELEVATED TNI 2D DIMENSIONS Left Atrium (2D)3.7 (1.6-4.0cm)IVSd1.2 (0.7-1.1cm) LVDd4.5 (3.9-5.9cm)PWd1.2 (0.7-1.1cm) LVDs2.9 (2.5-4.0cm)FS (%) 36.3 % LVEF (%)66.1 (>50%) M-Mode DIMENSIONS Aortic Root2.80 (2.2-3.7cm)Aortic Cusp Exc.1.50 (1.5-2.0cm) Aortic Valve AoV Peak Bjzoyzsp434.0cm/sAoV VTI33.4cmAO Peak GR.9mmHg LVOT Peak Lskjbmlr814.0cm/sLVOT VTI21.30cmAO Mean GR.5mmHg Mitral Valve MV E Phcfcbyd02.6cm/sMV A Ynkfxzec82.5cm/sE/A ratio0.8 TDI Lateral E' Peak V10.80cm/sMedial E' Peak V10.70cm/sE/Lateral E'6.2 E/Medial E'6.2 Pulmonary Valve PV Peak Lcybsibm29.3cm/sPV Peak Grad.1mmHg Tricuspid Valve TR Peak Gidsqpqi244xr/sRAP [id number] Peak Gr.30mmHg [id number] LEFT VENTRICLE The left ventricle is normal size. There is borderline concentric left ventricular hypertrophy. The left ventricular function is normal. The left ventricular ejection fraction is within the normal range. There is normal LV segmental wall motion. RIGHT VENTRICLE The right ventricle is normal size. The right ventricular systolic function is normal. ATRIA The left atrium size is normal. The right atrium size is normal. The interatrial septum is intact with no evidence for an atrial septal defect. AORTIC VALVE The aortic valve is normal in structure. No aortic regurgitation is present. There is no aortic valvular stenosis. MITRAL VALVE The mitral valve is normal in structure. Mitral regurgitation is mild. TRICUSPID VALVE The tricuspid valve is normal in structure. There is mild tricuspid regurgitation. PULMONIC VALVE The pulmonary valve is normal in structure. GREAT VESSELS The aortic root is normal in size. The IVC is normal in size and collapses >50% with inspiration. PERICARDIAL EFFUSION There is no pleural effusion. There is no pericardial effusion. <Conclusion> Normal chamber size. Normal LV systolic function. Borderline concentric LVH. Mild mitral regurgitation. Mild tricuspid regurgitation
[2018-11-03 16:33] LABS: CALCIUM 5.4 mg/dL (8.4-10.5)
--- NOTE | 2018-11-03 18:15 | CON ---
DATE OF CONSULTATION: 11/03/2018 REQUESTING PHYSICIAN: Dr. Gary. REASON FOR CONSULTATION: Elevated cardiac enzymes. HISTORY: This is a 68-year-old woman with a complex and unfortunate past history of renal cell carcinoma, for which she underwent nephrectomy [id number] years ago. 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 She has been undergoing oral chemotherapy with Dr. Bonds at the [facility]. She has been treated with CABOMETYX. She states this has been causing severe nausea and diarrhea. She developed generalized weakness and presented to the emergency room. She was found to have a potassium of 4.2. Her troponin was also elevated at 0.25. She denied any chest pain. Cardiac evaluation was requested. She has no prior cardiac history. She does have hypertension and hyperlipidemia. Initially she was hypotensive in the emergency room and was started on Levophed. MEDICATIONS: Her medications at home included gabapentin 100 mg t.i.d., Norvasc 10 mg daily, Zetia 10 mg daily, Crestor 10 mg daily, and valsartan 320 mg. SOCIAL HISTORY: She does not smoke or drink. 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 She is , and lives with her . 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 ALLERGIES: NONE. FAMILY HISTORY: Unremarkable for premature heart disease. REVIEW OF SYSTEMS: Ten-point review of systems is notable mainly for problems mentioned above. PHYSICAL EXAMINATION: GENERAL: She is a chronically ill-appearing middle-aged woman. VITAL SIGNS: Her blood pressure is 115/40 with a pulse of 80 and sinus, respirations are 14. HEENT: Some temporal wasting noted. NECK: No JVD. CHEST: Few scattered rhonchi. HEART: PMI in normal position. No pathological murmurs or gallops noted. ABDOMEN: Soft, nontender with normoactive bowel sounds. EXTREMITIES: No clubbing, cyanosis, or edema. SKIN: Warm and dry. PSYCHIATRIC: Normal mood and affect. NEUROLOGIC: Mild generalized weakness noted, but no gross focal deficits noted. DIAGNOSTIC DATA: Initial white count of 6.6, hemoglobin and hematocrit are 12.8 and 36.7 with a platelet count of 130,000. PT/PTT are 16.5 and 35.5. Venous blood gas showed a pH of 7.19, pCO2 of 40, pO2 of 68. Initial potassium is 3.2 with a calcium of 4, troponin is 0.27, followups are 0.25, 0.20, 0.19, 0.17. Potassium this morning is 3.8, calcium is 4.6 with an albumin of 2.6, cholesterol 173, triglycerides 232, HDL 33, LDL 101, TSH 39.4. Chest x-ray reveals normal cardiac silhouette with clear lung alonzo. Electrocardiogram reveals sinus rhythm with QT prolongation and nonspecific ST-T abnormalities. Followup echocardiogram this morning shows improvement in the QT prolongation. Renal ultrasound of the right kidney was unremarkable. Initial BUN and creatinine were 72 and 11, with hydration this has improved to 57 and 7.1 this morning. IMPRESSION: 1. Elevated troponin, likely secondary to reduced renal clearance in the setting of acute kidney injury. 2. Acute renal failure, appears likely secondary to profound volume depletion. 3. Hypotension requiring pressor support and IV fluids, likely due to severe recent volume depletion with her diarrhea. 4. Abnormal electrocardiogram with QT prolongation likely caused by severe hypocalcemia. 5. Rest of the problems as noted. RECOMMENDATIONS: 1. Continue replacement of her potassium and calcium is advised. An echocardiogram will be performed to exclude any significant wall motion abnormalities. However, this is unlikely. 2. Elevated troponin does not require treatment at this time, as this is likely not due to acute cardiac injury. I will continue to follow along and make further recommendations as appropriate. João Segovia MD
[2018-11-03] MEDS: CALCIUM GLUCONATE IV SCH ×2 (21:14→23:30)
[2018-11-03] MEDS: SODIUM CHLORIDE 0.9% IV SCH ×2 (21:14→23:30)
--- NOTE | 2018-11-03 23:15 | PN ---
DATE: 11/03/2018 HOSPITAL COURSE: The patient was seen and examined, I do agree with the note of the medical dosimetrist. I was involved in the plan of care. The patient has acute kidney injury that is improving. The metabolic acidosis improved as well. She has severe hypocalcemia and was symptomatic. Hypocalcemia has improved with calcium replacement as well as Calcitriol. She is hypophosphatemic and phosphorous improving. She has been on Renagel. I will discontinue at this point. The patient's phosphorous improved significantly because the kidney function is improving. I did speak to the patient's daughter to give an update on the patient's diagnosis and plan of care and also updated Dr. Mcclelland, her primary care doctor. The patient will need her Levophed to be weaned off. Prolonged QT is improved. Repeat EKG that was done this morning. She continues to be on IV fluids. She is no longer symptomatic. Her periorbital numbness is improved as well as weakness in the legs. The patient has hypothyroidism that is severe. Synthroid has been started. She was also given bicarb. Nate Gary MD
--- NOTE | 2018-11-04 01:31 | CON ---
DATE: 11/03/2018 ENDOCRINOLOGY CONSULT LOCATION: ICU 128, room 3. HISTORY OF PRESENT ILLNESS: This is a 68-year-old female with known history of renal cell carcinoma and recent diarrhea over the last few months, but worse over the last week or so prior to admission, presenting here with generalized body weakness with dizziness and lightheadedness and is now being referred for endocrine evaluation because of persistent hypocalcemia. She also has abnormal thyroid function studies indicative of hypothyroidism, also of apparent recent onset as noted thereof. PAST MEDICAL HISTORY: History of renal cell carcinoma diagnosed about two years ago and underwent a left nephrectomy at that time. She also had neck surgery for a secondary tumor growth as noted. She has ongoing oral chemotherapy at this time as noted. History of hypertension and dyslipidemia and has been on a combination of valsartan and amlodipine medications. Moreover, she is also on Crestor and Zetia given in combination. History of apparent normal renal function a few months ago with a baseline creatinine of 1.2 as noted and also normal thyroid studies, diagnosed also at that time. FAMILY HISTORY: No known thyroid endocrinopathy, but positive for hypertension and heart disease. SOCIAL HISTORY: The patient is a former smoker and has a very supportive and family otherwise. REVIEW OF SYSTEMS: Admits to generalized body weakness with episodic bouts of dizziness and lightheadedness, worse in the last few days prior to admission. Also admits to bifrontal headaches with marked insomnia and disrupted sleep patterns. No chest pains, but admits to progressive shortness of breath, initially with exertion and then at rest. Her oral intake has been extremely variable and suboptimal with nausea, dyspepsia, and diffuse abdominal pain. Also admits to marked loose watery diarrhea over the last few months prior to admission, but worse in the last week or so prior to admission. PHYSICAL EXAMINATION: GENERAL: Average built female in no apparent distress. VITAL SIGNS: Blood pressure initially of 78/48 and was started right away on Levophed drip infusion as noted and given; pulse of 100 beats per minute, regular; temperature 98; respirations 20; height is 5 feet 4 inches, weight is 138 pounds. HEENT: Head normocephalic. Eyes anicteric with pink conjunctivae. Funduscopy not possible at this time. Ears, nose, and throat, otherwise normal. NECK: Supple. Thyroid gland is normal size. No carotid bruits or any cervical adenopathy. CARDIOPULMONARY: Some adynamic precordium. S1, S2 is rapid and regular. LUNGS: Clear to auscultation. ABDOMEN: Flat, soft with positive bowel sounds. EXTREMITIES: No peripheral edema. Pulses are +2 bilaterally. LABORATORIES: Initially showed a BUN of 72, sodium 131, potassium 3, chloride 94, CO2 of 13, glucose 166, and creatinine 10.5. Ionized calcium was less than 2.5. Her creatine kinase is 9379 and troponin is 0.2. Her thyroid studies showed a free T4 of 0.92 with a T4 of 4.3 and a TSH of 39.4. Her LDH is 6256. Her calcium level is 4.6 with an albumin level of 2.6 and a corrected calcium of 6 mg/dL. ASSESSMENT: This is a 68-year-old female with metastatic renal cell carcinoma and underwent a left nephrectomy, presenting here with symptomatic hypocalcemia and associated paresthesias and constitutional manifestations thereof. She also has significant history of chronic diarrhea and very high possibility of malabsorption which could be a big contributing factor for the supervening hypocalcemia as noted thereof. Moreover, she also has acute renal failure with possible superimposed underlying chronic kidney disease with dehydration and prerenal azotemia with spurious hyponatremia as noted thereof. Moreover, she also has moderate hypothyroidism noted both historically, clinically, and biochemically, most likely related to an underlying autoimmune thyroiditis. A unifying diagnosis has to be ascertained at this time as noted. PLAN OF MANAGEMENT: We will treat her symptomatically at this point with calcium gluconate infusion as given and would actually recommend a maintenance infusion of calcium gluconate at least overnight to optimize not only her metabolic control, but also her clinical manifestations thereof. As mentioned, she also has moderate hypothyroidism, most likely related to underlying autoimmune thyroiditis as noted. Moreover, people with moderate hypothyroidism usually have habitual constipation and the patient has presented here with chronic diarrhea and malabsorption syndrome as noted. There is always a possibility of an underlying autoimmune gastroenteropathy such as celiac disease considering that she has already another autoimmune condition at this time. Moreover, as mentioned above, she has metastatic renal cell carcinoma with ongoing chemotherapy at this time. We will concur with the calcium gluconate infusion as given and would recommend also a calcium gluconate maintenance infusion at least to be given overnight as noted. She also has mild hypomagnesemia which will also contribute to the hypocalcemia and would concur with the magnesium supplementation as given. We will continue the IV hydration as given and obtain serial chemistries accordingly. A hemoglobin A1c will be done to confirm a prior glycemic control, and baseline thyroid function studies will be ordered. We will also obtain a comprehensive thyroid hormonal profile to confirm and/or indicate the presence of underlying autoimmunity and will be included a thyroid peroxidase and thyroglobulin antibody levels as ordered. We will recommend levothyroxine given as 100 mcg IV push once daily for at least three to four days because of this very impaired absorption with ongoing chronic diarrhea and malabsorption syndrome. We will continue the calcitriol medications as given and also calcium carbonate as ordered. We will obtain serial chemistry and supplement accordingly as needed. We will follow. Tiffany Martin MD
[2018-11-04] MEDS ORDERED: Levothyroxine 50 MCG TAB PO SCH (06:00)
[2018-11-04 06:54] LABS: HEMOGLOBIN 8.7 g/dL (12.0-16.0); LYMPH # 0.4 (1.2-3.4); MEAN CORPUSCULAR HEMOGLOBIN 37.3 pg (25.0-35.0); MEAN CORPUSCULAR HGB CONC 35.2 g/dl (31.0-37.0); MEAN PLATELET VOLUME 9.6 fl (7.0-11.0); MONO # 0.2 (0.1-0.6); MONO % 5.4 % (1.0-6.0); RBC 2.33 10^6/uL (3.5-6.1); RED CELL DISTRIBUTION WIDTH 14.7 % (11.5-14.5)
[2018-11-04 07:34] LABS: ALB/GLOB RATIO 1.1 (1.1-1.8); ALBUMIN 2.6 g/dL (3.0-4.8); CALCIUM 5.9 mg/dL (8.4-10.5)
--- NOTE | 2018-11-04 07:35 | CP.CCUPN ---
CCU Subjective - Physician Review Events Since Last Encounter (Free Text): Gianni Joaquin, , PGY-1 MICU Progress Note for Dr. King Patient is no longer requiring pressor support and has been maintaining MAP > 65 on midodrine 10 mg TID. Patient has been receiving continuous Ca replacement in maintenance IVF. No other acute events overnight. Subjective (Free Text): Patient was seen and examined at beside this AM. She reports sleeping better last night without continuous blood draws. She otherwise offers no complaints and denies fever, CP, SOB, abd pain/nausea/vomiting/diarrhea, urinary complaints, or palpitations. 12 point ROS was otherwise negative except as specified above. CCU Objective - Vital Signs / Intake & Output Intake and Output (Last 8hrs): Intake & Output 11/03/18 11/04/18 11/04/18 22:59 06:59 14:59 Intake Total 3392 Output Total 2250 Balance 1142 Intake: IV 3392 Right Chest Wall 3300 Output: Urine 2250 Urethral (Kimble) 2250 - Physical Exam Head: Positive for: Atraumatic, Normocephalic Pupils: Positive for: PERRL Extroacular Muscles: Positive for: EOMI Conjunctiva: Positive for: Normal Ears: Positive for: Normal, NORMAL TM Mouth: Positive for: Dry Pharnyx: Positive for: Normal. Negative for: ERYTHEMA, EXUDATE Nose (External): Positive for: Atraumatic Nose (Internal): Positive for: Normal Inspection, No Active Bleeding Neck: Positive for: Normal Range of Motion, Trachea Midline, Other (C7-T5 post- op scar noted, no crepitus or erythema, well healed). Negative for: Meningeal Signs, MIDLINE TENDERNESS, JVD, Bruit Respiratory/Chest: Positive for: Clear to Auscultation, Good Air Exchange. Negative for: Respiratory Distress, Accessory Muscle Use, Rales, Rhonchi Cardiovascular: Positive for: Regular Rate and Rhythm, Normal S1, S2. Negative for: Murmurs, Rub, Gallop Abdomen: Negative for: Tenderness, Distention, Peritoneal Signs Back: Positive for: Normal Inspection. Negative for: CVA Tenderness, Midline Tenderness Upper Extremity: Positive for: Normal Inspection, Normal ROM, NORMAL PULSES, Neurovascularly Intact. Negative for: Cyanosis, Edema Lower Extremity: Positive for: Normal Inspection, NORMAL PULSES, Neurovascularly Intact. Negative for: Edema, Temperature Abnormalties Neurological: Positive for: GCS=15, CN II-XII Intact, Speech Normal Skin: Positive for: Warm, Dry, Normal Color. Negative for: Rashes Psychiatric: Positive for: Alert, Oriented x 3, Normal Insight, Normal Concentration - Medications Active Medications: Active Medications Generic Name Dose Route Start Last Admin Trade Name Freq PRN Reason Stop Dose Admin Calcitriol 0.25 mcg 11/03/18 10:00 11/03/18 18:16 Rocaltrol PO 11/06/18 10:01 0.25 mcg BID TEODORO Administration Calcium Carbonate 600 mg 11/02/18 18:00 11/03/18 18:15 Caltrate PO 600 mg BID TEODORO Administration Al Hydrox/Mg Hydrox/ 0 ml 11/02/18 13:46 11/02/18 18:57 Simethicone 30 ml/ PO 15 isabel Diphenhydramine HCl 75 mg/ Q2H PRN Administration Lidocaine 30 ml Mouth/Throat Pain Heparin Sodium (Porcine) 5,000 units 11/02/18 14:00 11/04/18 06:22 Heparin SC 5,000 units Q8 TEODORO Administration Protocol Hydrocortisone Sodium Succinate 50 mg 11/03/18 10:45 11/04/18 06:20 Solu-Cortef IVP 50 mg Q6 TEODORO Administration NOREPINEPHRINE BIT/0.9 % NACL 4 mg in 250 mls @ 15 mls/hr 11/02/18 12:31 11/03/18 18:41 Levophed 4 Mg/ 250 Ml Ns Premixed IV 1 mcg/min .[id number] PRN 3.75 mls/hr TITRATE PER MD ORDER Titration Protocol 4 MCG/MIN Calcium Gluconate 1,000 mg/ 1,010 mls @ 75 mls/hr 11/03/18 20:19 11/03/18 23:30 Sodium Chloride IV 75 mls/hr .[id number] TEODORO Administration Levothyroxine Sodium 100 mcg 11/04/18 10:00 Synthroid IVP DAILY TEODORO Midodrine 10 mg 11/03/18 18:00 11/03/18 18:14 Proamatine PO 10 mg TID TEODORO Administration Vitamin A 1 ea 11/02/18 13:45 11/02/18 13:50 Vitamin A & D Oint Ud Foilpak TOP 1 ea Q6 PRN Administration Apply to dry lips - Patient Studies Lab Studies: Microbiology Studies 11/02/18 13:30 MRSA Culture (Admit) - Final Naris MRSA NOT DETECTED 11/02/18 08:30 Blood Culture - Preliminary Blood NO GROWTH AFTER 24 HOURS 11/02/18 08:00 Blood Culture - Preliminary Blood NO GROWTH AFTER 24 HOURS Lab Studies 11/04/18 11/03/18 11/03/18 Range/Units 05:30 15:50 12:15 WBC 3.0 L D (4.5-11.0) 10^3/uL RBC 2.33 L (3.5-6.1) 10^6/uL Hgb 8.7 L (12.0-16.0) g/dL Hct 24.7 L (36.0-48.0) % MCV 106.0 H (80.0-105.0) fl MCH 37.3 H (25.0-35.0) pg MCHC 35.2 (31.0-37.0) g/dl RDW 14.7 H (11.5-14.5) % Plt Count 89 L (120.0-450.0) 10^3/uL MPV 9.6 (7.0-11.0) fl Neut % (Auto) 80.6 H (50.0-68.0) % Lymph % (Auto) 14.0 L (22.0-35.0) % [place] % (Auto) 5.4 (1.0-6.0) % Eos % (Auto) 0.0 L (1.5-5.0) % Baso % (Auto) 0.0 (0.0-3.0) % Lymph # (Auto) 0.4 L (1.2-3.4) [place] # (Auto) 0.2 (0.1-0.6) Eos # (Auto) 0.0 (0.0-0.7) Baso # (Auto) 0.00 (0.0-2.0) K/mm3 Absolute Neuts (auto) 2.41 (1.4-6.5) Sodium 135 (132-148) mmol/L Potassium 3.6 (3.6-5.0) mmol/L Chloride 105 (98-107) mmol/L Carbon Dioxide 20 L (21-33) mmol/L Anion Gap 13 (10-20) BUN 46 H (7-21) mg/dL Creatinine 5.0 H (0.7-1.2) mg/dl Est GFR ( Amer) 10 Est GFR (Non-Af Amer) 9 Random Glucose 156 H (70-110) mg/dL Uric Acid (2.5-6.2) mg/dL Calcium 5.4 L* (8.4-10.5) mg/dL Ionized Calcium (4.80-5.60) mg/dL Phosphorus (2.5-4.5) mg/dL Magnesium (1.7-2.2) mg/dL Total Bilirubin (0.2-1.3) mg/dL AST (14-36) U/L ALT (7-56) U/L Alkaline Phosphatase (38-126) U/L Lactate Dehydrogenase (333-699) U/L Total Creatine Kinase (35-230) U/L CK-MB (CK-2) (0.0-3.6) ng/mL CK-MB (CK-2) % (2.5-3.0) % Total Protein (5.8-8.3) g/dL Albumin (3.0-4.8) g/dL Globulin gm/dL Albumin/Globulin Ratio (1.1-1.8) Triglycerides (35-160) mg/dL Cholesterol (130-200) mg/dL LDL Cholesterol Direct (0-129) mg/dL HDL Cholesterol (29-60) mg/dL Lipase (23-300) U/L Vitamin B12 (239-931) pg/mL 25-OH Vitamin D Total (30-100) ng/mL Folate ng/mL Procalcitonin 2.11 H (0.19-0.49) NG/ML Free T4 (0.78-2.19) ng/dL Thyroxine (T4) (5.5-11.0) ug/dL Free T3 pg/mL (2.77-5.27) pg/mL Calcium (PTH Intact) PTH w/Ion &Tot Calcium (14-64) pg/mL Cortisol AM Sample (4.46-22.7) ug/dL 11/03/18 11/03/18 11/03/18 Range/Units 11:47 11:25 11:25 WBC 4.1 L (4.5-11.0) 10^3/uL RBC 2.66 L (3.5-6.1) 10^6/uL Hgb 9.9 L (12.0-16.0) g/dL Hct 28.4 L (36.0-48.0) % MCV 106.8 H (80.0-105.0) fl MCH 37.2 H (25.0-35.0) pg MCHC 34.9 (31.0-37.0) g/dl RDW 15.0 H (11.5-14.5) % Plt Count 128 (120.0-450.0) 10^3/uL MPV 9.8 (7.0-11.0) fl Neut % (Auto) 74.5 H (50.0-68.0) % Lymph % (Auto) 19.2 L (22.0-35.0) % [place] % (Auto) 5.8 (1.0-6.0) % Eos % (Auto) 0.5 L (1.5-5.0) % Baso % (Auto) 0.0 (0.0-3.0) % Lymph # (Auto) 0.8 L (1.2-3.4) [place] # (Auto) 0.2 (0.1-0.6) Eos # (Auto) 0.0 (0.0-0.7) Baso # (Auto) 0.00 (0.0-2.0) K/mm3 Absolute Neuts (auto) 3.07 (1.4-6.5) Sodium 135 (132-148) mmol/L Potassium 3.2 L (3.6-5.0) mmol/L Chloride 106 (98-107) mmol/L Carbon Dioxide 19 L (21-33) mmol/L Anion Gap 13 (10-20) BUN 51 H (7-21) mg/dL Creatinine 5.8 H (0.7-1.2) mg/dl Est GFR ( Amer) 9 Est GFR (Non-Af Amer) 7 Random Glucose 123 H (70-110) mg/dL Uric Acid (2.5-6.2) mg/dL Calcium 4.8 L* (8.4-10.5) mg/dL Ionized Calcium (4.80-5.60) mg/dL Phosphorus (2.5-4.5) mg/dL Magnesium (1.7-2.2) mg/dL Total Bilirubin (0.2-1.3) mg/dL AST (14-36) U/L ALT (7-56) U/L Alkaline Phosphatase (38-126) U/L Lactate Dehydrogenase (333-699) U/L Total Creatine Kinase (35-230) U/L CK-MB (CK-2) (0.0-3.6) ng/mL CK-MB (CK-2) % (2.5-3.0) % Total Protein (5.8-8.3) g/dL Albumin (3.0-4.8) g/dL Globulin gm/dL Albumin/Globulin Ratio (1.1-1.8) Triglycerides (35-160) mg/dL Cholesterol (130-200) mg/dL LDL Cholesterol Direct (0-129) mg/dL HDL Cholesterol (29-60) mg/dL Lipase 1175 H (23-300) U/L Vitamin B12 (239-931) pg/mL 25-OH Vitamin D Total (30-100) ng/mL Folate ng/mL Procalcitonin (0.19-0.49) NG/ML Free T4 (0.78-2.19) ng/dL Thyroxine (T4) (5.5-11.0) ug/dL Free T3 pg/mL (2.77-5.27) pg/mL Calcium (PTH Intact) PTH w/Ion &Tot Calcium (14-64) pg/mL Cortisol AM Sample (4.46-22.7) ug/dL 11/03/18 11/03/18 11/03/18 Range/Units 09:20 07:15 07:00 WBC (4.5-11.0) 10^3/uL RBC (3.5-6.1) 10^6/uL Hgb (12.0-16.0) g/dL Hct (36.0-48.0) % MCV (80.0-105.0) fl MCH (25.0-35.0) pg MCHC (31.0-37.0) g/dl RDW (11.5-14.5) % Plt Count (120.0-450.0) 10^3/uL MPV (7.0-11.0) fl Neut % (Auto) (50.0-68.0) % Lymph % (Auto) (22.0-35.0) % [place] % (Auto) (1.0-6.0) % Eos % (Auto) (1.5-5.0) % Baso % (Auto) (0.0-3.0) % Lymph # (Auto) (1.2-3.4) [place] # (Auto) (0.1-0.6) Eos # (Auto) (0.0-0.7) Baso # (Auto) (0.0-2.0) K/mm3 Absolute Neuts (auto) (1.4-6.5) Sodium (132-148) mmol/L Potassium (3.6-5.0) mmol/L Chloride (98-107) mmol/L Carbon Dioxide (21-33) mmol/L Anion Gap (10-20) BUN (7-21) mg/dL Creatinine (0.7-1.2) mg/dl Est GFR ( Amer) Est GFR (Non-Af Amer) Random Glucose (70-110) mg/dL Uric Acid 9.0 H (2.5-6.2) mg/dL Calcium (8.4-10.5) mg/dL Ionized Calcium (4.80-5.60) mg/dL Phosphorus (2.5-4.5) mg/dL Magnesium (1.7-2.2) mg/dL Total Bilirubin (0.2-1.3) mg/dL AST (14-36) U/L ALT (7-56) U/L Alkaline Phosphatase (38-126) U/L Lactate Dehydrogenase 3914 H (333-699) U/L Total Creatine Kinase (35-230) U/L CK-MB (CK-2) (0.0-3.6) ng/mL CK-MB (CK-2) % (2.5-3.0) % Total Protein (5.8-8.3) g/dL Albumin (3.0-4.8) g/dL Globulin gm/dL Albumin/Globulin Ratio (1.1-1.8) Triglycerides (35-160) mg/dL Cholesterol (130-200) mg/dL LDL Cholesterol Direct (0-129) mg/dL HDL Cholesterol (29-60) mg/dL Lipase (23-300) U/L Vitamin B12 (239-931) pg/mL 25-OH Vitamin D Total 22 L (30-100) ng/mL Folate ng/mL Procalcitonin (0.19-0.49) NG/ML Free T4 0.92 (0.78-2.19) ng/dL Thyroxine (T4) 4.3 L (5.5-11.0) ug/dL Free T3 pg/mL (2.77-5.27) pg/mL Calcium (PTH Intact) PTH w/Ion &Tot Calcium (14-64) pg/mL Cortisol AM Sample (4.46-22.7) ug/dL 11/03/18 11/03/18 11/03/18 Range/Units 07:00 07:00 05:30 WBC (4.5-11.0) 10^3/uL RBC (3.5-6.1) 10^6/uL Hgb (12.0-16.0) g/dL Hct (36.0-48.0) % MCV (80.0-105.0) fl MCH (25.0-35.0) pg MCHC (31.0-37.0) g/dl RDW (11.5-14.5) % Plt Count (120.0-450.0) 10^3/uL MPV (7.0-11.0) fl Neut % (Auto) (50.0-68.0) % Lymph % (Auto) (22.0-35.0) % [place] % (Auto) (1.0-6.0) % Eos % (Auto) (1.5-5.0) % Baso % (Auto) (0.0-3.0) % Lymph # (Auto) (1.2-3.4) [place] # (Auto) (0.1-0.6) Eos # (Auto) (0.0-0.7) Baso # (Auto) (0.0-2.0) K/mm3 Absolute Neuts (auto) (1.4-6.5) Sodium 135 (132-148) mmol/L Potassium 3.8 (3.6-5.0) mmol/L Chloride 104 (98-107) mmol/L Carbon Dioxide 18 L (21-33) mmol/L Anion Gap 17 (10-20) BUN 57 H (7-21) mg/dL Creatinine 7.1 H (0.7-1.2) mg/dl Est GFR ( Amer) 7 Est GFR (Non-Af Amer) 6 Random Glucose 89 (70-110) mg/dL Uric Acid (2.5-6.2) mg/dL Calcium 4.6 L* (8.4-10.5) mg/dL Ionized Calcium (4.80-5.60) mg/dL Phosphorus 6.8 H (2.5-4.5) mg/dL Magnesium 2.0 (1.7-2.2) mg/dL Total Bilirubin 0.8 (0.2-1.3) mg/dL AST 91 H (14-36) U/L ALT 92 H (7-56) U/L Alkaline Phosphatase 76 (38-126) U/L Lactate Dehydrogenase (333-699) U/L Total Creatine Kinase 6256 H (35-230) U/L CK-MB (CK-2) 8.3 H (0.0-3.6) ng/mL CK-MB (CK-2) % 0.1 L (2.5-3.0) % Total Protein 5.0 L (5.8-8.3) g/dL Albumin 2.6 L (3.0-4.8) g/dL Globulin 2.4 gm/dL Albumin/Globulin Ratio 1.1 (1.1-1.8) Triglycerides 232 H (35-160) mg/dL Cholesterol 173 (130-200) mg/dL LDL Cholesterol Direct 101 (0-129) mg/dL HDL Cholesterol 33 (29-60) mg/dL Lipase (23-300) U/L Vitamin B12 635 (239-931) pg/mL 25-OH Vitamin D Total (30-100) ng/mL Folate > 20.0 ng/mL Procalcitonin (0.19-0.49) NG/ML Free T4 (0.78-2.19) ng/dL Thyroxine (T4) (5.5-11.0) ug/dL Free T3 pg/mL 2.48 L (2.77-5.27) pg/mL Calcium (PTH Intact) PTH w/Ion &Tot Calcium (14-64) pg/mL Cortisol AM Sample 12.9 (4.46-22.7) ug/dL 11/02/18 11/02/18 Range/Units 16:00 08:00 WBC (4.5-11.0) 10^3/uL RBC (3.5-6.1) 10^6/uL Hgb (12.0-16.0) g/dL Hct (36.0-48.0) % MCV (80.0-105.0) fl MCH (25.0-35.0) pg MCHC (31.0-37.0) g/dl RDW (11.5-14.5) % Plt Count (120.0-450.0) 10^3/uL MPV (7.0-11.0) fl Neut % (Auto) (50.0-68.0) % Lymph % (Auto) (22.0-35.0) % [place] % (Auto) (1.0-6.0) % Eos % (Auto) (1.5-5.0) % Baso % (Auto) (0.0-3.0) % Lymph # (Auto) (1.2-3.4) [place] # (Auto) (0.1-0.6) Eos # (Auto) (0.0-0.7) Baso # (Auto) (0.0-2.0) K/mm3 Absolute Neuts (auto) (1.4-6.5) Sodium (132-148) mmol/L Potassium (3.6-5.0) mmol/L Chloride (98-107) mmol/L Carbon Dioxide (21-33) mmol/L Anion Gap (10-20) BUN (7-21) mg/dL Creatinine (0.7-1.2) mg/dl Est GFR ( Amer) Est GFR (Non-Af Amer) Random Glucose (70-110) mg/dL Uric Acid (2.5-6.2) mg/dL Calcium (8.4-10.5) mg/dL Ionized Calcium <2.50 L (4.80-5.60) mg/dL Phosphorus (2.5-4.5) mg/dL Magnesium (1.7-2.2) mg/dL Total Bilirubin (0.2-1.3) mg/dL AST (14-36) U/L ALT (7-56) U/L Alkaline Phosphatase (38-126) U/L Lactate Dehydrogenase (333-699) U/L Total Creatine Kinase (35-230) U/L CK-MB (CK-2) (0.0-3.6) ng/mL CK-MB (CK-2) % (2.5-3.0) % Total Protein (5.8-8.3) g/dL Albumin (3.0-4.8) g/dL Globulin gm/dL Albumin/Globulin Ratio (1.1-1.8) Triglycerides (35-160) mg/dL Cholesterol (130-200) mg/dL LDL Cholesterol Direct (0-129) mg/dL HDL Cholesterol (29-60) mg/dL Lipase (23-300) U/L Vitamin B12 (239-931) pg/mL 25-OH Vitamin D Total (30-100) ng/mL Folate ng/mL Procalcitonin (0.19-0.49) NG/ML Free T4 (0.78-2.19) ng/dL Thyroxine (T4) (5.5-11.0) ug/dL Free T3 pg/mL (2.77-5.27) pg/mL Calcium (PTH Intact) TNP PTH w/Ion &Tot Calcium 877 H (14-64) pg/mL Cortisol AM Sample (4.46-22.7) ug/dL Laboratory Results - last 24 hr 11/02/18 11/02/18 11/03/18 08:00 16:00 05:30 WBC RBC Hgb Hct MCV MCH MCHC RDW Plt Count MPV Neut % (Auto) Lymph % (Auto) [place] % (Auto) Eos % (Auto) Baso % (Auto) Lymph # (Auto) [place] # (Auto) Eos # (Auto) Baso # (Auto) Absolute Neuts (auto) Sodium 135 Potassium 3.8 Chloride 104 Carbon Dioxide 18 L Anion Gap 17 BUN 57 H Creatinine 7.1 H Est GFR ( Amer) 7 Est GFR (Non-Af Amer) 6 Random Glucose 89 Uric Acid Calcium 4.6 L* Ionized Calcium <2.50 L Phosphorus 6.8 H Magnesium 2.0 Total Bilirubin 0.8 AST 91 H ALT 92 H Alkaline Phosphatase 76 Lactate Dehydrogenase Total Creatine Kinase 6256 H CK-MB (CK-2) 8.3 H CK-MB (CK-2) % 0.1 L Total Protein 5.0 L Albumin 2.6 L Globulin 2.4 Albumin/Globulin Ratio 1.1 Triglycerides 232 H Cholesterol 173 LDL Cholesterol Direct 101 HDL Cholesterol 33 Lipase Vitamin B12 635 25-OH Vitamin D Total Folate > 20.0 Procalcitonin Free T4 Thyroxine (T4) Free T3 pg/mL Calcium (PTH Intact) TNP PTH w/Ion &Tot Calcium 877 H Cortisol AM Sample 11/03/18 11/03/18 11/03/18 07:00 07:00 07:00 WBC RBC Hgb Hct MCV MCH MCHC RDW Plt Count MPV Neut % (Auto) Lymph % (Auto) [place] % (Auto) Eos % (Auto) Baso % (Auto) Lymph # (Auto) [place] # (Auto) Eos # (Auto) Baso # (Auto) Absolute Neuts (auto) Sodium Potassium Chloride Carbon Dioxide Anion Gap BUN Creatinine Est GFR ( Amer) Est GFR (Non-Af Amer) Random Glucose Uric Acid Calcium Ionized Calcium Phosphorus Magnesium Total Bilirubin AST ALT Alkaline Phosphatase Lactate Dehydrogenase Total Creatine Kinase CK-MB (CK-2) CK-MB (CK-2) % Total Protein Albumin Globulin Albumin/Globulin Ratio Triglycerides Cholesterol LDL Cholesterol Direct HDL Cholesterol Lipase Vitamin B12 25-OH Vitamin D Total Folate Procalcitonin Free T4 0.92 Thyroxine (T4) 4.3 L Free T3 pg/mL 2.48 L Calcium (PTH Intact) PTH w/Ion &Tot Calcium Cortisol AM Sample 12.9 11/03/18 11/03/18 11/03/18 07:15 09:20 11:25 WBC 4.1 L RBC 2.66 L Hgb 9.9 L Hct 28.4 L MCV 106.8 H MCH 37.2 H MCHC 34.9 RDW 15.0 H Plt Count 128 MPV 9.8 Neut % (Auto) 74.5 H Lymph % (Auto) 19.2 L [place] % (Auto) 5.8 Eos % (Auto) 0.5 L Baso % (Auto) 0.0 Lymph # (Auto) 0.8 L [place] # (Auto) 0.2 Eos # (Auto) 0.0 Baso # (Auto) 0.00 Absolute Neuts (auto) 3.07 Sodium Potassium Chloride Carbon Dioxide Anion Gap BUN Creatinine Est GFR ( Amer) Est GFR (Non-Af Amer) Random Glucose Uric Acid 9.0 H Calcium Ionized Calcium Phosphorus Magnesium Total Bilirubin AST ALT Alkaline Phosphatase Lactate Dehydrogenase 3914 H Total Creatine Kinase CK-MB (CK-2) CK-MB (CK-2) % Total Protein Albumin Globulin Albumin/Globulin Ratio Triglycerides Cholesterol LDL Cholesterol Direct HDL Cholesterol Lipase Vitamin B12 25-OH Vitamin D Total 22 L Folate Procalcitonin Free T4 Thyroxine (T4) Free T3 pg/mL Calcium (PTH Intact) PTH w/Ion &Tot Calcium Cortisol AM Sample 11/03/18 11/03/18 11/03/18 11:25 11:47 12:15 WBC RBC Hgb Hct MCV MCH MCHC RDW Plt Count MPV Neut % (Auto) Lymph % (Auto) [place] % (Auto) Eos % (Auto) Baso % (Auto) Lymph # (Auto) [place] # (Auto) Eos # (Auto) Baso # (Auto) Absolute Neuts (auto) Sodium 135 Potassium 3.2 L Chloride 106 Carbon Dioxide 19 L Anion Gap 13 BUN 51 H Creatinine 5.8 H Est GFR ( Amer) 9 Est GFR (Non-Af Amer) 7 Random Glucose 123 H Uric Acid Calcium 4.8 L* Ionized Calcium Phosphorus Magnesium Total Bilirubin AST ALT Alkaline Phosphatase Lactate Dehydrogenase Total Creatine Kinase CK-MB (CK-2) CK-MB (CK-2) % Total Protein Albumin Globulin Albumin/Globulin Ratio Triglycerides Cholesterol LDL Cholesterol Direct HDL Cholesterol Lipase 1175 H Vitamin B12 25-OH Vitamin D Total Folate Procalcitonin 2.11 H Free T4 Thyroxine (T4) Free T3 pg/mL Calcium (PTH Intact) PTH w/Ion &Tot Calcium Cortisol AM Sample 11/03/18 11/04/18 15:50 05:30 WBC 3.0 L D RBC 2.33 L Hgb 8.7 L Hct 24.7 L MCV 106.0 H MCH 37.3 H MCHC 35.2 RDW 14.7 H Plt Count 89 L MPV 9.6 Neut % (Auto) 80.6 H Lymph % (Auto) 14.0 L [place] % (Auto) 5.4 Eos % (Auto) 0.0 L Baso % (Auto) 0.0 Lymph # (Auto) 0.4 L [place] # (Auto) 0.2 Eos # (Auto) 0.0 Baso # (Auto) 0.00 Absolute Neuts (auto) 2.41 Sodium 135 Potassium 3.6 Chloride 105 Carbon Dioxide 20 L Anion Gap 13 BUN 46 H Creatinine 5.0 H Est GFR ( Amer) 10 Est GFR (Non-Af Amer) 9 Random Glucose 156 H Uric Acid Calcium 5.4 L* Ionized Calcium Phosphorus Magnesium Total Bilirubin AST ALT Alkaline Phosphatase Lactate Dehydrogenase Total Creatine Kinase CK-MB (CK-2) CK-MB (CK-2) % Total Protein Albumin Globulin Albumin/Globulin Ratio Triglycerides Cholesterol LDL Cholesterol Direct HDL Cholesterol Lipase Vitamin B12 25-OH Vitamin D Total Folate Procalcitonin Free T4 Thyroxine (T4) Free T3 pg/mL Calcium (PTH Intact) PTH w/Ion &Tot Calcium Cortisol AM Sample Critical Care Progress Note - Nutrition Nutrition: Nutrition Category Date Time Status Heart Healthy Diet [DIET] Diets 11/02/18 Dinner Active Assessment/Plan - Assessment and Plan (Free Text) Assessment: 68 yo F with PMH of renal cell carcinoma (s/p L nephrectomy and spinal tumor resection, last chemo 3 days ago), HTN, and HLD admitted to MICU for management of hypovolemic shock in the setting of diarrhea and poor PO intake with vasogenic component from adrenal insufficiency. Course was also complicated by acute renal failure. Plan: Neuro: AAOx3, no focal deficit, moving extremities past midline, able to protect airway Reorient as necessary Cardio: Presented in hypovolemic shock in the setting of diarrhea and poor PO intake with vasogenic component from adrenal insufficiency Now maintaining MAP > 65 off levophed, on midodrine 10 mg TID Prolonged QTc now resolved with Ca supplementation TTE completed with LVEF of 66% Monitor for S/Sx of HD compromise Cardiology following, all recs appreciated Pulm: Able to protect airway now and SpO2 is > 95% on room air Supplemental O2 NC PRN to maintain SpO2 > 90% /Nephro: Suspect acute renal failure and electrolyte imbalances are likely 2/2 hypovolemic shock and hypothyroidism Corrected Ca improved to 7 this AM Continue Ca supplementation in maintenance IVF Renal function parameters continue to improve with IVF resuscitation Continue strict I & O Continue to avoid nephrotoxic agents Nephrology, Dr. Gary following, all recs appreciated Endo: Suspect hypothyroidism may be 2/2 cabozantinib chemotherapy Continue IV synthroid supplementation Repeat thyroid function studies are encouraging Given patient's history of taking prednisone 50 mg daily, suspect shock was both hypovolemic and vasogenic Will wean solu-cortef to 50 mg q8h Recommend continued weaning of solu-cortef Once dose is decreased to 25 mg BID, may switch to PO prednisone and wean accordingly Endocrinology following, all recs appreciated GI: Tolerating diet well without nausea/vomiting Avoid zofran due to QT prolongation, may give phenergan if needed Heme/Onc: Macrocytic anemia stable with H/H at 8.7/29.7 Suspect most likely 2/2 dilution effect from aggressive IVF resuscitation B12, folate WNL Continue monitoring H/H and for s/sx of HD compromise ID: Remains afebrile without leukocytosis Blood cx negative x 48 hrs Procal mildly elevated, likely from renal dysfunction, low suspicion for infectious etiology Monitor for sx of infection DVT/GI PPX: SC Heparin/protonix Full Code Heart Healthy, renal diet Monitor in MICU Patient seen, examined with, and plan discussed with my attending Dr. Christine Joaquin D.O. IM Resident PGY-1 Pager: [phone]
[2018-11-04 07:40] LABS: T3 0.56 ng/mL (0.97-1.69)
[2018-11-04] MEDS ORDERED: Potassium Chloride 20 mEq ER Tab PO ONE ×2 (07:43→15:00)
[2018-11-04] MEDS ORDERED: Magnesium Sulfate 2 gm/50 ml 2 GM/50 ML BAG IVPB ONE (07:43)
[2018-11-04] MEDS ORDERED: Levothyroxine 100 mcg (0.1 mg) Inj IVP SCH ×2 (10:00)
--- NOTE | 2018-11-04 10:00 | CP.PCM.PN ---
<Efraín John - Last Filed: 11/04/18 10:17> Subjective - Date & Time of Evaluation Date of Evaluation: 11/04/18 Time of Evaluation: 09:40 - Subjective Subjective: Curtis John PGY2 - Progress Note for Dr. Gary Patient seen and examined this AM. No acute events reported overnight. Patient reports improved symptoms since admission. She reports improved numbness. Denies diarrhea, nausea, vomiting, fever, chills, chest pain, shortness of breath, dizziness, abdominal pain, swelling, urinary complaints. Objective - Vital Signs/Intake and Output Vital Signs (last 24 hours): Temp Pulse Resp BP Pulse Ox 98.8 F 89 12 128/61 94 L 11/04/18 07:40 11/04/18 08:00 11/04/18 02:30 11/04/18 02:30 11/04/18 02:30 Intake and Output: 11/04/18 11/04/18 06:59 18:59 Intake Total 1750 Output Total 2400 Balance -650 - Medications Medications: Current Medications Calcitriol (Rocaltrol) 0.25 mcg PO BID [facility] Stop: 11/06/18 10:01 Last Admin: 11/03/18 18:16 Dose: 0.25 mcg Calcium Carbonate (Caltrate) 600 mg PO BID [facility] Last Admin: 11/03/18 18:15 Dose: 600 mg Heparin Sodium (Porcine) (Heparin) 5,000 units SC Q8 [facility]; Protocol Last Admin: 11/04/18 06:22 Dose: 5,000 units Hydrocortisone Sodium Succinate (Solu-Cortef) 50 mg IVP Q8 [facility] Midodrine (Proamatine) 10 mg PO TID [facility] Last Admin: 11/03/18 18:14 Dose: 10 mg Potassium Chloride (K-Dur 20 Meq Er Tab) 40 meq PO ONCE ONE Stop: 11/04/18 15:01 Vitamin A (Vitamin A & D Oint Ud Foilpak) 1 ea TOP Q6 PRN PRN Reason: Apply to dry lips Last Admin: 11/02/18 13:50 Dose: 1 ea - Labs Labs: 11/04/18 05:30 11/04/18 05:30 PT 16.5 SECONDS (9.4-12.5) H 11/03/18 05:30 INR 1.46 11/03/18 05:30 APTT 35.5 Seconds (26.9-38.3) 11/03/18 05:30 - Constitutional Appears: Non-toxic - Head Exam Head Exam: ATRAUMATIC, NORMOCEPHALIC - Eye Exam Eye Exam: EOMI - ENT Exam ENT Exam: Mucous Membranes Moist Additional comments: oral ulcers - Neck Exam Neck Exam: Full ROM. absent: Lymphadenopathy, Thyromegaly - Respiratory Exam Respiratory Exam: Clear to Ausculation Bilateral, NORMAL BREATHING PATTERN. absent: Rales, Rhonchi, Wheezes - Cardiovascular Exam Cardiovascular Exam: REGULAR RHYTHM, +S1, +S2 - GI/Abdominal Exam GI & Abdominal Exam: Soft, Normal Bowel Sounds. absent: Rigid, Tenderness - Extremities Exam Extremities Exam: Full ROM. absent: Pedal Edema, Tenderness - Neurological Exam Neurological Exam: Alert, Awake, CN II-XII Intact, Oriented x3 Neuro motor strength exam: Left Upper Extremity: 5, Right Upper Extremity: 5, Left Lower Extremity: 5, Right Lower Extremity: 5 - Psychiatric Exam Psychiatric exam: Normal Affect, Normal Mood - Skin Skin Exam: Dry, Warm Assessment and Plan - Assessment and Plan (Free Text) Assessment: #LAURA #Anion Gap Metabolic Acidosis #Hypocalcemia #Hypokalemia #Hyperphosphotemia - improved #Hypomagnesium #Prolonged QT - improved #Hypotensive - improved #Macrocytosis #Renal Cell Carcinoma s/p Left nephrectomy Patient reporting continued improved symptoms. Review of her labs indicate that her renal function and electrolytes are normalizing. Her QT length continues to be stable, will continue to monitor while on telemetry. Will continue to monitor electrolyte status. Patient with hypokalemia, will replete today. No diarrhea or vomiting appreciated. Patient hypocalcemia continues to trend upward, Continue with calcium supplementation, calcitriol, calcium carbonate. Patient continues to show hypomagnesium, continue to replace with magnesium sulfate IV., avoiding mag ox for concern for diarrhea. Hyperphosphatemia has improved and is with in normal limits. Continue to observe with daily labs. Patient thyroid was noted to be elevated >30 TSH. Patient was placed on IV synthroid and on repeat labs shown to be ~5 TSH. Will titrate down synthroid medication and discuss with endocrinology team regarding further therapy reduction. Patient to undergo physical therapy evaluation and treatment today, encourage out of bed to chair. Her renal function appears to have plateaued and continues to downtrend over the past 24-48 hours. Will continue to monitor as injury appears to be combination of gastritis picture with volume depletion. Patient urine output has improved, continue to monitor. DVT/GI prophylaxis. Further recommendations per Dr. Gary Patient seen, case and plan discussed with Dr. Gary <Nate Gary S - Last Filed: 11/04/18 11:59> Objective - Vital Signs/Intake and Output Vital Signs (last 24 hours): Temp Pulse Resp BP Pulse Ox 98.8 F 89 12 128/61 94 L 11/04/18 07:40 11/04/18 08:00 11/04/18 02:30 11/04/18 02:30 11/04/18 02:30 Intake and Output: 11/04/18 11/04/18 06:59 18:59 Intake Total 1750 Output Total 2400 Balance -650 - Medications Medications: Current Medications Calcitriol (Rocaltrol) 0.25 mcg PO BID [facility] Stop: 11/06/18 10:01 Last Admin: 11/04/18 09:47 Dose: 0.25 mcg Calcium Carbonate (Caltrate) 600 mg PO BID [facility] Last Admin: 11/04/18 09:47 Dose: 600 mg Heparin Sodium (Porcine) (Heparin) 5,000 units SC Q8 [facility]; Protocol Last Admin: 11/04/18 06:22 Dose: 5,000 units Hydrocortisone Sodium Succinate (Solu-Cortef) 50 mg IVP Q8 [facility] Midodrine (Proamatine) 10 mg PO TID [facility] Last Admin: 11/04/18 09:47 Dose: 10 mg Potassium Chloride (K-Dur 20 Meq Er Tab) 40 meq PO ONCE ONE Stop: 11/04/18 15:01 Vitamin A (Vitamin A & D Oint Ud Foilpak) 1 ea TOP Q6 PRN PRN Reason: Apply to dry lips Last Admin: 11/02/18 13:50 Dose: 1 ea - Labs Labs: 11/04/18 05:30 11/04/18 05:30 PT 16.5 SECONDS (9.4-12.5) H 11/03/18 05:30 INR 1.46 11/03/18 05:30 APTT 35.5 Seconds (26.9-38.3) 11/03/18 05:30 Assessment and Plan - Assessment and Plan (Free Text) Assessment: Patient was seen and examined by me. I have reviewed the note of the medical receptionist and have gone over the plan of care. I agree with the note. I have reviewed the medications and the last labs.
--- NOTE | 2018-11-04 10:12 | CP.PCM.PN ---
Subjective - Date & Time of Evaluation Date of Evaluation: 11/04/18 Time of Evaluation: 10:12 - Subjective Subjective: PGY-[address] Knight Pt off pressor. No more perioral numbness/tingling, leg cramps. toleratd PO. feel better Objective - Vital Signs/Intake and Output Vital Signs (last 24 hours): Temp Pulse Resp BP Pulse Ox 98.8 F 89 12 128/61 94 L 11/04/18 07:40 11/04/18 08:00 11/04/18 02:30 11/04/18 02:30 11/04/18 02:30 Intake and Output: 11/04/18 11/04/18 06:59 18:59 Intake Total 1750 Output Total 2400 Balance -650 - Medications Medications: Current Medications Calcitriol (Rocaltrol) 0.25 mcg PO BID [facility] Stop: 11/06/18 10:01 Last Admin: 11/04/18 09:47 Dose: 0.25 mcg Calcium Carbonate (Caltrate) 600 mg PO BID [facility] Last Admin: 11/04/18 09:47 Dose: 600 mg Heparin Sodium (Porcine) (Heparin) 5,000 units SC Q8 [facility]; Protocol Last Admin: 11/04/18 06:22 Dose: 5,000 units Hydrocortisone Sodium Succinate (Solu-Cortef) 50 mg IVP Q8 [facility] Midodrine (Proamatine) 10 mg PO TID [facility] Last Admin: 11/04/18 09:47 Dose: 10 mg Potassium Chloride (K-Dur 20 Meq Er Tab) 40 meq PO ONCE ONE Stop: 11/04/18 15:01 Vitamin A (Vitamin A & D Oint Ud Foilpak) 1 ea TOP Q6 PRN PRN Reason: Apply to dry lips Last Admin: 11/02/18 13:50 Dose: 1 ea - Labs Labs: 11/04/18 05:30 11/04/18 05:30 PT 16.5 SECONDS (9.4-12.5) H 11/03/18 05:30 INR 1.46 11/03/18 05:30 APTT 35.5 Seconds (26.9-38.3) 11/03/18 05:30 - Constitutional Appears: No Acute Distress - Head Exam Head Exam: ATRAUMATIC, NORMAL INSPECTION, NORMOCEPHALIC - Eye Exam Eye Exam: EOMI, Normal appearance, PERRL. absent: Scleral icterus Pupil Exam: NORMAL ACCOMODATION - ENT Exam ENT Exam: Mucous Membranes Moist - Neck Exam Additional comments: supple - Respiratory Exam Respiratory Exam: Clear to Ausculation Bilateral. absent: Rales, Rhonchi, Wheezes - Cardiovascular Exam Cardiovascular Exam: REGULAR RHYTHM, +S1, +S2 - GI/Abdominal Exam GI & Abdominal Exam: Soft. absent: Tenderness - Back Exam Back Exam: absent: CVA tenderness (L), CVA tenderness (R) - Neurological Exam Neurological Exam: Alert, Awake, Oriented x3 - Psychiatric Exam Psychiatric exam: Normal Affect, Normal Mood - Skin Skin Exam: Dry, Warm Assessment and Plan - Assessment and Plan (Free Text) Plan: Ms. Sanders, 68F, with PMH stage 4 renal cell carcinoma (s/p L nephrectomy and spinal tumor resection, last chemo 3 days ago), HTN, and HLD presented to ED c/o generalized weakness, fatigue and loss of appetite x 4 days. She was on chronic high dose prednisone 20mg a day x 1 month, but adruptly stopped several days ago. She is admitted for hypovolemic shock with relative adrenal insufficiency, complicated by severe hypocalcemia likely due to malabsorption syndrome from acute on chronic diarrhea and severe hypothyroidism. Severe Hypocalcemia (Corrected Ca 7.02 today) - serial BMP, Mg, Phos - continuous Ca IV infusion - Calcitriol 0.25 mcg BID, Calcium carbonate 600 BID - PTH is high at 877 - QTc prolongation improves Adrenal insufficiency - s/p hydrocortisone 200 x 1 - Solucortef 50 IVq8 - midodrine 10 TID - Cortisol level 12.9 - Goal is to taper midodrine and solucortef. Since pt is only on prednisone 20 qd x 1 month for chemo side effect symptom control, Dr knight said that pt may not need to be on termite exterminator steroid. Once fasting cortisol above 10, can decrease solucortef to bid, then qd. when fasting cortisol above 20, may try discontinue steroid Hypothyroidism, TSH 39, Most likely due to cabometyx, r/o autoimmune vs adrenal - s/p synthroid 50 IVP x 1 - TSH today is 5.13, Total T3 0.56 - synthroid 50 daily s/r/d/w Dr Knight
[2018-11-04 11:15] LABS: FREE T4 1.05 ng/dL (0.78-2.19)
--- NOTE | 2018-11-04 12:30 | US ---
Date of service: 11/03/2018 HISTORY: pancreatitis COMPARISON: Renal ultrasound performed 11/02/18 TECHNIQUE: Sonographic evaluation of the right upper quadrant of the abdomen. FINDINGS: Examination limited by habitus. LIVER: Measures 14.0 cm in length. Echogenic liver may be seen in setting of hepatic parenchymal disease or fatty infiltration. No focal hepatic mass identified. The main portal vein appears patent with normal directional flow. No intrahepatic bile duct dilatation. GALLBLADDER: No gallstones. No gallbladder wall thickening or pericholecystic edema. Negative sonographic Bynum's sign as assessed by the disposition clerk. COMMON BILE DUCT: Measures 3 mm. PANCREAS: Not well-visualized. RIGHT KIDNEY: Measures approximately 10.4 x 5.5 x 5.8 cm. No obstructing calculus or hydronephrosis identified. AORTA: Limited visualization appears grossly unremarkable. IVC: Limited visualization appears grossly unremarkable. OTHER FINDINGS: None . IMPRESSION: Limited study. Echogenic liver may be seen in setting of hepatic parenchymal disease or fatty infiltration. Preliminary impression was provided by [facility].
--- NOTE | 2018-11-04 12:38 | CON ---
DATE OF CONSULTATION: 11/04/2018 GASTROENTEROLOGY CONSULTATION REQUESTING PHYSICIAN: Dr. Gary. 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 The patient had received chemotherapy 3 days prior to her admission to the hospital. The patient states that she typically has some diarrhea after receiving chemotherapy, but not nausea or vomiting. She denied any abdominal pain, hematemesis, rectal bleeding or melena. The patient states that her was ill with a diarrheal illness with nausea and vomiting prior to her becoming ill. She currently feels better without any nausea, vomiting, diarrhea or abdominal pain. She denies any fevers or chills. In the emergency room, the patient was noted to be in acute renal failure with a BUN of 64 and a creatinine of 10. She continued to make urine. Her blood pressure in the emergency room was MAP of 58. The patient feels better and currently appears nontoxic and rather well. PAST MEDICAL HISTORY: As above. Again, she has a history of left renal cell CA with metastasis to the spine. She did have a tumor removed from her cervical spine. She also has a history of hypertension, hyperlipidemia. PAST SURGICAL HISTORY: Notable for a left nephrectomy and cervical spine tumor removal. SOCIAL HISTORY: She denies alcohol abuse or cigarette smoking. FAMILY HISTORY: Noncontributory. REVIEW OF SYSTEMS: Fourteen-point review of systems is notable for nausea, vomiting, and diarrhea. MEDICATIONS AT HOME: Include amlodipine, valsartan, Crestor, Neurontin and Zetia. PHYSICAL EXAMINATION: GENERAL: Well-developed female, lying in bed, in no acute distress. VITAL SIGNS: Reveal a temperature of 98.8, heart rate of 89, blood pressure is 128/61. HEENT: Reveals sclerae to be white. Conjunctivae pink. NECK: Supple. CHEST: Lungs clear. HEART: Reveals regular rate and rhythm. ABDOMEN: Soft, nontender. No mass. EXTREMITIES: Show no edema. LABORATORY DATA: Revealed white blood cell count 3, hemoglobin 8.7, platelet count of 89,000. Chemistries reveal on admission to the hospital, BUN 72, creatinine 10.5, calcium of 4.2, troponin of 0.2, phosphorus of 13.8, lipase of 511 and CK of 9379. Yesterday, her lipase was up to 1175. BUN now was 34, creatinine 3.1, calcium 5.9, potassium 2.9, AST 89, ALT 97, total bilirubin is 1.5. Ultrasound of the abdomen was negative for gallstones or gallbladder wall thickening. Common bile duct was normal. IMPRESSION: A 68-year-old female with acute onset of nausea, vomiting, diarrhea 3 days after chemotherapy with a at home, ill with a similar gastrointestinal illness, his illness was self-limited. The patient developed acute renal failure with dehydration and severe hypotension. I have been asked to see this patient for elevated lipase. The patient clinically does not have acute pancreatitis. She denies any abdominal pain. The elevated lipase is secondary to decreased renal excretion in the setting of acute renal failure, which is improving. I expect a serum lipase to decrease with improving renal function. There are no gallstones on ultrasound. Her gastrointestinal illness was due to most likely a viral gastroenteritis similar to her 's as well as a component of diarrhea from her chemotherapy. RECOMMENDATIONS: 1. No further GI workup planned at this time. 2. Advance diet as tolerated. 3. Follow blood pressure and BUN and creatinine. Thomas Calle MD
--- NOTE | 2018-11-04 13:42 | PN ---
DATE: 11/04/2018 SUBJECTIVE: The patient was seen and examined. I do agree with the note of the medical artist. I was involved in the plan of care. The patient had acute kidney injury secondary to hypovolemia. The patient's to kidney injury has improved, her creatinine is significantly improved. She had an anion gap metabolic acidosis that has improved as well. The hypocalcemia continues to improve with calcium replacement. She had hypokalemia and the potassium will be replaced. She has hypophosphatemia that is improving because of the improvement of her kidney function. She had a prolonged QT and that is improved. The patient has a history of renal cell carcinoma and had left nephrectomy. She is going to be transferred to the medical floor. Her urine output is 2400 and her intake is 1750. The patient had a creatinine of 3.1 this morning this should continue to improve. She has a potassium of 2.9. I did speak to the patient's primary doctor to give her an update on the patient's diagnosis and plan of care. I will have discontinue the patient's IV calcium. She is on heparin for DVT prophylaxis. She is on calcitriol for her hypocalcemia. I will decrease her hydrocortisone. She is going to continue with Synthroid for her hypothyroidism. She is on heart healthy diet. She has been started on physical therapy. She is well enough to get evaluated by physical therapy. May need TCU. Nate Gary MD
--- NOTE | 2018-11-04 13:58 | CARD ---
APPROVED REPORT Date of service: 11/04/2018 EKG Measurement Heart [id number] <Conclusion> Normal sinus rhythm Poor R wave progression Abnormal ECG
[2018-11-04] MEDS ORDERED: CALCIUM GLUCONATE IV SCH (15:15)
[2018-11-04] MEDS ORDERED: SODIUM CHLORIDE 0.9% IV SCH (15:15)
[2018-11-04] MEDS: SODIUM CHLORIDE 0.9% IV SCH (16:39)
[2018-11-04] MEDS: CALCIUM GLUCONATE IV SCH (16:39)
[2018-11-04] MEDS ORDERED: Potassium Chloride 20 mEq ER Tab PO STA (16:50)
--- NOTE | 2018-11-04 19:41 | PN ---
DATE: 11/04/2018 SUBJECTIVE: The patient is seen and examined at bedside. She is comfortable. She talks in full sentences. She is not in respiratory otherwise distress. She had a bowel movement. She ate well and tolerated it well. She reports subjectively doing much better. PHYSICAL EXAMINATION VITAL SIGNS: Temperature 98.8, heart rate 89, blood pressure 133/65, oxygen saturation 97% on room air. HEENT: Head and neck atraumatic. LUNGS: Clear to auscultation bilaterally. HEART: Regular rate and rhythm. S1, S2 normal. ABDOMEN: Soft, nontender and nondistended. MUSCULOSKELETAL: No C/C/E. NEUROLOGIC: The patient moves all extremities spontaneously. SKIN: Moist. PSYCHIATRIC: The patient is alert, awake and oriented x3. LABORATORY DATA WBC 3, hemoglobin 3.7, platelet count 89. Sodium 138, potassium 2.9, chloride 106, carbon dioxide 26, BUN 34, creatinine 3.1, down from 5, glucose 148, AST 89, ALT 97, total bilirubin 0.5, alkaline phosphatase 219. Procalcitonin 2.11. TSH 5.13, down from 39.4. MEDICATIONS: Glycotrol, calcium carbonate, heparin subcutaneous, hydrocortisone 50 mg IV every 8 hours, Synthroid 50 mcg p.o. every 6 hours in the morning, sodium chloride with calcium gluconate at 75 mL/hour, vitamin A and D topical p.r.n. ASSESSMENT AND PLAN: This is 68-year-old lady who presented with combined shock including distributive and hypovolemic shock in the setting of likely adrenal insufficiency and hypothyroidism. The patient was fluid resuscitated, started on Synthroid 100 mcg IV daily and stress dose steroids. The patient substantially improved. She was weaned off of vasopressors. Her hemodynamics stabilized. Her gastrointestinal tract function improved as well. She had a bowel movement. Her renal function substantially improved with picking up her urine output and dropping down creatinine to 3.1 from 5. The patient is subjectively doing better. Her electrolytes improved; however, still need aggressive supplementation, which will be done. We will continue to target the euvolemic glycemia, normothermia and oxygen saturation more than 90%. We will continue with deep venous thrombosis and gastrointestinal prophylaxis. Okay to downgrade to telemetry. Blaise King MD [facility] # [id number]
--- NOTE | 2018-11-04 20:14 | PN ---
DATE: 11/04/2018 SUBJECTIVE: The patient is seen sitting in a chair in the ICU. She is feeling somewhat better. The numbness and weakness has improved. Her potassium and calcium replacement continues. Her QT interval has improved. An echocardiogram was reviewed and showed no evidence of significant wall motion abnormalities. Her current medications include calcium infusion, calcium carbonate, subcutaneous heparin, potassium, Solu-Cortef, Synthroid. OBJECTIVE PHYSICAL EXAMINATION GENERAL: She is a middle-aged woman who appears comfortable at rest. VITAL SIGNS: Blood pressure is 128/60 with a pulse of 90 and sinus, respirations are 14. She is afebrile. HEENT: No JVD. CHEST: A few scattered rhonchi heard. HEART: PMI in normal position. No pathological gallops noted. ABDOMEN: Soft and nontender. Normoactive bowel sounds. EXTREMITIES: No edema. DIAGNOSTIC DATA: Potassium is 2.9, BUN and creatinine 34 and 3.1. White count 3, hemoglobin and hematocrit 8.7 and 24.7, with a platelet count of 89,000. Albumin is 2.6. IMPRESSION 1. Recent elevated troponin, likely due to reduced renal clearance in the setting of acute renal injury. 2. Acute renal failure, severely prerenal secondary to volume depletion, much improved with fluid replacement. 3. Abnormal electrocardiogram, now normalized. 4. Severe hypocalcemia and hypokalemia, improving. 5. Status post nephrectomy for renal cell carcinoma. 6. Sacral tumor undergoing chemotherapy. RECOMMENDATIONS: Continued electrolyte replacement should ensue. No further cardiac workup is indicated at the present time. I will be happy to see her in the future as needed. João Segovia MD
--- NOTE | 2018-11-04 20:38 | PN ---
DATE: 11/04/2018 ENDOCRINOLOGY FOLLOWUP NOTE LOCATION: In ICU 128, room 3. SUBJECTIVE: This is a 68-year-old female with marked symptomatic hypocalcemia with associated neuromuscular symptoms and currently with ongoing calcium gluconate infusion as given and is now being followed closely for metabolic management. She also has significant history of metastatic renal cell carcinoma with ongoing oral chemotherapy as given. Further clarification has been undertaken with chemotherapy drug being given at this time, which could actually contribute to hypothyroidism as noted thereof. She also presented with moderate hypothyroxinemia with a TSH of 39 and a T4 of 4.3 as noted with normal baseline levels in 2018 as noted. She was also previously on oral steroid therapy, taken prednisone 20 mg once a day, which apparently discontinued with supervening hypoadrenalism and adrenal insufficiency and currently on IV steroids as given. LABORATORY DATA: Her chemistries today showed a BUN of 28, sodium 136, potassium 3.2, chloride 105, CO2 of 23, glucose 141, and creatinine 2.5. Her calcium level now is 6 with an albumin level of 2.6 and a corrected calcium of 7.4 mg/dL. ASSESSMENT AND PLAN: So, at this time, we will continue the present calcium infusion with calcium gluconate as given and obtain serial chemistries accordingly. We will also continue the IV hydrocortisone given as 50 mg every 8 hours as given and titrate accordingly as indicated. We will obtain a repeat fasting cortisol level tomorrow morning and adjust her dose regimen accordingly. We will also continue the levothyroxine given as 50 mcg daily as ordered. We will titrate incrementally as indicated to optimize metabolic control. We will follow and advise accordingly. Moreover, we will continue the IV hydration with remarkable improvement of her renal status accordingly. She actually presented initially with hypovolemic shock and was given vigorous IV hydration and Levophed infusion as given. We will obtain serial chemistries and supplement accordingly as needed. We will follow. Tiffany Martin MD
[2018-11-04 20:57] LABS: CREATININE,RANDOM URINE 79 mg/dL
[2018-11-05] MEDS: Levothyroxine 50 MCG TAB PO SCH (05:20)
[2018-11-05] MEDS: CALCIUM GLUCONATE IV SCH (07:06)
[2018-11-05] MEDS: SODIUM CHLORIDE 0.9% IV SCH (07:06)
[2018-11-05 07:31] LABS: HEMOGLOBIN 8.6 g/dL (12.0-16.0); LYMPH # 0.4 (1.2-3.4); LYMPH % 9.8 % (22.0-35.0); MEAN CELL VOLUME 107.7 fl (80.0-105.0); MEAN CORPUSCULAR HEMOGLOBIN 36.8 pg (25.0-35.0); MEAN CORPUSCULAR HGB CONC 34.1 g/dl (31.0-37.0); MEAN PLATELET VOLUME 10.1 fl (7.0-11.0); MONO # 0.2 (0.1-0.6); MONO % 4.6 % (1.0-6.0); RBC 2.34 10^6/uL (3.5-6.1); WHITE BLOOD COUNT 4.1 10^3/uL (4.5-11.0)
[2018-11-05 08:23] LABS: FREE T4 0.93 ng/dL (0.78-2.19)
[2018-11-05 08:52] LABS: ALB/GLOB RATIO 1.1 (1.1-1.8); ALBUMIN 2.6 g/dL (3.0-4.8); CALCIUM 6.6 mg/dL (8.4-10.5)
[2018-11-05] MEDS: Potassium & Sodium Phosphate PO SCH ×2 (10:11→17:08)
--- NOTE | 2018-11-05 13:06 | PN ---
DATE: 11/05/2018 SUBJECTIVE: The patient has no complaints of any chest pain, shortness of breath, headaches, or dizziness. PHYSICAL EXAMINATION: VITAL SIGNS: Temperature is 98.7, pulse is 69, blood pressure is 126/70, respirations 16. GENERAL: The patient is lying in bed, flat, comfortable. HEENT: No oral lesion. Anicteric sclerae. Moist mucosa. NECK: No JVD, adenopathy, or thyromegaly. CARDIOVASCULAR: S1 and S2, regular. No murmurs, rubs, or gallops. LUNGS: Clear to auscultation bilaterally. No wheeze, rales, or rhonchi. ABDOMEN: Bowel sounds are positive, soft, nontender and nondistended. EXTREMITIES: No cyanosis, clubbing or edema. LABORATORY DATA: White count of 4.1, hemoglobin 8.6, creatinine is 1.9, magnesium is 1.5, phosphorus is 2.5, calcium is 6.6. ASSESSMENT: 1. Acute kidney injury, improving. 2. Hypocalcemia, improving. 3. Hypophosphatemia. 4. Hypomagnesemia, improved. 5. Metabolic acidosis, improved. 7. Hypothyroidism. PLAN: The patient is currently comfortable. She is currently on the medical floor. She is continuing on the hydrocortisone, this is being decreased and weaned. The patient is currently on levothyroxine for her hypothyroidism, which is new. She is struggling to ambulate. I have discontinued the IV calcium. She is continuing on calcium orally. She is on calcitriol. She is going to be on calcium carbonate. She is getting physical therapy. Nate Gary MD
[2018-11-05 14:30] LABS: CALCIUM 6.5 mg/dL (8.4-10.5)
[2018-11-05] MEDS ORDERED: Levothyroxine 50 MCG TAB PO ONE (15:30)
[2018-11-05] MEDS ORDERED: Magnesium Sulfate 2 gm/50 ml 2 GM/50 ML BAG IVPB ONE (16:04)
[2018-11-05 22:49] LABS: CALCIUM 6.5 mg/dL (8.4-10.5)
--- NOTE | 2018-11-05 23:03 | PN ---
DATE: 11/05/2018 ENDOCRINOLOGY FOLLOWUP NOTE LOCATION: In ICU 128, room 3. SUBJECTIVE: This is a 68-year-old female with recent presentation with hypovolemic shock and dehydration and since then improved clinically and metabolically as noted thereof. She also had a brief bouts of adrenal insufficiency and currently on tapering dosing of IV steroid therapy as given. Moreover because of the chronic diarrhea and possible malabsorption, she has also presented with symptomatic hypocalcemia and has been started on IV calcium infusion as given. LABORATORY DATA: Her latest chemistries showed a BUN of 25, sodium of 138, potassium of 3.5, chloride of 107, CO2 of 24, glucose of 157,and creatinine of 1.9. Her calcium level is now 6.5 with albumin level of initially 2.6 and corrected calcium of 7.9 mg/dL. Her phosphorus is 2.4 with a magnesium of 1.3. Her repeat thyroid studies showed a T4 of 4.9 with a TSH of 2.65. ASSESSMENT AND PLAN: So, at this time, we will continue the oral calcium and vitamin D supplementation with calcitriol and calcium carbonate as given. We will also taper down the IV steroid replacement therapy as given, pending the availability of the serum cortisol level as ordered. We will also continue the IV hydration as given. We will follow and advise accordingly. Tiffany Martin MD
[2018-11-06] MEDS: Levothyroxine 50 MCG TAB PO SCH (05:28)
[2018-11-06 07:18] LABS: HEMOGLOBIN 8.2 g/dL (12.0-16.0); LYMPH # 0.4 (1.2-3.4); LYMPH % 8.6 % (22.0-35.0); MEAN CELL VOLUME 109.5 fl (80.0-105.0); MEAN CORPUSCULAR HEMOGLOBIN 36.9 pg (25.0-35.0); MEAN CORPUSCULAR HGB CONC 33.7 g/dl (31.0-37.0); MEAN PLATELET VOLUME 9.7 fl (7.0-11.0); MONO # 0.2 (0.1-0.6); MONO % 3.3 % (1.0-6.0); RBC 2.22 10^6/uL (3.5-6.1); RED CELL DISTRIBUTION WIDTH 14.9 % (11.5-14.5); WHITE BLOOD COUNT 4.9 10^3/uL (4.5-11.0)
[2018-11-06 07:52] LABS: ALB/GLOB RATIO 1.1 (1.1-1.8); ALBUMIN 2.5 g/dL (3.0-4.8); CALCIUM 6.2 mg/dL (8.4-10.5)
[2018-11-06 08:09] LABS: FREE T4 0.83 ng/dL (0.78-2.19)
[2018-11-06] MEDS ORDERED: Potassium Chloride 20 mEq ER Tab PO ONE ×2 (09:53→18:00)
[2018-11-06] MEDS ORDERED: Magnesium Sulfate 2 GM in Sodium Chloride 0.9% 100 ML IV ONE (09:53)
[2018-11-06] MEDS: Magnesium Oxide 400 mg Tab UD PO SCH ×2 (11:16→17:39)
[2018-11-06] MEDS: Vitamins A & D Oint UD Foilpak TOP PRN (11:16)
[2018-11-06] MEDS: Potassium & Sodium Phosphate PO SCH ×2 (11:16→17:39)
[2018-11-06] MEDS ORDERED: Magnesium Sulfate 2 GM in 50 ml Water IVPB ONE (11:30)
[2018-11-06 14:30] LABS: CALCIUM 6.2 mg/dL (8.4-10.5)
--- NOTE | 2018-11-06 14:56 | PN ---
DATE: 11/06/2018 SUBJECTIVE: The patient has no complaints of any chest pain or shortness of breath. No headaches. She says she feels well. She did not get a good night sleep. PHYSICAL EXAMINATION: VITAL SIGNS: Temperature is 98.1, pulse of 81, blood pressure is , respiration is 12. GENERAL: The patient is lying in bed, flat, comfortable. HEENT: No oral lesion. Anicteric sclerae. Moist mucosa. NECK: No JVD, adenopathy, or thyromegaly. CARDIOVASCULAR: S1 and S2, regular. No murmurs, rubs, or gallops. LUNGS: Clear to auscultation bilaterally. No wheeze, rales, or rhonchi. ABDOMEN: Bowel sounds are positive, soft, nontender and nondistended. EXTREMITIES: No cyanosis, clubbing or edema. LABORATORY DATA: White count of 4.9, hemoglobin 8.2, creatinine is 1.6, potassium is 3.2. ASSESSMENT: 1. Acute kidney injury. 2. Hypokalemia. 3. Hypocalcemia, improving. 4. Hypophosphatemia. 5. Hypomagnesemia, improved. 6. Metabolic acidosis, improved. 7. Hypothyroidism. 8. Prolonged QT, improved. 9. Renal cell carcinoma, status post left nephrectomy. PLAN: The patient continues to make significant improvement. Hemoglobin is 8.2. She had a creatinine of 1.6. The patient's calcium corrected is about 7.4. The patient has low magnesium. I will replace the magnesium. She will also need potassium replacement. The patient's TSH is normal. The patient's cortisol is 98. The patient is getting her steroids tapered. She is on phosphorus replacement because of the hypophosphatemia. She is on calcitriol and calcium orally. The patient is on a heart healthy diet. She is getting physical therapy. Nate Gary MD
[2018-11-06 22:08] LABS: CALCIUM 5.9 mg/dL (8.4-10.5)
[2018-11-07] MEDS: Levothyroxine 50 MCG TAB PO SCH (05:02)
[2018-11-07 06:52] VITALS: RESP 20; O2SAT 98
[2018-11-07 07:13] LABS: BASO # 0.01 K/mm3 (0.0-2.0); BASO % 0.2 % (0.0-3.0); EOS % 0.3 % (1.5-5.0); HEMOGLOBIN 9.3 g/dL (12.0-16.0); LYMPH # 0.9 (1.2-3.4); LYMPH % 13.4 % (22.0-35.0); MEAN CELL VOLUME 110.8 fl (80.0-105.0); MEAN CORPUSCULAR HEMOGLOBIN 37.1 pg (25.0-35.0); MEAN CORPUSCULAR HGB CONC 33.5 g/dl (31.0-37.0); MEAN PLATELET VOLUME 9.9 fl (7.0-11.0); MONO # 0.2 (0.1-0.6); MONO % 3.7 % (1.0-6.0); RBC 2.51 10^6/uL (3.5-6.1); RED CELL DISTRIBUTION WIDTH 14.9 % (11.5-14.5); WHITE BLOOD COUNT 6.6 10^3/uL (4.5-11.0)
[2018-11-07 07:41] LABS: ALB/GLOB RATIO 1.1 (1.1-1.8); ALBUMIN 2.7 g/dL (3.0-4.8); CALCIUM 6.2 mg/dL (8.4-10.5)
[2018-11-07] MEDS ORDERED: Magnesium Sulfate 2 GM in Sodium Chloride 0.9% 100 ML IV ONE (08:44)
[2018-11-07] MEDS ORDERED: Potassium Chloride 20 mEq ER Tab PO ONE ×2 (08:44→14:00)
--- NOTE | 2018-11-07 08:49 | PN ---
DATE: 11/06/2018 LOCATION: Room 276. SUBJECTIVE: This is a 68-year-old female with recent hypovolemic shock and supervening brief bout of adrenal insufficiency and has since then improved clinically and hemodynamically as noted thereof. She also had a transient moderate hypothyroidism but has also improved accordingly with levothyroxine replacement therapy at a low dose of 50 mcg daily as given. Moreover, she also presented with symptomatic hypocalcemia and has improved with calcium infusion as given accordingly. She is currently on oral calcium and vitamin D supplementation as noted. Her current chemistry showed a BUN of 21, sodium 135, potassium 3.5, chloride 104, CO2 of 27, glucose 149, and creatinine 1.5. Her current calcium level is 5.9 with an albumin level of 2.6 and a corrected calcium of 7.3 mg per deciliter. So at this time, we will continue the tapering down of the hydrocortisone or Solu-Cortef down to 50 mg once daily as ordered. We will also obtain a repeat fasting serum cortisol level and a repeat thyroid stimulating hormone to adjust her dose regimen accordingly. We will follow and advise accordingly. We will also continue the low-dose levothyroxine given as 50 mcg once daily as ordered. They actually discontinued the calcitriol so we will increase the calcitriol to 0.5 mcg b.i.d. as ordered. We will continue the calcium carbonate given as 600 mg b.i.d. as ordered. We will also obtain serial calcium and vitamin D levels accordingly. We will follow and advised accordingly. Tiffany Martin MD
[2018-11-07] MEDS ORDERED: Magnesium Sulfate 2 gm/50 ml 2 GM/50 ML BAG IV ONE (08:52)
--- NOTE | 2018-11-07 08:52 | CP.PCM.PN ---
Subjective - Date & Time of Evaluation Date of Evaluation: 11/07/18 Time of Evaluation: 08:51 - Subjective Subjective: PGY-[address] Martin No more N/T/cramps. However back hurts from mattress. Was on gabapentin at home. No other acute complaints Objective - Vital Signs/Intake and Output Vital Signs (last 24 hours): Temp Pulse Resp BP Pulse Ox 98.4 F 98 H 20 153/89 H 98 11/07/18 06:00 11/07/18 06:00 11/07/18 06:00 11/07/18 06:00 11/07/18 06:00 Intake and Output: 11/07/18 11/07/18 06:59 18:59 Intake Total 780 Balance 780 - Medications Medications: Current Medications Acetaminophen (Tylenol 325mg Tab) 650 mg PO Q4H PRN PRN Reason: Pain, moderate (4-7) Last Admin: 11/07/18 08:35 Dose: 650 mg Calcitriol (Rocaltrol) 1 mcg PO BID [facility] Calcium Carbonate (Caltrate) 600 mg PO BID [facility] Last Admin: 11/06/18 17:39 Dose: 600 mg Heparin Sodium (Porcine) (Heparin) 5,000 units SC Q8 [facility], [facility]1983; Protocol Last Admin: 11/07/18 05:02 Dose: 5,000 units Hydrocortisone Sodium Succinate (Solu-Cortef) 50 mg IVP DAILY [facility], 1928[facility]1983 Last Admin: 11/06/18 11:26 Dose: 50 mg Magnesium Sulfate 2 gm/ Sodium (Chloride) 104 mls @ 102 mls/hr IV ONCE ONE Stop: 11/07/18 09:45 Levothyroxine Sodium (Synthroid) 50 mcg PO 0600 [facility]1983 Last Admin: 11/07/18 05:02 Dose: 50 mcg Magnesium Oxide (Mag-Ox) 400 mg PO BID [facility] Last Admin: 11/06/18 17:39 Dose: 400 mg Potassium Chloride (K-Dur 20 Meq Er Tab) 40 meq PO ONCE ONE Stop: 11/07/18 14:01 Potassium Phos/Sodium Phos (Neutra-Phos) 2 pkt PO BID TEODORO Stop: 11/07/18 10:01 Last Admin: 11/06/18 17:39 Dose: 2 pkt Vitamin A (Vitamin A & D Oint Ud Foilpak) 1 ea TOP Q6 PRN PRN Reason: Apply to dry lips Last Admin: 11/06/18 11:16 Dose: 1 ea - Labs Labs: 11/07/18 07:05 11/07/18 07:05 PT 16.5 SECONDS (9.4-12.5) H 11/03/18 05:30 INR 1.46 11/03/18 05:30 APTT 35.5 Seconds (26.9-38.3) 11/03/18 05:30 - Constitutional Appears: No Acute Distress - Head Exam Head Exam: ATRAUMATIC, NORMAL INSPECTION, NORMOCEPHALIC - Eye Exam Eye Exam: EOMI, Normal appearance, PERRL. absent: Scleral icterus Pupil Exam: NORMAL ACCOMODATION - ENT Exam ENT Exam: Mucous Membranes Moist - Neck Exam Additional comments: supple - Respiratory Exam Respiratory Exam: Clear to Ausculation Bilateral, NORMAL BREATHING PATTERN. absent: Rales, Rhonchi, Wheezes - Cardiovascular Exam Cardiovascular Exam: REGULAR RHYTHM, +S1, +S2. absent: Murmur - GI/Abdominal Exam GI & Abdominal Exam: Soft, Normal Bowel Sounds. absent: Guarding, Rigid, Tenderness - Extremities Exam Extremities Exam: absent: Calf Tenderness, Pedal Edema - Back Exam Back Exam: absent: CVA tenderness (L), CVA tenderness (R) - Neurological Exam Neurological Exam: Alert, Awake, Oriented x3 - Psychiatric Exam Psychiatric exam: Normal Affect, Normal Mood - Skin Skin Exam: Dry, Warm Assessment and Plan - Assessment and Plan (Free Text) Plan: Ms. Sanders, 68F, with PMH stage 4 renal cell carcinoma (s/p L nephrectomy and spinal tumor resection, last chemo 3 days ago), HTN, and HLD presented to ED c/o generalized weakness, fatigue and loss of appetite x 4 days. She was on chronic high dose prednisone 20mg a day x 1 month, but adruptly stopped several days ago. She is admitted for hypovolemic shock with relative adrenal insufficiency, complicated by severe hypocalcemia likely due to malabsorption syndrome from acute on chronic diarrhea and severe hypothyroidism. 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
[2018-11-07] MEDS: Magnesium Oxide 400 mg Tab UD PO SCH (10:48)
[2018-11-07] MEDS: Potassium & Sodium Phosphate PO SCH (10:49)
--- NOTE | 2018-11-07 11:24 | CP.PCM.DIS ---
<Efraín John - Last Filed: 11/07/18 11:49> Provider - Provider Date of Admission: 11/02/18 10:26 Attending physician: Nate Gary MD Consults: 11/02/18 10:51 Consult [Physician Consult] Routine Comment: Consulting Provider: João Segovia Consulting Physician: João Segovia Reason for Consult: elevated trop 11/02/18 14:32 Social Work Referral Routine Comment: d/c plan Physician Instructions: Reason For Exam: assess 11/02/18 15:07 Case Management Referral Routine Comment: Physician Instructions: Reason For Exam: Reason for Referral: Discharge Planning 11/02/18 17:44 Nursing Referral for Wound Care Routine Comment: Physician Instructions: Reason For Exam: low lea, heel scabs 11/02/18 19:51 Nursing Referral for Wound Care Routine Comment: Physician Instructions: Reason For Exam: recurrent heal sores 11/03/18 07:08 Consult [Physician Consult] Routine Comment: severe hypocalcemia Consulting Provider: Tiffany Martin Consulting Physician: Tiffany Martin Reason for Consult: severe hypocalcemia 11/03/18 16:29 Gastroenterology Consult Routine Comment: Consulting Provider: Thomas Calle Consulting Physician: Thomas Calle Reason for Consult: worsening of chemical pancreatitis, known to Dr. Calle 11/04/18 12:00 TCU [Evaluation for TRCU] Routine Comment: Physician Instructions: Reason For Exam: Gait dysfunction Time Spent in preparation of Discharge (in minutes): 40 Diagnosis - Discharge Diagnosis (1) Hyperphosphatemia Status: Resolved (2) Hypokalemia Status: Resolved (3) LAURA (acute kidney injury) Status: Acute (4) Hypocalcemia Status: Acute (5) Prolonged QT interval Status: Resolved Hospital Course - Lab Results Lab Results: Micro Results 11/02/18 08:30 Blood Blood Culture - Final NO GROWTH AFTER 5 DAYS 11/02/18 08:30 Blood Gram Stain - Final TEST NOT PERFORMED 11/02/18 08:00 Blood Blood Culture - Final NO GROWTH AFTER 5 DAYS 11/02/18 08:00 Blood Gram Stain - Final TEST NOT PERFORMED 11/02/18 13:30 Naris MRSA Culture (Admit) - Final MRSA NOT DETECTED Most Recent Lab Values WBC 6.6 10^3/uL (4.5-11.0) D 11/07/18 07:05 RBC 2.51 10^6/uL (3.5-6.1) L 11/07/18 07:05 Hgb 9.3 g/dL (12.0-16.0) L 11/07/18 07:05 Hct 27.8 % (36.0-48.0) L 11/07/18 07:05 MCV 110.8 fl (80.0-105.0) H 11/07/18 07:05 MCH 37.1 pg (25.0-35.0) H 11/07/18 07:05 MCHC 33.5 g/dl (31.0-37.0) 11/07/18 07:05 RDW 14.9 % (11.5-14.5) H 11/07/18 07:05 Plt Count 116 10^3/uL (120.0-450.0) L 11/07/18 07:05 MPV 9.9 fl (7.0-11.0) 11/07/18 07:05 Neut % (Auto) 82.4 % (50.0-68.0) H 11/07/18 07:05 Lymph % (Auto) 13.4 % (22.0-35.0) L 11/07/18 07:05 [place] % (Auto) 3.7 % (1.0-6.0) 11/07/18 07:05 Eos % (Auto) 0.3 % (1.5-5.0) L 11/07/18 07:05 Baso % (Auto) 0.2 % (0.0-3.0) 11/07/18 07:05 Lymph # (Auto) 0.9 (1.2-3.4) L 11/07/18 07:05 [place] # (Auto) 0.2 (0.1-0.6) 11/07/18 07:05 Eos # (Auto) 0.0 (0.0-0.7) 11/07/18 07:05 Baso # (Auto) 0.01 K/mm3 (0.0-2.0) 11/07/18 07:05 Absolute Neuts (auto) 5.41 (1.4-6.5) 11/07/18 07:05 PT 16.5 SECONDS (9.4-12.5) H 11/03/18 05:30 INR 1.46 11/03/18 05:30 APTT 35.5 Seconds (26.9-38.3) 11/03/18 05:30 pO2 31 mm/Hg (30-55) 11/02/18 12:15 VBG pH 7.26 (7.32-7.43) L 11/02/18 12:15 VBG pCO2 35.0 (40-60) L 11/02/18 12:15 VBG HCO3 15.7 mmol/l (21-28) L 11/02/18 12:15 VBG Total CO2 16.8 mmol.L (22-28) L 11/02/18 12:15 VBG O2 Sat (Calc) 49.9 % (40-65) 11/02/18 12:15 VBG Base Excess -10.4 mmol/L (0.0-2.0) L 11/02/18 12:15 VBG Potassium 3.5 mmol/L (3.6-5.2) L 11/02/18 12:15 Sodium 134.0 mmol/L (132-148) 11/02/18 12:15 Chloride 95.0 mmol/L (98-107) L 11/02/18 12:15 Glucose 82 mg/dl (65-105) 11/02/18 12:15 Lactate 1.4 mmol/L (0.7-2.1) 11/02/18 12:15 FiO2 21.0 % 11/02/18 12:15 Crit Value Called To Sugar hyde 11/02/18 07:58 Crit Value Called By Carol 11/02/18 07:58 Blood Gas Notified Time 823 11/02/18 07:58 Sodium 135 mmol/L (132-148) 11/07/18 07:05 Potassium 3.4 mmol/L (3.6-5.0) L 11/07/18 07:05 Chloride 102 mmol/L (98-107) 11/07/18 07:05 Carbon Dioxide 27 mmol/L (21-33) 11/07/18 07:05 Anion Gap 9 (10-20) L 11/07/18 07:05 BUN 20 mg/dL (7-21) 11/07/18 07:05 Creatinine 1.4 mg/dl (0.7-1.2) H 11/07/18 07:05 Est GFR ( Amer) 45 11/07/18 07:05 Est GFR (Non-Af Amer) 38 11/07/18 07:05 Random Glucose 87 mg/dL (70-110) 11/07/18 07:05 Uric Acid 9.0 mg/dL (2.5-6.2) H 11/03/18 09:20 Calcium 6.2 mg/dL (8.4-10.5) L* 11/07/18 07:05 Ionized Calcium 2.7 mg/dL (4.80-5.60) L 11/03/18 08:00 Phosphorus 2.6 mg/dL (2.5-4.5) 11/07/18 07:05 Magnesium 1.5 mg/dL (1.7-2.2) L 11/07/18 07:05 Total Bilirubin 0.5 mg/dL (0.2-1.3) 11/07/18 07:05 AST 53 U/L (14-36) H 11/07/18 07:05 ALT 73 U/L (7-56) H 11/07/18 07:05 Alkaline Phosphatase 133 U/L (38-126) H 11/07/18 07:05 Lactate Dehydrogenase 3914 U/L (333-699) H 11/03/18 09:20 Total Creatine Kinase 6256 U/L (35-230) H 11/03/18 05:30 CK-MB (CK-2) 8.3 ng/mL (0.0-3.6) H 11/03/18 05:30 CK-MB (CK-2) % 0.1 % (2.5-3.0) L 11/03/18 05:30 Troponin I 0.17 ng/mL H* 11/03/18 01:08 Total Protein 5.1 g/dL (5.8-8.3) L 11/07/18 07:05 Albumin 2.7 g/dL (3.0-4.8) L 11/07/18 07:05 Globulin 2.4 gm/dL 11/07/18 07:05 Albumin/Globulin Ratio 1.1 (1.1-1.8) 11/07/18 07:05 Triglycerides 232 mg/dL (35-160) H 11/03/18 05:30 Cholesterol 173 mg/dL (130-200) 11/03/18 05:30 LDL Cholesterol Direct 101 mg/dL (0-129) 11/03/18 05:30 HDL Cholesterol 33 mg/dL (29-60) 11/03/18 05:30 Amylase 92 U/L (35-125) 11/02/18 21:26 Lipase 1175 U/L (23-300) H 11/03/18 11:47 Vitamin B12 635 pg/mL (239-931) 11/03/18 05:30 25-OH Vitamin D Total 22 ng/mL (30-100) L 11/03/18 07:15 Folate > 20.0 ng/mL 11/03/18 05:30 Procalcitonin 2.11 NG/ML (0.19-0.49) H 11/03/18 12:15 Free T4 1.00 ng/dL (0.78-2.19) 11/07/18 07:05 Thyroxine (T4) 5.9 ug/dL (5.5-11.0) 11/07/18 07:05 Free T3 pg/mL 2.48 pg/mL (2.77-5.27) L 11/03/18 07:00 Total T3 0.56 ng/mL (0.97-1.69) L 11/04/18 05:30 TSH 3rd Generation 33.60 mIU/mL (0.46-4.68) H 11/07/18 07:05 PTH Intact Whole Molec 777 pg/mL (14-64) H 11/03/18 07:15 Calcium (PTH Intact) TNP 11/02/18 08:00 PTH w/Ion &Tot Calcium 877 pg/mL (14-64) H 11/02/18 08:00 Cortisol AM Sample 105.0 ug/dL (4.46-22.7) H 11/06/18 06:35 Venous Blood Potassium 3.5 mmol/L (3.6-5.2) L 11/02/18 12:15 Urine Color Yellow (YELLOW) 11/02/18 13:30 Urine Appearance Sl cloudy (CLEAR) 11/02/18 13:30 Urine pH 5.5 (4.7-8.0) 11/02/18 13:30 Ur Specific Mena 1.025 (1.005-1.035) 11/02/18 13:30 Urine Protein 100 mg/dL (<30 mg/dL) H 11/02/18 13:30 Urine Glucose (UA) Negative mg/dL (NEGATIVE) 11/02/18 13:30 Urine Ketones Negative mg/dL (NEGATIVE) 11/02/18 13:30 Urine Blood Moderate (NEGATIVE) H 11/02/18 13:30 Urine Nitrate Negative (NEGATIVE) 11/02/18 13:30 Urine Bilirubin Negative (NEGATIVE) 11/02/18 13:30 Urine Urobilinogen 0.2 E.U./dL (<1 E.U./dL) 11/02/18 13:30 Ur Leukocyte Esterase Negative Kaye/uL (NEGATIVE) 11/02/18 13:30 Urine RBC 5 - 10 /hpf (0-2) H 11/02/18 13:30 Urine WBC 5 - 10 /hpf (0-6) H 11/02/18 13:30 Ur Epithelial Cells 4 - 5 /hpf (0-5) 11/02/18 13:30 Urine Bacteria Mod /hpf (NONE) 11/02/18 13:30 Urine Eosinophils Negative 11/02/18 14:00 Ur Random Creatinine 79 mg/dL 11/04/18 20:20 U Random Total Protein 81 mg/L 11/02/18 13:30 Ur Random Sodium 64 meq/L 11/04/18 20:20 Ur Random Calcium < 1.0 mg/dL 11/02/18 13:30 Thyroperoxidase Ab <1 IU/mL (<9) 11/03/18 11:25 Thyroglobulin Antibody <1 IU/mL (< OR = 1) 11/03/18 11:25 - Hospital Course Hospital Course: Hospital Course Mrs. Sanders is a 68 year old female who presented with generalized weakness, diarrhea, limited oral intake and fatigue. She was evaluated in the emergency department found to have severe hypocalcemia, hypokalemia, hypomagnesium, hyperphosphatemia, acute renal failure, elevated anion gap metabolic acidosis, prolonged QT on ECG and hypotensive. She was transferred to the ICU and given IV fluids, electrolytes repleted and started on low dose IV pressors and monitored over the next 48 hours. With electrolyte replacement the patient symptoms improved and with appropriate hydration her kidney function started to return to normal. Her differential for acute renal failure was focused on possible ATN vs. pre-renal azotemia with limited blood flow secondary to volume loss. She was noted to have elevated TSH on her labs and endocrinology was consulted and bindu rodriguezated the patient. Patient was treated symptomatically for calcium deficiency and worked up for possible causes of her hypothyroidism. She was placed on IV synthroid and TSH monitored. After first 24 hours patient thyroid had dramatically corrected to mild elevation in TSH. Further workup for autoimmune thyroiditis was conducted. Patient was noted to have elevated Lipase on admission and ICU team requested consult for chemical pancreatitis. Patient was evaluated by Dr. Calle and recommended continued medical management as patient was not in acute pancreatitis and that her gallbladder ultrasound was unimpressive. Patient was transferred to telemetry floor for further monitoring. Patients labs continued to correct towards normal. Physical therapy saw and evaluated the patient with recommendations for TCU upon discharge. Patient requested that she be discharged home with plan for possibly outpatient physical therapy. Patient was able to tolerate her diet shorlty after admission and alexandre ntain adequate fluid status. Her vitals stabilized and blood pressure remained within normal limits. Discharge planning including appropriate follow up, medication reconciliation and signs and symptoms to be aware of for return to the nearest emergency department were discussed. Patient was in understanding and agreeable. She was discharged with prescriptions and instructed on proper usage. This is a brief summary of the patients hospital stay, please see chart for full detail. Diagnosis #Acute Kidney Injury #Anion Gap Metabolic Acidosis #Hypocalcemia #Hypokalemia #Hyperphosphotemia - improved #Hypomagnesium #Prolonged QT - improved #Hypotensive - improved #Hypothyroidism #Renal Cell Carcinoma s/p Left nephrectomy Imaging: Renal Ultrasound: (11/02/2018) -Status post left nephrectomy, unremarkable right renal sonogram Echocardiogram: (11/03/2018) -Normal chamber size, normal LV systolic function, borderline concentric LVH, Mild mitral regurgitation, mild tricuspid regurgitation Gallbladder US: (11/03/2018) -Liver measures 14.0 cm in length, echogenic liver may be seen in setting of hepatic parenchymal disease or fatty infiltration. No focal hepatic mass identified. Main portal vein appears patent with normal directional flow. No intrahepatic bile duct dilation. -Gallbladder without gallstones, wall thickening or pericholecystic edema. Negative sonographic [place] sign Discharge Exam - Head Exam Head Exam: ATRAUMATIC, NORMAL INSPECTION, NORMOCEPHALIC - Eye Exam Eye Exam: EOMI, PERRL - ENT Exam ENT Exam: Mucous Membranes Moist - Respiratory Exam Respiratory Exam: Clear to PA & Lateral, NORMAL BREATHING PATTERN. absent: Rales, Rhonchi - Cardiovascular Exam Cardiovascular Exam: REGULAR RHYTHM, +S1, +S2 - GI/Abdominal Exam GI & Abdominal Exam: Normal Bowel Sounds, Soft, Unremarkable. absent: Rigid, Tenderness - Extremities Exam Extremities exam: full ROM, normal inspection - Back Exam Back exam: paraspinal tenderness - Neurological Exam Neurological exam: Alert, CN II-XII Intact, Normal Gait, Oriented x3 Additional comments: Motor and sensory grossly intact - Psychiatric Exam Psychiatric exam: Normal Affect, Normal Mood - Skin Skin Exam: Dry, Warm Discharge Plan - Discharge Medications Prescriptions: Calcitriol [Rocaltrol] 1 mcg PO BID 60 Days ml Calcium Carbonate [Caltrate] 600 mg PO BID 30 Days #60 tab Levothyroxine [Synthroid] 50 mcg PO 0600 #30 tab Magnesium Oxide [Mag-Ox] 400 mg PO BID #60 tab Phosphorus/Potassium/Sodium [Neutra-Phos] 1 pkt PO BID 7 Days #14 packet Prednisone [Deltasone] 20 mg PO DAILY #9 tablet - Follow Up Plan Condition: STABLE Disposition: HOME/ ROUTINE Instructions: Hypokalemia (DC), High Potassium Diet Additional Instructions: Follow up with Dr. Mcclelland within 7-10 days upon discharge Follow up with your [employer] Trader/Oncologist at your next scheduled appointment Please take medications as prescribed to you, additional medications you are being prescribed to you are listed below - Magnesium Oxide 400mg by mouth once daily - Calcium Carbonate 600mg by mouth twice a day - Calcitriol 1mg by mouth twice a day - Neurtrophos twice a day for 7 days - Synthroid 50mcg by mouth daily - Stop taking Valsartan - Take Blood pressure at home and hold Norvasc if blood pressure is less than 90 mmHg systolic If you experience continued symptoms of fatigue, weakness, numbness, tetany, chest pain, shortness of breath, consistnet fever >101F, return to the emergency department Referrals: Dc Pereira [Medical Doctor] - <Nate Gary - Last Filed: 11/07/18 15:29> Provider - Provider Date of Admission: 11/02/18 10:26 Attending physician: Nate Gary MD Consults: 11/02/18 10:51 Consult [Physician Consult] Routine Comment: Consulting Provider: João Segovia Consulting Physician: João Segovia Reason for Consult: elevated trop 11/02/18 14:32 Social Work Referral Routine Comment: d/c plan Physician Instructions: Reason For Exam: assess 11/02/18 15:07 Case Management Referral Routine Comment: Physician Instructions: Reason For Exam: Reason for Referral: Discharge Planning 11/02/18 17:44 Nursing Referral for Wound Care Routine Comment: Physician Instructions: Reason For Exam: low lea, heel scabs 11/02/18 19:51 Nursing Referral for Wound Care Routine Comment: Physician Instructions: Reason For Exam: recurrent heal sores 11/03/18 07:08 Consult [Physician Consult] Routine Comment: severe hypocalcemia Consulting Provider: Tiffany Martin Consulting Physician: Tiffany Martin Reason for Consult: severe hypocalcemia 11/03/18 16:29 Gastroenterology Consult Routine Comment: Consulting Provider: Thomas Calle Consulting Physician: Thomas Calle Reason for Consult: worsening of chemical pancreatitis, known to Dr. Calle 11/04/18 12:00 TCU [Evaluation for TRCU] Routine Comment: Physician Instructions: Reason For Exam: Gait dysfunction Hospital Course - Lab Results Lab Results: Micro Results 11/02/18 08:30 Blood Blood Culture - Final NO GROWTH AFTER 5 DAYS 11/02/18 08:30 Blood Gram Stain - Final TEST NOT PERFORMED 11/02/18 08:00 Blood Blood Culture - Final NO GROWTH AFTER 5 DAYS 11/02/18 08:00 Blood Gram Stain - Final TEST NOT PERFORMED 11/02/18 13:30 Naris MRSA Culture (Admit) - Final MRSA NOT DETECTED Most Recent Lab Values WBC 6.6 10^3/uL (4.5-11.0) D 11/07/18 07:05 RBC 2.51 10^6/uL (3.5-6.1) L 11/07/18 07:05 Hgb 9.3 g/dL (12.0-16.0) L 11/07/18 07:05 Hct 27.8 % (36.0-48.0) L 11/07/18 07:05 MCV 110.8 fl (80.0-105.0) H 11/07/18 07:05 MCH 37.1 pg (25.0-35.0) H 11/07/18 07:05 MCHC 33.5 g/dl (31.0-37.0) 11/07/18 07:05 RDW 14.9 % (11.5-14.5) H 11/07/18 07:05 Plt Count 116 10^3/uL (120.0-450.0) L 11/07/18 07:05 MPV 9.9 fl (7.0-11.0) 11/07/18 07:05 Neut % (Auto) 82.4 % (50.0-68.0) H 11/07/18 07:05 Lymph % (Auto) 13.4 % (22.0-35.0) L 11/07/18 07:05 [place] % (Auto) 3.7 % (1.0-6.0) 11/07/18 07:05 Eos % (Auto) 0.3 % (1.5-5.0) L 11/07/18 07:05 Baso % (Auto) 0.2 % (0.0-3.0) 11/07/18 07:05 Lymph # (Auto) 0.9 (1.2-3.4) L 11/07/18 07:05 [place] # (Auto) 0.2 (0.1-0.6) 11/07/18 07:05 Eos # (Auto) 0.0 (0.0-0.7) 11/07/18 07:05 Baso # (Auto) 0.01 K/mm3 (0.0-2.0) 11/07/18 07:05 Absolute Neuts (auto) 5.41 (1.4-6.5) 11/07/18 07:05 PT 16.5 SECONDS (9.4-12.5) H 11/03/18 05:30 INR 1.46 11/03/18 05:30 APTT 35.5 Seconds (26.9-38.3) 11/03/18 05:30 pO2 31 mm/Hg (30-55) 11/02/18 12:15 VBG pH 7.26 (7.32-7.43) L 11/02/18 12:15 VBG pCO2 35.0 (40-60) L 11/02/18 12:15 VBG HCO3 15.7 mmol/l (21-28) L 11/02/18 12:15 VBG Total CO2 16.8 mmol.L (22-28) L 11/02/18 12:15 VBG O2 Sat (Calc) 49.9 % (40-65) 11/02/18 12:15 VBG Base Excess -10.4 mmol/L (0.0-2.0) L 11/02/18 12:15 VBG Potassium 3.5 mmol/L (3.6-5.2) L 11/02/18 12:15 Sodium 134.0 mmol/L (132-148) 11/02/18 12:15 Chloride 95.0 mmol/L (98-107) L 11/02/18 12:15 Glucose 82 mg/dl (65-105) 11/02/18 12:15 Lactate 1.4 mmol/L (0.7-2.1) 11/02/18 12:15 FiO2 21.0 % 11/02/18 12:15 Crit Value Called To Sugar hyde 11/02/18 07:58 Crit Value Called By Carol 11/02/18 07:58 Blood Gas Notified Time 823 11/02/18 07:58 Sodium 135 mmol/L (132-148) 11/07/18 07:05 Potassium 3.4 mmol/L (3.6-5.0) L 11/07/18 07:05 Chloride 102 mmol/L (98-107) 11/07/18 07:05 Carbon Dioxide 27 mmol/L (21-33) 11/07/18 07:05 Anion Gap 9 (10-20) L 11/07/18 07:05 BUN 20 mg/dL (7-21) 11/07/18 07:05 Creatinine 1.4 mg/dl (0.7-1.2) H 11/07/18 07:05 Est GFR ( Amer) 45 11/07/18 07:05 Est GFR (Non-Af Amer) 38 11/07/18 07:05 Random Glucose 87 mg/dL (70-110) 11/07/18 07:05 Uric Acid 9.0 mg/dL (2.5-6.2) H 11/03/18 09:20 Calcium 6.2 mg/dL (8.4-10.5) L* 11/07/18 07:05 Ionized Calcium 2.7 mg/dL (4.80-5.60) L 11/03/18 08:00 Phosphorus 2.6 mg/dL (2.5-4.5) 11/07/18 07:05 Magnesium 1.5 mg/dL (1.7-2.2) L 11/07/18 07:05 Total Bilirubin 0.5 mg/dL (0.2-1.3) 11/07/18 07:05 AST 53 U/L (14-36) H 11/07/18 07:05 ALT 73 U/L (7-56) H 11/07/18 07:05 Alkaline Phosphatase 133 U/L (38-126) H 11/07/18 07:05 Lactate Dehydrogenase 3914 U/L (333-699) H 11/03/18 09:20 Total Creatine Kinase 6256 U/L (35-230) H 11/03/18 05:30 CK-MB (CK-2) 8.3 ng/mL (0.0-3.6) H 11/03/18 05:30 CK-MB (CK-2) % 0.1 % (2.5-3.0) L 11/03/18 05:30 Troponin I 0.17 ng/mL H* 11/03/18 01:08 Total Protein 5.1 g/dL (5.8-8.3) L 11/07/18 07:05 Albumin 2.7 g/dL (3.0-4.8) L 11/07/18 07:05 Globulin 2.4 gm/dL 11/07/18 07:05 Albumin/Globulin Ratio 1.1 (1.1-1.8) 11/07/18 07:05 Triglycerides 232 mg/dL (35-160) H 11/03/18 05:30 Cholesterol 173 mg/dL (130-200) 11/03/18 05:30 LDL Cholesterol Direct 101 mg/dL (0-129) 11/03/18 05:30 HDL Cholesterol 33 mg/dL (29-60) 11/03/18 05:30 Amylase 92 U/L (35-125) 11/02/18 21:26 Lipase 1175 U/L (23-300) H 11/03/18 11:47 Vitamin B12 635 pg/mL (239-931) 11/03/18 05:30 25-OH Vitamin D Total 22 ng/mL (30-100) L 11/03/18 07:15 Folate > 20.0 ng/mL 11/03/18 05:30 Procalcitonin 2.11 NG/ML (0.19-0.49) H 11/03/18 12:15 Free T4 1.00 ng/dL (0.78-2.19) 11/07/18 07:05 Thyroxine (T4) 5.9 ug/dL (5.5-11.0) 11/07/18 07:05 Free T3 pg/mL 2.48 pg/mL (2.77-5.27) L 11/03/18 07:00 Total T3 0.56 ng/mL (0.97-1.69) L 11/04/18 05:30 TSH 3rd Generation 33.60 mIU/mL (0.46-4.68) H 11/07/18 07:05 PTH Intact Whole Molec 777 pg/mL (14-64) H 11/03/18 07:15 Calcium (PTH Intact) TNP 11/02/18 08:00 PTH w/Ion &Tot Calcium 877 pg/mL (14-64) H 11/02/18 08:00 Cortisol AM Sample 11.9 ug/dL (4.46-22.7) 11/07/18 07:05 Venous Blood Potassium 3.5 mmol/L (3.6-5.2) L 11/02/18 12:15 Urine Color Yellow (YELLOW) 11/02/18 13:30 Urine Appearance Sl cloudy (CLEAR) 11/02/18 13:30 Urine pH 5.5 (4.7-8.0) 11/02/18 13:30 Ur Specific Mena 1.025 (1.005-1.035) 11/02/18 13:30 Urine Protein 100 mg/dL (<30 mg/dL) H 11/02/18 13:30 Urine Glucose (UA) Negative mg/dL (NEGATIVE) 11/02/18 13:30 Urine Ketones Negative mg/dL (NEGATIVE) 11/02/18 13:30 Urine Blood Moderate (NEGATIVE) H 11/02/18 13:30 Urine Nitrate Negative (NEGATIVE) 11/02/18 13:30 Urine Bilirubin Negative (NEGATIVE) 11/02/18 13:30 Urine Urobilinogen 0.2 E.U./dL (<1 E.U./dL) 11/02/18 13:30 Ur Leukocyte Esterase Negative Kaye/uL (NEGATIVE) 11/02/18 13:30 Urine RBC 5 - 10 /hpf (0-2) H 11/02/18 13:30 Urine WBC 5 - 10 /hpf (0-6) H 11/02/18 13:30 Ur Epithelial Cells 4 - 5 /hpf (0-5) 11/02/18 13:30 Urine Bacteria Mod /hpf (NONE) 11/02/18 13:30 Urine Eosinophils Negative 11/02/18 14:00 Ur Random Creatinine 79 mg/dL 11/04/18 20:20 U Random Total Protein 81 mg/L 11/02/18 13:30 Ur Random Sodium 64 meq/L 11/04/18 20:20 Ur Random Calcium < 1.0 mg/dL 11/02/18 13:30 Thyroperoxidase Ab <1 IU/mL (<9) 11/03/18 11:25 Thyroglobulin Antibody <1 IU/mL (< OR = 1) 11/03/18 11:25 - Hospital Course Hospital Course: Pt seen and examined by me. I have reviewed the note of the medical records supervisor and I agree with it. I have discussed the assessment and plan with the resident. I have reviewed the medications and the last labs.
[2018-11-07 12:38] VITALS: BP 116/73; PULSE 80; TEMP 98.7
--- NOTE | 2018-11-08 02:32 | PN ---
DATE: 11/07/2018 ENDOCRINOLOGY FOLLOWUP NOTE LOCATION: Room 276. SUBJECTIVE: This is a 68-year-old female with recent admission for symptomatic hypocalcemia with underlying chronic diarrhea and malabsorption, and is now being followed closely for metabolic management. She also has supervening hypothyroidism, related to the intake of her recent oral chemotherapy drug as noted. She remains clinically and hemodynamically stable at this time, and she presented here with hypovolemic shock, requiring IV pressors, which have since then been discontinued. Her latest chemistry showed a BUN of 20, sodium 135, potassium 3.4, chloride 102, CO2 of 27, glucose 87, and creatinine 1.4. Her calcium level is 6.2 with an albumin level of 2.6 and a corrected calcium of 7.6 mg/dL. Her repeat TSH is now 33.6 which is much much higher than the initial levels as noted. Her free T4 is 1 with a total T4 or thyroxine level of 5.9. So at this time, we will continue the modified and higher dosing of the calcitriol given as 1 mcg b.i.d. as ordered with calcium carbonate given as 600 mg b.i.d. as given. We will titrate and increase the Synthroid or levothyroxine to 100 mcg daily before breakfast as ordered. We will obtain serial thyroid studies and titrate the dose regimen accordingly. We will also obtain serial chemistries and supplement accordingly as needed. We will repeat the serum cortisol level, and if the levels are over 20, may discontinue the Solu-Cortef given as 50 mg IV piggyback once daily as ordered. We will follow and advised accordingly. Tiffany Martin MD
--- NOTE | 2018-11-08 03:15 | DS ---
HOSPITAL COURSE: The patient was seen and examined. I do agree with the note of the medical practice assistant. I was involved in the plan of the care. The patient had an extensive hospital course with kidney injury, non-anion gap, metabolic acidosis. She had hypocalcemia, initially with hypokalemia, and all of this has improved. Her hypocalcemia is still low but significantly better than when she first came in. She has no symptoms. She is able to ambulate. Her acute kidney injury is better. She had hypophosphatemia but with the improvement of her kidney function, her phosphorus has resolved. She is actually hypophosphatemic at this point. The patient had hypothyroidism. She was placed on Synthroid. She is going to be discharged and follow up with her primary care doctor, Dr. Mcclellnad. The patient is going to get repeat blood work. I did advice her about the importance of getting the repeat blood work. She is also going to follow up with her oncologist. She did not want to go to a rehab facility. She has been able to ambulate well enough to get discharged to home. The patient should continue the Calcitriol and the calcium orally. She was given phosphorous replacement as well. Her magnesium was replaced in the hospital multiple times and she was also given magnesium tablets to take at home. The patient's TSH remains elevated at 33. Her cortisol level was elevated at 105 and she does not have adrenal insufficiency with these numbers. CONDITION: Stable. ACTIVITY: Increase as tolerated. Ntae Gary MD
[2018-11-08] MEDS ORDERED: Levothyroxine 100 MCG TAB PO SCH (07:30)
== END 2018-11-07 14:14 | disposition home or self-care (01) | DRG 682 ==
LOC: ED 07:23 → ERH 10:26 → ICU 11:37 → 2RSO 11-04 19:01
PROVIDERS: ADMIT Internal Medicine Nephrology; ATTEND Internal Medicine Nephrology
DX: N17.9 Acute kidney failure, unspecified (principal); R57.1 Hypovolemic shock; E87.2 Acidosis; C64.2 Malignant neoplasm of left kidney, except renal pelvis; C79.51 Secondary malignant neoplasm of bone; E27.40 Unspecified adrenocortical insufficiency; E86.0 Dehydration; E78.5 Hyperlipidemia, unspecified; I95.9 Hypotension, unspecified; E83.51 Hypocalcemia; K12.1 Other forms of stomatitis; I10 Essential (primary) hypertension; R19.7 Diarrhea, unspecified; E87.6 Hypokalemia; E83.42 Hypomagnesemia; E03.9 Hypothyroidism, unspecified; E06.3 Autoimmune thyroiditis; R11.2 Nausea with vomiting, unspecified; E83.39 Other disorders of phosphorus metabolism; Z90.5 Acquired absence of kidney; Z79.899 Other long term (current) drug therapy; Z87.891 Personal history of nicotine dependence